=== PATIENT | female | born 1990 | race Caucasian/White ===

== ENCOUNTER 2016-05-11 22:07 | Emergency (ER) | payer OTHER ==
--- NOTE | 2016-05-12 00:14 | EDM.PDOC ---
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 Tonight patient had some spotting which is now completely resolved. She has no discharge has not passed any tissue. Occasional very mild pelvic cramping now resolved. Normal bowel and bladder habits. Patient has no abnormal vaginal discharge other than the trace spotting which she experienced earlier Review of systems: As per history of present illness and below otherwise all systems reviewed and negative. Past medical history: As per history of present illness and as reviewed below otherwise noncontributory. Surgical history: As per history of present illness and as reviewed below otherwise noncontributory. Social history: No reported history of drug or alcohol abuse. Family history: As per history of present illness and as reviewed below otherwise noncontributory. Physical exam: HEENT: Atraumatic, normocephalic, negative for conjunctival pallor or scleral icterus, mucous membranes moist, throat clear, neck supple, nontender, trachea midline. Lungs: Clear to auscultation, breath sounds equal bilaterally, chest nontender. Heart: S1S2, regular, negative for clicks, rubs, or JVD. Abdomen: Soft, nondistended, nontender. Negative for masses or hepatosplenomegaly. Negative for costovertebral tenderness. Pelvis: Stable nontender. Genitourinary: Patient refusing pelvic exam as she feels it is not necessary tonight given that her pain and spotting have completely resolved and she has no discharge. Rectal: Deferred. Extremities: Atraumatic, negative for cords or calf pain. Neurovascular unremarkable. Neuro: Awake, alert, oriented. Motor and sensory unremarkable throughout. Exam nonfocal. Diagnostics: [] Therapeutics: [] Impression: [Times and symptoms consistent with spotting in early discussed with patient possibility of insinuating within normal healthy however it may represent threatened miscarriage. Patient is Rh positive. Both she and her mother are well aware that her blood type is B+. Quantitative hCG is over 4000. This number was given to patient for outpatient followup with her doctor in comparative use. Offered pelvic exam to rule out passing tissue or active bleeding however patient does not feel this is indicated tonight and elects to not have a pelvic exam as she is not having any pain in her spotting completely resolved. She will return immediately for worsening or severe bleeding or uncontrolled pain. She is aware to do pelvic rest drink plenty of fluids.] And followup with her RACEBOOK WRITER doctor in one to 2 days. Patient and family agree with outpatient followup and strict return precautions given. Plan: [] Definitive disposition and diagnosis as appropriate pending reevaluation and review of above. - Related Data Allergies/ADRs: Allergies Allergy/AdvReac Type Severity Reaction Status Date / Time amoxicillin Allergy Airway Verified 05/11/16 22:12 Tightness Home Meds: Home Meds Subcutaneous Insulin Pump [Insulin Pump] 1 dose SQ DAILY 06/10/14 [History] Past Medical History HEENT History: Reports: None Cardiovascular History: Reports: None Respiratory History: Reports: None Gastrointestinal History: Reports: None Genitourinary History: Reports: None RACEBOOK WRITER History: Reports: None Neurological History: Reports: Migraines Psychiatric History: Reports: None Endocrine/Metabolic History: Reports: Diabetes, type I Dermatologic History: Reports: None - Infectious Disease History Infectious Disease History: Reports: None - Past Surgical History Female Surgical History: Reports: None Other Endocrine Surgeries/Procedures: Patient has an insulin pump Musculoskeletal Surgical History: Reports: Other (see below) Other Musculoskeletal Surgeries/Procedures:: right knee surgery and right leg extraction Social & Family History - Family History Family Medical History: Noncontributory - Tobacco Use Smoking Status *Q: Never Smoker Years of Tobacco use: 10 Used Tobacco, but Quit: Yes Month Tobacco Last Used: 02/2013 Second Hand Smoke Exposure: No - Caffeine Use Caffeine Use: Reports: Coffee, Energy drinks, Soda - Alcohol Use Days Per Week of Alcohol Use: 1 Number of Drinks Per Day: 1 Total Drinks Per Week: 1 - Recreational Drug Use Recreational Drug Use: No ED ROS GENERAL - Review of Systems Review Of Systems: See Below (History of present illness) ED EXAM - Physical Exam Exam: See Below (History of present illness) Course - Vital Signs Last Recorded V/S: Last Vital Signs Temp 36.6 C 05/11/16 22:13 Pulse 68 05/11/16 22:13 Resp 18 05/11/16 22:13 BP 131/72 05/11/16 22:13 Pulse Ox 99 05/11/16 22:13 - Orders/Labs/Meds Orders: Active Orders 24 hr Category Date Time Status OB 1st Tri Ea Addl Gest [US] Stat Exams 05/11/16 22:22 Ordered Labs: Laboratory Tests 05/11/16 05/11/16 05/11/16 Range/Units 22:38 22:38 22:48 Hgb 14.7 (12.0-16.0) g/dL Hct 44.1 (36.0-46.0) % HCG, Quant 4561.2 mIU/mL Blood Type B POSITIVE Departure - Departure Time of Disposition: 00:09 Disposition: Home, Self-Care 01 Condition: good Clinical Impression: Threatened miscarriage in early , Bleeding in early Referrals: Debbie Concepcion MD [Primary Care Provider] - Forms: ED Department Discharge Additional Instructions: As per your description by your RACEBOOK WRITER doctor your is approximately 7 weeks gestation. You had spotting or mild bleeding today however your hemoglobin was normal which means you're not anemic. your quantitative hCG was 4561. Followup with your RACEBOOK WRITER doctor to repeat this level for comparison as an indication as to whether your is progressing normally. As you and your mother are well aware your blood type is B+, a blood type which does not require treatment with special medication for bleeding in . Followup with her RACEBOOK WRITER doctor in one to 2 days for reevaluation and repeat quantitative hCG and return immediately for new severe or worsening symptoms specifically severe bleeding or uncontrolled pain. - My Orders Last 24 Hours: My Active Orders 05/11/16 22:22 OB 1st Tri Ea Addl Gest [US] Stat - Assessment/Plan Last 24 Hours: My Active Orders 05/11/16 22:22 OB 1st Tri Ea Addl Gest [US] Stat
[2016-05-12 00:41] VITALS: BP 129/87
== END 2016-05-12 00:38 | disposition home or self-care (01) ==
LOC: MW.ED 22:07
DX: O20.0 Threatened abortion (principal); O20.9 Hemorrhage in early pregnancy, unspecified; E10.9 Type 1 diabetes mellitus without complications; Z3A.01 Less than 8 weeks gestation of pregnancy; Z88.1 Allergy status to other antibiotic agents; Z79.899 Other long term (current) drug therapy; Z98.890 Other specified postprocedural states
CPT/HCPCS: 36415; 84702; 85014; 85018; 86900; 86901; 99283; 99284

== ENCOUNTER 2016-07-28 08:46 | Emergency (ER) | payer OTHER ==
[2016-07-28] MEDS ORDERED: Benzocaine 20% Topical Spray UD MUCMEM ONE (09:20)
[2016-07-28] MEDS ORDERED: Lidocaine 2% Viscous Solution 15 ML Cup PO ONE (09:20)
--- NOTE | 2016-07-28 09:25 | EDM.PDOC ---
ED HPI GENERAL MEDICAL PROBLEM - General Chief Complaint: ENT Problem Stated Complaint: TOOTH PAIN Time Seen by Provider: 07/28/16 09:13 - History of Present Illness INITIAL COMMENTS - FREE TEXT/NARRATIVE: HISTORY AND PHYSICAL: History of present illness: The patient is a 26-year-old female who is up roughly 9 weeks and presents with complaints of dental pain for last several days. Patient has long- standing history of dental problems and has contacted her dentist but cannot get in for several months. She is here for the pain and she is worried about infection. She has no related complaints Review of systems: As per history of present illness and below otherwise all systems reviewed and negative. Past medical history: As per history of present illness and as reviewed below otherwise noncontributory. Surgical history: As per history of present illness and as reviewed below otherwise noncontributory. Social history: No reported history of drug or alcohol abuse. Family history: As per history of present illness and as reviewed below otherwise noncontributory. Physical exam: HEENT: Atraumatic, normocephalic, pupils reactive, negative for conjunctival pallor or scleral icterus, mucous membranes moist, throat clear, neck supple, nontender, trachea midline. No cervical adenopathy and multiple areas of dental decay and disease the most noteworthy is the left lower molar where there is a fractured tooth and swelling of the gum but no fluctuance Lungs: Clear to auscultation, breath sounds equal bilaterally, chest nontender. Heart: S1S2, regular rate and rhythm no overt murmurs Abdomen: Soft, nondistended, nontender. NABS Genitourinary: Deferred. Rectal: Deferred. Extremities: Atraumatic, negative for cords or calf pain. Neurovascular unremarkable. Neuro: Awake, alert, oriented. Cranial nerves II through XII unremarkable. Cerebellum unremarkable. Motor and sensory unremarkable throughout. Exam nonfocal. Diagnostics: [] Therapeutics: Dental balls I told the patient that I would give her the dental balls but I cannot give her recommend anything stronger than Tylenol for pain. I will give her clindamycin as she is allergic to amoxicillin she call her OB doctor for further pain management Impression: Dental disease and dental pain and infection Definitive disposition and diagnosis as appropriate pending reevaluation and review of above. - Related Data Allergies Allergy/AdvReac Type Severity Reaction Status Date / Time amoxicillin Allergy Airway Verified 07/28/16 09:19 Tightness Home Meds: Home Meds Subcutaneous Insulin Pump [Insulin Pump] 1 dose SQ DAILY 06/10/14 [History] Folic Acid 1 mg PO DAILY 07/28/16 [History] PNV95/Ferrous Fumarate/FA [ Tablet] 1 each PO DAILY 07/28/16 [History] Past Medical History HEENT History: Reports: None Cardiovascular History: Reports: None Respiratory History: Reports: None Gastrointestinal History: Reports: None Genitourinary History: Reports: None ULTRASOUND TECH History: Reports: None Neurological History: Reports: Migraines Psychiatric History: Reports: None Endocrine/Metabolic History: Reports: Diabetes, Type I Dermatologic History: Reports: None - Infectious Disease History Infectious Disease History: Reports: None - Past Surgical History Musculoskeletal Surgical History: Reports: Other (See Below) Social & Family History - Family History Family Medical History: Noncontributory - Tobacco Use Smoking Status *Q: Never Smoker Years of Tobacco use: 10 Used Tobacco, but Quit: Yes Month Tobacco Last Used: 02/2013 Second Hand Smoke Exposure: No - Caffeine Use Caffeine Use: Reports: Coffee, Energy Drinks, Soda - Alcohol Use Days Per Week of Alcohol Use: 1 Number of Drinks Per Day: 1 Total Drinks Per Week: 1 - Recreational Drug Use Recreational Drug Use: No ED ROS GENERAL - Review of Systems Review Of Systems: ROS reveals no pertinent complaints other than HPI. ED EXAM, GENERAL - Physical Exam Exam: See Below (See dictation) Course - Orders/Labs/Meds Meds: Medications Discontinued Medications Generic Name Dose Route Start Last Admin Trade Name Freq PRN Reason Stop Dose Admin Benzocaine 2 each 07/28/16 09:20 Hurricaine One 20% MUCMEM 07/28/16 09:21 ONETIME ONE Lidocaine HCl 15 ml 07/28/16 09:20 Xylocaine 2% Viscous PO 07/28/16 09:21 ONETIME ONE Departure - Departure Time of Disposition: 09:24 Disposition: Home, Self-Care 01 Condition: Good Clinical Impression: Dental infection - Discharge Information Forms: ED Department Discharge Additional Instructions: The following information is given to patients seen in the emergency department who are being discharged to home. This information is to outline your options for follow-up care. We provide all patients seen in our emergency department with a follow-up referral. The need for follow-up, as well as the timing and circumstances, are variable depending upon the specifics of your emergency department visit. If you don't have a primary care physician on staff, we will provide you with a referral. We always advise you to contact your personal physician following an emergency department visit to inform them of the circumstance of the visit and for follow-up with them and/or the need for any referrals to a consulting specialist. The emergency department will also refer you to a specialist when appropriate. This referral assures that you have the opportunity for followup care with a specialist. All of these measure are taken in an effort to provide you with optimal care, which includes your followup. Under all circumstances we always encourage you to contact your private physician who remains a resource for coordinating your care. When calling for followup care, please make the office aware that this follow-up is from your recent emergency room visit. If for any reason you are refused follow-up, please contact the [facility] emergency department at and ask to speak to the emergency department charge nurse. [facility] Primary care- Internal Medicine and Family [place] [phone] Use ice to face for any swelling take all medications as prescribed and use dental balls for pain as well as [id number] Tylenol. Please follow-up with a dentist for definitive care and treatment and call your OB MD for further recommendations for pain management. Return to ER as needed and as discussed
[2016-07-28 12:04] VITALS: BP 110/75
== END 2016-07-28 09:48 | disposition home or self-care (01) ==
LOC: MW.ED 08:46
DX: O99.611 Diseases of the digestive system complicating pregnancy, first trimester (principal); K04.7 Periapical abscess without sinus; G43.909 Migraine, unspecified, not intractable, without status migrainosus; E10.9 Type 1 diabetes mellitus without complications; Z79.899 Other long term (current) drug therapy; Z87.891 Personal history of nicotine dependence; Z88.1 Allergy status to other antibiotic agents; Z3A.09 9 weeks gestation of pregnancy
CPT/HCPCS: 99282; A9270; 99283

== ENCOUNTER 2016-08-10 21:50 | Emergency (ER) | payer OTHER ==
--- NOTE | 2016-08-10 22:07 | EDM.PDOC ---
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 Stated Complaint: 11 WEEKS/CRAMPING Time Seen by Provider: 08/10/16 22:07 Source of Information: Reports: Patient - History of Present Illness INITIAL COMMENTS - FREE TEXT/NARRATIVE: HISTORY AND PHYSICAL: History of present illness: []Patient with history of 5 previous pregnancies all miscarried prior to 11 weeks presents with 11 weeks with IUP and vaginal bleeding she has had some crampy pelvic pain throughout the day and passed several brown clots No fever nausea vomiting chills sweats no chest pain shortness breath headache dizziness or palpitation no bowel or urine symptoms Review of systems: As per history of present illness and below otherwise all systems reviewed and negative. Past medical history: As per history of present illness and as reviewed below otherwise noncontributory. Surgical history: As per history of present illness and as reviewed below otherwise noncontributory. Social history: No reported history of drug or alcohol abuse. Family history: As per history of present illness and as reviewed below otherwise noncontributory. Physical exam: HEENT: Atraumatic, normocephalic, pupils reactive, negative for conjunctival pallor or scleral icterus, mucous membranes moist, throat clear, neck supple, nontender, trachea midline. Lungs: Clear to auscultation, breath sounds equal bilaterally, chest nontender. Heart: S1S2, regular, negative for clicks, rubs, or JVD. Abdomen: Soft, nondistended, nontender. Negative for masses or hepatosplenomegaly. Negative for costovertebral tenderness. Pelvis: Stable nontender. Genitourinary: On vaginal exam cervix is closed there is some whitish mucus however no blood no mass scar or lesion internal or external Rectal: Deferred. Extremities: Atraumatic, negative for cords or calf pain. Neurovascular unremarkable. Neuro: Awake, alert, oriented. Cranial nerves II through XII unremarkable. Cerebellum unremarkable. Motor and sensory unremarkable throughout. Exam nonfocal. Diagnostics: []Lab as below Ultrasound OB Limited Wet prep Therapeutics: []1 L normal saline bolus Regular insulin 10 units IV Impression: Hyperglycemia []11 weeks with IUP ABO type B positive on file Threatened No heart activity Definitive disposition and diagnosis as appropriate pending reevaluation and review of above. lower abdominal area Pain Score (Numeric/FACES): 5 - Related Data Allergies Allergy/AdvReac Type Severity Reaction Status Date / Time amoxicillin Allergy Airway Verified 08/10/16 21:58 Tightness Home Meds: Home Meds Subcutaneous Insulin Pump [Insulin Pump] 1 dose SQ DAILY 06/10/14 [History] Folic Acid 1 mg PO DAILY 07/28/16 [History] PNV95/Ferrous Fumarate/FA [ Tablet] 1 each PO DAILY 07/28/16 [History] Past Medical History HEENT History: Reports: None Cardiovascular History: Reports: None Respiratory History: Reports: None Gastrointestinal History: Reports: None Genitourinary History: Reports: None BALLASTER History: 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: Neurological History: Reports: Migraines Psychiatric History: Reports: Anxiety, Dementia Endocrine/Metabolic History: Reports: Diabetes, Type I Hematologic History: Reports: None Immunologic History: Reports: None Oncologic (Cancer) History: Reports: None Dermatologic History: Reports: None - Infectious Disease History Infectious Disease History: Reports: None - Past Surgical History Musculoskeletal Surgical History: Reports: Other (See Below) Social & Family History - Family History Family Medical History: Noncontributory - Tobacco Use Smoking Status *Q: Never Smoker Years of Tobacco use: 10 Used Tobacco, but Quit: Yes Month Tobacco Last Used: 02/2013 Second Hand Smoke Exposure: No - Caffeine Use Caffeine Use: Reports: Coffee, Tea Other Caffeine Use: 1-2 cups per day - Alcohol Use Days Per Week of Alcohol Use: 1 Number of Drinks Per Day: 1 Total Drinks Per Week: 1 - Recreational Drug Use Recreational Drug Use: No ED ROS GENERAL - Review of Systems Review Of Systems: See Below ED EXAM, GENERAL - Physical Exam Exam: See Below Course - Vital Signs Last Recorded V/S: Last Vital Signs Temp 36.4 C 08/10/16 21:58 Pulse 66 08/10/16 23:23 Resp 18 08/10/16 23:23 BP 134/81 08/10/16 23:23 Pulse Ox 99 08/10/16 23:23 - Orders/Labs/Meds Orders: Active Orders 24 hr Category Date Time Status Accu Check [Blood Glucose Check, Bedside] [RC] ONETIME Care 08/10/16 23:37 Active OB Ltd 1 or More Fetus [US] Stat Exams 08/10/16 22:05 Taken ABG [BLOOD GAS ARTERIAL] [BG] Stat Lab 08/10/16 22:49 Ordered Labs: Laboratory Tests 08/10/16 08/10/16 08/10/16 Range/Units 22:14 22:16 22:16 WBC 8.36 (4.0-11.0) K/uL RBC 4.55 (4.30-5.90) M/uL Hgb 13.5 (12.0-16.0) g/dL Hct 38.8 (36.0-46.0) % MCV 85.3 (80.0-98.0) fL MCH 29.7 (27.0-32.0) pg MCHC 34.8 (31.0-37.0) g/dL RDW Std Deviation 39.4 (28.0-62.0) fl RDW Coeff of Thomas 13 (11.0-15.0) % Plt Count 470 H (150-400) K/uL MPV 10.00 (7.40-12.00) fL Neut % (Auto) 37.0 L (48.0-80.0) % Lymph % (Auto) 55.7 H (16.0-40.0) % Ashe % (Auto) 6.1 (0.0-15.0) % Eos % (Auto) 0.8 (0.0-7.0) % Baso % (Auto) 0.4 (0.0-1.5) % Neut # (Auto) 3.1 (1.4-5.7) K/uL Lymph # (Auto) 4.7 H (0.6-2.4) K/uL Ashe # (Auto) 0.5 (0.0-0.8) K/uL Eos # (Auto) 0.1 (0.0-0.7) K/uL Baso # (Auto) 0.0 (0.0-0.1) K/uL Nucleated RBC % 0.0 /100WBC Nucleated RBCs # 0 K/uL Sodium 130 L (136-146) mmol/L Potassium 3.9 (3.5-5.1) mmol/L Chloride 98 (98-110) mmol/L Carbon Dioxide 20 L (21-31) mmol/L BUN 9 (6.0-23.0) mg/dL Creatinine 1.2 (0.6-1.5) mg/dL Est Cr Clr Drug Dosing 59.80 mL/min Estimated GFR (MDRD) 55.2 ml/min Glucose 609 H* (60-110) mg/dL Calcium 9.4 (8.8-10.8) mg/dL Total Bilirubin 0.4 (0.1-1.5) mg/dL AST 10 (5-40) IU/L ALT 9 (8-54) IU/L Alkaline Phosphatase 104 (40-150) Total Protein 7.2 (6.0-8.0) g/dL Albumin 3.9 (3.5-5.0) g/dL Globulin 3.3 (2.0-3.5) g/dL Albumin/Globulin Ratio 1.2 L (1.3-2.8) HCG, Quant 14234.9 mIU/mL Urine Color YELLOW Urine Appearance CLEAR Urine pH 6.0 (5.0-8.0) Ur Specific [place] <= 1.005 (1.001-1.035) Urine Protein NEGATIVE (NEGATIVE) mg/dL Urine Glucose (UA) >=1000 (NEGATIVE) mg/dL Urine Ketones NEGATIVE (NEGATIVE) mg/dL Urine Occult Blood NEGATIVE (NEGATIVE) Urine Nitrite NEGATIVE (NEGATIVE) Urine Bilirubin NEGATIVE (NEGATIVE) Urine Urobilinogen 0.2 (<2.0) EU/dL Ur Leukocyte Esterase NEGATIVE (NEGATIVE) Urine RBC 0-1 (0-2/HPF) Urine WBC 0-1 (0-5/HPF) Ur Epithelial Cells FEW (NONE-FEW) Urine Bacteria RARE (NEGATIVE) Madyson species DNA (NEGATIVE) Gardnerella DNA Probe Trichomonas DNA Probe (NEGATIVE) 08/10/16 Range/Units 22:35 WBC (4.0-11.0) K/uL RBC (4.30-5.90) M/uL Hgb (12.0-16.0) g/dL Hct (36.0-46.0) % MCV (80.0-98.0) fL MCH (27.0-32.0) pg MCHC (31.0-37.0) g/dL RDW Std Deviation (28.0-62.0) fl RDW Coeff of Thomas (11.0-15.0) % Plt Count (150-400) K/uL MPV (7.40-12.00) fL Neut % (Auto) (48.0-80.0) % Lymph % (Auto) (16.0-40.0) % Ashe % (Auto) (0.0-15.0) % Eos % (Auto) (0.0-7.0) % Baso % (Auto) (0.0-1.5) % Neut # (Auto) (1.4-5.7) K/uL Lymph # (Auto) (0.6-2.4) K/uL Ashe # (Auto) (0.0-0.8) K/uL Eos # (Auto) (0.0-0.7) K/uL Baso # (Auto) (0.0-0.1) K/uL Nucleated RBC % /100WBC Nucleated RBCs # K/uL Sodium (136-146) mmol/L Potassium (3.5-5.1) mmol/L Chloride (98-110) mmol/L Carbon Dioxide (21-31) mmol/L BUN (6.0-23.0) mg/dL Creatinine (0.6-1.5) mg/dL Est Cr Clr Drug Dosing mL/min Estimated GFR (MDRD) ml/min Glucose (60-110) mg/dL Calcium (8.8-10.8) mg/dL Total Bilirubin (0.1-1.5) mg/dL AST (5-40) IU/L ALT (8-54) IU/L Alkaline Phosphatase (40-150) Total Protein (6.0-8.0) g/dL Albumin (3.5-5.0) g/dL Globulin (2.0-3.5) g/dL Albumin/Globulin Ratio (1.3-2.8) HCG, Quant mIU/mL Urine Color Urine Appearance Urine pH (5.0-8.0) Ur Specific [place] (1.001-1.035) Urine Protein (NEGATIVE) mg/dL Urine Glucose (UA) (NEGATIVE) mg/dL Urine Ketones (NEGATIVE) mg/dL Urine Occult Blood (NEGATIVE) Urine Nitrite (NEGATIVE) Urine Bilirubin (NEGATIVE) Urine Urobilinogen (<2.0) EU/dL Ur Leukocyte Esterase (NEGATIVE) Urine RBC (0-2/HPF) Urine WBC (0-5/HPF) Ur Epithelial Cells (NONE-FEW) Urine Bacteria (NEGATIVE) Madyson species DNA POSITIVE H (NEGATIVE) Gardnerella DNA Probe NEGATIVE Trichomonas DNA Probe NEGATIVE (NEGATIVE) Meds: Medications Discontinued Medications Generic Name Dose Route Start Last Admin Trade Name Holley PRN Reason Stop Dose Admin Sodium Chloride 1,000 mls @ 999 mls/hr 08/10/16 22:47 08/10/16 23:18 Normal Saline IV 08/10/16 23:47 999 mls/hr STAT ONE Administration Insulin Human Regular 10 unit 08/10/16 22:48 08/10/16 23:19 Novolin R IVPUSH 08/10/16 22:49 10 units ONETIME ONE Administration Protocol Departure - Departure Time of Disposition: 23:54 Disposition: Home, Self-Care 01 Condition: Good Clinical Impression: Threatened , Hyperglycemia - Discharge Information Forms: ED Department Discharge - My Orders Last 24 Hours: My Active Orders 08/10/16 22:05 OB Ltd 1 or More Fetus [US] Stat 08/10/16 22:49 ABG [BLOOD GAS ARTERIAL] [BG] Stat 08/10/16 23:37 Accu Check [Blood Glucose Check, Bedside] [RC] ONETIME - Assessment/Plan Last 24 Hours: My Active Orders 08/10/16 22:05 OB Ltd 1 or More Fetus [US] Stat 08/10/16 22:49 ABG [BLOOD GAS ARTERIAL] [BG] Stat 08/10/16 23:37 Accu Check [Blood Glucose Check, Bedside] [RC] ONETIME
[2016-08-10] MEDS ORDERED: Sodium Chloride 0.9% 1,000 ML IV ONE (22:47)
[2016-08-10] MEDS ORDERED: Insulin Regular, Human 100 Units/ML 10 ML Vial IVPUSH ONE (22:48)
[2016-08-11 02:12] VITALS: BP 110/77
--- NOTE | 2016-08-11 16:03 | US ---
EXAM DATE: 08/10/16 PATIENT'S AGE: 26 Patient: BERNABE VICK Facility: [place], [place] Site . Site : 1990 Study: US OB Pelvis [id number]/[id number] 11:09:08 PM Ordering Physician: Shaan Brownlee Final Report: INDICATION: Bleeding and cramping TECHNIQUE: Ultrasound OB pelvis transvaginal. Real time echevarria scale imaging of the pelvis was performed. COMPARISON: None FINDINGS: LMP: 05/22/2016 Gestational age by LMP: 11 weeks 3 days Estimated due date by LMP: 02/26/2017 Sonographic imaging demonstrates a single living intrauterine gestation. No heart rate demonstrated. The embryo`s crown rump length measurement of 3.49 cm corresponds to a gestational age of 10 weeks 3 days with a sonographic due date of 03/05/2017. The fetus has a edematous appearance. No motion demonstrated. A yolk sac is identified. With that The placenta has not yet developed. The gestational sac has a normal appearance and there is no evidence of a perigestational hemorrhage. The amount of fluid within the sac appears appropriate for gestational age. The cervix is definitively demonstrated. The myometrium appears normal. The ovaries are of normal size. There are no suspicious fluid collections noted in the cul-de-sac. IMPRESSION: Single intrauterine with crown-rump length consistent with a gestational age of 10 weeks 3 days. This compares to a gestational age by LMP of 11 weeks 3 days. No heart motion demonstrated. The fetus has an edematous appearance with no evidence of activity. Dictated by Pablo Dumont MD @ 08/10/2016 11:23:21 PM Dictated by: Pablo Dumont MD @ 08/10/2016 23:23:35 (Electronic Signature) Report Signed by Proxy. RAUL
== END 2016-08-11 00:05 | disposition home or self-care (01) ==
LOC: MW.ED 21:50
DX: O20.0 Threatened abortion (principal); O24.011 Pre-existing type 1 diabetes mellitus, in pregnancy, first trimester; E10.65 Type 1 diabetes mellitus with hyperglycemia; Z87.891 Personal history of nicotine dependence; Z88.1 Allergy status to other antibiotic agents; Z3A.11 11 weeks gestation of pregnancy
CPT/HCPCS: 36415; 76815; 80053; 81001; 82962; 84702; 85025; 87480; 87510; 87660; 96361; 96374; 99284; J7040; 99283; J1815-GY

== ENCOUNTER 2016-08-16 06:27 | Day surgery (SDC) | payer OTHER ==
[~2016-08-16 06:27] MED LIST: Sodium Chloride 0.9% 10 ML Syringe FLUSH PRN; Sodium Chloride 0.9% 2.5 ML Syringe FLUSH PRN
--- NOTE | 2016-08-16 06:48 | PCM.PREANE ---
Preanesthetic Assessment - Anesthesia/Transfusion/Family Hx Anesthesia History: Prior Anesthesia Without Reaction Family History of Anesthesia Reaction: No Transfusion History: No Prior Transfusion(s) Intubation History: Unknown - Review of Systems General: No Symptoms Pulmonary: No Symptoms Cardiovascular: No Symptoms Gastrointestinal: No symptoms Neurological: No Symptoms Other: Reports: None - Physical Assessment O2 Sat by Pulse Oximetry: 98 Respiratory Rate: 16 Vital Signs: Last Vital Signs Temp 36.7 C 08/16/16 06:33 Pulse 67 08/16/16 06:33 Resp 16 08/16/16 06:33 BP 113/67 08/16/16 06:33 Pulse Ox 98 08/16/16 06:33 Height: 1.6 m Weight: 61 kg ASA Class: 2 Mental Status: Alert & Oriented x3 Airway Class: Mallampati = 2 Dentition: Reports: Normal Dentition Thyro-Mental Finger Breadths: 3 Mouth Opening Finger Breadths: 2 ROM/Head Extension: Full Lungs: Clear to auscultation, Normal respiratory effort Cardiovascular: Regular Rate, Regular Rhythm - Allergies Allergies/Adverse Reactions: Allergies Allergy/AdvReac Type Severity Reaction Status Date / Time amoxicillin Allergy Airway Verified 08/10/16 21:58 Tightness - Blood Blood Available: No - Anesthesia Plan Pre-Op Medication Ordered: None - Acknowledgements Anesthesia Type Planned: General Anesthesia Pt an Appropriate Candidate for the Planned Anesthesia: Yes Alternatives and Risks of Anesthesia Discussed w Pt/Guardian: Yes Pt/Guardian Understands and Agrees with Anesthesia Plan: Yes PreAnesthesia Questionnaire HEENT History: Reports: None Cardiovascular History: Reports: None Respiratory History: Reports: Asthma (very,very mild asthma) Gastrointestinal History: Reports: None Genitourinary History: Reports: None 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 Neurological History: Reports: Migraines Psychiatric History: Reports: Anxiety, Depression Endocrine/Metabolic History: Reports: Diabetes, Type I (since age9, now has insulin pump with sensor, glucose level 204 this morning) Hematologic History: Reports: None Immunologic History: Reports: None Oncologic (Cancer) History: Reports: None Dermatologic History: Reports: None - Infectious Disease History Infectious Disease History: Reports: None - Past Surgical History Head Surgeries/Procedures: Reports: None Female Surgical History: Reports: None Other Endocrine Surgeries/Procedures: Patient has an insulin pump Musculoskeletal Surgical History: Reports: Other (See Below) Other Musculoskeletal Surgeries/Procedures:: right knee surgery and right leg extraction Dermatological Surgical History: Reports: Other (See Below) (brown recluse spider bite infection I@D '09) - SUBSTANCE USE Smoking Status *Q: Former Smoker (quit 3 years ago) Second Hand Smoke Exposure: No Days Per Week of Alcohol Use: 1 Number of Drinks Per Day: 1 Total Drinks Per Week: 1 Recreational Drug Use History: No - HOME MEDS Home Medications: Home Meds Subcutaneous Insulin Pump [Insulin Pump] 1 dose SQ ASDIRECTED 06/10/14 [History] Folic Acid 1 mg PO DAILY 07/28/16 [History] PNV95/Ferrous Fumarate/FA [ Tablet] 1 each PO DAILY 07/28/16 [History] - CURRENT (IN HOUSE) MEDS Current Meds: Current Medications Sodium Chloride (Saline Flush) 10 ml FLUSH ASDIRECTED PRN PRN Reason: Keep Vein Open Sodium Chloride (Saline Flush) 2.5 ml FLUSH ASDIRECTED PRN PRN Reason: Keep Vein Open
[2016-08-16] MEDS ORDERED: Misoprostol 200 MCG Tab ONE (07:34)
[2016-08-16] MEDS ORDERED: Propofol 200 MG/20 ML SDV ONE (07:36)
[2016-08-16] MEDS ORDERED: fentaNYL 100 MCG/2 ML SDV ONE ×2 (07:36→08:21)
[2016-08-16] MEDS ORDERED: Lidocaine 2% 5 ML SDV ONE (07:36)
[2016-08-16] MEDS ORDERED: Midazolam 1 MG/ML 2 ML SDV ONE (07:37)
[2016-08-16] MEDS ORDERED: Ondansetron 4 MG/2 ML SDV ONE (08:21)
[2016-08-16] MEDS ORDERED: Ketorolac 30 MG/ML SDV ONE (08:21)
[2016-08-16] MEDS ORDERED: fentaNYL 100 MCG/2 ML SDV IVPUSH PRN (08:23)
--- NOTE | 2016-08-16 08:53 | PCM.OPNOTE ---
- General Post-Op/Procedure Note Date of Surgery/Procedure: 08/16/16 Operative Procedure(s): Suction D&C Findings: Products of conception Pre Op Diagnosis: Missed Post-Op Diagnosis: Same Anesthesia Technique: General LMA Primary Surgeon: Kylie Ventura Fluid Replacement, Intraop: 700 EBL in mLs: 60 Condition: Good Free Text/Narrative:: Dictation [id number]
[2016-08-16 09:41] VITALS: BP 134/62
--- NOTE | 2016-08-16 10:35 | OR ---
SURGEON: Kylie Ventura M.D. DATE OF PROCEDURE: 08/16/2016 PREOPERATIVE DIAGNOSIS: Missed . POSTOPERATIVE DIAGNOSIS: Missed . PROCEDURE: Suction dilation and curettage. ANESTHESIA: General LMA. ESTIMATED BLOOD LOSS: 60 mL. FLUIDS: 700 mL crystalloid. COMPLICATIONS: None. FINDINGS: Uterus sounding to approximately 8-9 cm with products of conception returned. DISPOSITION: The patient to PACU, stable. PROCEDURE DETAILS: Jacqueline is a 26-year-old female, who recently has been diagnosed with a missed . She has falling hCG levels and on examination with ultrasound, fetus is measuring 10 weeks with no cardiac activity where there had previously been cardiac activity present. Complicating her clinical presentation is the fact that she is type 1 diabetic with insulin pump and hemoglobin A1c of 13.1. Glucose this morning was 204. After discussing options with her, she would like to proceed with suction D and C. Risks of the procedure have been discussed. Proper consent obtained. The patient was taken to operating room, where she underwent general LMA, was placed in modified dorsal lithotomy position and was prepped and draped in usual sterile fashion. The bladder was drained. SCDs to lower extremities. Time-out was performed. Speculum was introduced in the vagina. Posterior lip of cervix was grasped with an Allis clamp. Cervix was gently dilated to 9 mm after sounding to 8 cm. Using an 8 mm curved curette, this was gently introduced to the fundus and suction applied, was able to evacuate the uterine cavity of products of conception. Gentle curettage was now performed. Myometrial tissue was able to be palpated circumferentially. The patient has tolerated this procedure well. Hemostasis appears evident. All specimens will be sent to pathology. All instruments were removed from vagina. Sponge and instrument count was correct. The patient will go to PACU in stable condition. IRENE / IRINEO /[id number]
== END 2016-08-16 09:47 | disposition home or self-care (01) ==
LOC: MW.SDS 06:27
PROVIDERS: ATTEND Obstetrics & Gynecology
DX: O02.1 Missed abortion (principal); E11.9 Type 2 diabetes mellitus without complications; F32.9 Major depressive disorder, single episode, unspecified; F41.9 Anxiety disorder, unspecified; J45.909 Unspecified asthma, uncomplicated; Z98.890 Other specified postprocedural states; Z87.891 Personal history of nicotine dependence; Z79.899 Other long term (current) drug therapy; Z88.1 Allergy status to other antibiotic agents
CPT/HCPCS: 36415; 59820; 82962; 85027; 88305; J1885; J2250; J2405; J3010; 01965; A9270-GY; J2704

== ENCOUNTER 2017-04-07 15:47 | Emergency (ER) | payer OTHER ==
[2017-04-07 16:03] VITALS: BP 111/68
--- NOTE | 2017-04-07 16:16 | EDM.PDOC ---
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 Bergman, presents to the ER with a chief complaint of lower abdominal cramping over the past few days. Patient has had 5 previous miscarriages. With the first 4 miscarriages, the patient experienced significant bleeding and lower abdominal cramping. With the most recent miscarriage, the patient experienced no bleeding but lower abdominal cramping and notes that her current symptoms are very similar to her last miscarriage. Patient notes that the lower abdominal cramping waxes and wanes with no aggravating or relieving factors. She does have some nausea. Patient is a . She is currently taking vitamins. She is a type I diabetic and currently uses an insulin pump. She denies any discomfort with urination and notes that her bowel and bladder habits are unchanged. She has not had any trauma to the abdomen. She has a follow-up appointment with Dr. Bergman, next week. Currently, she denies any abdominal pain, cramping, chest pain , palpitations, shortness of breath, wheezing, fever, constipation, diarrhea. Blood type is B+ according to labs on record here at the hospital on May 11. Review of systems: As per history of present illness and below otherwise all systems reviewed and negative. Past medical history: As per history of present illness and as reviewed below otherwise noncontributory. Surgical history: As per history of present illness and as reviewed below otherwise noncontributory. Social history: No reported history of drug or alcohol abuse. Family history: As per history of present illness and as reviewed below otherwise noncontributory. Physical exam: HEENT: Atraumatic, normocephalic, pupils reactive, negative for conjunctival pallor or scleral icterus, mucous membranes moist, throat clear, neck supple, nontender, trachea midline. Lungs: Clear to auscultation, breath sounds equal bilaterally, chest nontender. Heart: S1S2, regular, negative for clicks, rubs, or JVD. Abdomen: Soft, nondistended, nontender. Negative for masses or hepatosplenomegaly. Negative for costovertebral tenderness. Pelvis: Pelvic exam was done and the cervix is closed. No bleeding appreciated. Genitourinary: normal appearing female external genitalia. Rectal: Deferred. Extremities: Atraumatic, negative for cords or calf pain. Neurovascular unremarkable. Neuro: Awake, alert, oriented. Cranial nerves II through XII unremarkable. Cerebellum unremarkable. Motor and sensory unremarkable throughout. Exam nonfocal. Diagnostics: CBC, UA, urine culture, Serum HCG, Pelvic U/S, Accu-Chek Pelvic ultrasound shows an intrauterine but no heart tones consistent with demise. Therapeutics: Impression: #1. First trimester miscarriage Plan: #1. I spoke with Dr. Bergman in regards to the patient. He knows that the patient is not bleeding and wants the patient to follow-up in his clinic on Monday. This information was given to the patient she was told to call Dr Yoon clinic Monday morning to set up an appointment for that day. She was told to follow-up in the ER should she have any additional concerns over the weekend. Definitive disposition and diagnosis as appropriate pending reevaluation and review of above. (Miguel Ángel Perez) This is Dr. Valencia dictating addendum note as the supervising physician on this case. I agree with history and physical as above and per my review of the computer history she did have a missed in mid August of this past year for which she underwent a D&C with [facility]. Her blood type is B+ as of May 2016. Her exam is as above and we will continue to evaluate with labs and pelvic ultrasound. Testing results were discussed by Dr. Perez with the patient as well as with her provider Dr. Bergman. Dr. Bergman wants to see the patient in his clinic on Monday for follow-up and to develop a care plan for this demise. Patient will be advised on reasons to return to the ED and to call and get an appointment time. The serum quantitative hCG is pending at this time but in light of the ultrasound we will not hold the patient for that. Impression: demise first trimester pregnency (Italai Valencia) - Related Data Allergies Allergy/AdvReac Type Severity Reaction Status Date / Time amoxicillin Allergy Airway Verified 08/10/16 21:58 Tightness Home Meds: Home Meds Subcutaneous Insulin Pump [Insulin Pump] 1 dose SQ ASDIRECTED 06/10/14 [History] Folic Acid 1 mg PO DAILY 07/28/16 [History] PNV95/Ferrous Fumarate/FA [ Tablet] 1 each PO DAILY 07/28/16 [History] Past Medical History HEENT History: Reports: None Cardiovascular History: Reports: None Respiratory History: Reports: Asthma (very,very mild asthma) Gastrointestinal History: Reports: None Genitourinary History: Reports: None 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 Neurological History: Reports: Migraines Psychiatric History: Reports: Anxiety, Depression Endocrine/Metabolic History: Reports: Diabetes, Type I (since age9, now has insulin pump with sensor, glucose level 204 this morning) Hematologic History: Reports: None Immunologic History: Reports: None Oncologic (Cancer) History: Reports: None Dermatologic History: Reports: None - Infectious Disease History Infectious Disease History: Reports: None - Past Surgical History Head Surgeries/Procedures: Reports: None Female Surgical History: Reports: None Other Endocrine Surgeries/Procedures: Patient has an insulin pump Musculoskeletal Surgical History: Reports: Other (See Below) Other Musculoskeletal Surgeries/Procedures:: right knee surgery and right leg extraction Dermatological Surgical History: Reports: Other (See Below) (brown recluse spider bite infection I@D '09) Social & Family History - Family History Family Medical History: Noncontributory - Tobacco Use Smoking Status *Q: Former Smoker (quit 3 years ago) Years of Tobacco use: 10 Used Tobacco, but Quit: Yes Month Tobacco Last Used: 02/2013 Second Hand Smoke Exposure: No - Caffeine Use Caffeine Use: Reports: Coffee, Tea Other Caffeine Use: 1-2 cups per day - Alcohol Use Days Per Week of Alcohol Use: 1 Number of Drinks Per Day: 1 Total Drinks Per Week: 1 - Recreational Drug Use Recreational Drug Use: No ED ROS GENERAL - Review of Systems Review Of Systems: ROS reveals no pertinent complaints other than HPI. ED EXAM - Physical Exam Exam: See Below - Physical Exam Text/Narrative:: See dictation (Miguel Ángel Perez) - Vital Signs Last Recorded V/S: Last Vital Signs Temp 36.8 C 04/07/17 15:58 Pulse 85 04/07/17 15:58 Resp 18 04/07/17 15:58 BP 111/68 04/07/17 15:58 Pulse Ox 99 04/07/17 15:58 - Orders/Labs/Meds Orders: Active Orders 24 hr Category Date Time Status Blood Glucose Check, Bedside [RC] ONETIME Care 04/07/17 16:58 Active OB 1st Tri Sgl 1st Gest [US] Stat Exams 04/07/17 16:16 Taken CULTURE URINE [RM] Stat Lab 04/07/17 17:05 Received HCG QUANTITATIVE,SERUM [CHEM] Stat Lab 04/07/17 16:35 Received Labs: Laboratory Tests 04/07/17 04/07/17 04/07/17 Range/Units 16:35 17:05 17:05 WBC 8.78 (4.0-11.0) K/uL RBC 4.56 (4.30-5.90) M/uL Hgb 13.2 (12.0-16.0) g/dL Hct 38.8 (36.0-46.0) % MCV 85.1 (80.0-98.0) fL MCH 28.9 (27.0-32.0) pg MCHC 34.0 (31.0-37.0) g/dL RDW Std Deviation 40.6 (28.0-62.0) fl RDW Coeff of Thomas 13 (11.0-15.0) % Plt Count 493 H (150-400) K/uL MPV 9.70 (7.40-12.00) fL Neut % (Auto) 46.8 L (48.0-80.0) % Lymph % (Auto) 43.7 H (16.0-40.0) % [place] % (Auto) 8.4 (0.0-15.0) % Eos % (Auto) 0.8 (0.0-7.0) % Baso % (Auto) 0.3 (0.0-1.5) % Neut # (Auto) 4.1 (1.4-5.7) K/uL Lymph # (Auto) 3.8 H (0.6-2.4) K/uL [place] # (Auto) 0.7 (0.0-0.8) K/uL Eos # (Auto) 0.1 (0.0-0.7) K/uL Baso # (Auto) 0.0 (0.0-0.1) K/uL Nucleated RBC % 0.0 /100WBC Nucleated RBCs # 0 K/uL POC Glucose (60-110) mg/dL Urine Color YELLOW Urine Appearance CLEAR Urine pH 6.0 (5.0-8.0) Ur Specific [place] 1.010 (1.001-1.035) Urine Protein NEGATIVE (NEGATIVE) mg/dL Urine Glucose (UA) >=1000 (NEGATIVE) mg/dL Urine Ketones NEGATIVE (NEGATIVE) mg/dL Urine Occult Blood NEGATIVE (NEGATIVE) Urine Nitrite NEGATIVE (NEGATIVE) Urine Bilirubin NEGATIVE (NEGATIVE) Urine Urobilinogen 0.2 (<2.0) EU/dL Ur Leukocyte Esterase NEGATIVE (NEGATIVE) Urine RBC 0-1 (0-2/HPF) Urine WBC 0-1 (0-5/HPF) Ur Epithelial Cells FEW (NONE-FEW) Urine Bacteria RARE (NEGATIVE) Urine HCG, Qual POSITIVE (NEGATIVE) 04/07/17 Range/Units 17:15 WBC (4.0-11.0) K/uL RBC (4.30-5.90) M/uL Hgb (12.0-16.0) g/dL Hct (36.0-46.0) % MCV (80.0-98.0) fL MCH (27.0-32.0) pg MCHC (31.0-37.0) g/dL RDW Std Deviation (28.0-62.0) fl RDW Coeff of Thomas (11.0-15.0) % Plt Count (150-400) K/uL MPV (7.40-12.00) fL Neut % (Auto) (48.0-80.0) % Lymph % (Auto) (16.0-40.0) % [place] % (Auto) (0.0-15.0) % Eos % (Auto) (0.0-7.0) % Baso % (Auto) (0.0-1.5) % Neut # (Auto) (1.4-5.7) K/uL Lymph # (Auto) (0.6-2.4) K/uL [place] # (Auto) (0.0-0.8) K/uL Eos # (Auto) (0.0-0.7) K/uL Baso # (Auto) (0.0-0.1) K/uL Nucleated RBC % /100WBC Nucleated RBCs # K/uL POC Glucose 230 H (60-110) mg/dL Urine Color Urine Appearance Urine pH (5.0-8.0) Ur Specific [place] (1.001-1.035) Urine Protein (NEGATIVE) mg/dL Urine Glucose (UA) (NEGATIVE) mg/dL Urine Ketones (NEGATIVE) mg/dL Urine Occult Blood (NEGATIVE) Urine Nitrite (NEGATIVE) Urine Bilirubin (NEGATIVE) Urine Urobilinogen (<2.0) EU/dL Ur Leukocyte Esterase (NEGATIVE) Urine RBC (0-2/HPF) Urine WBC (0-5/HPF) Ur Epithelial Cells (NONE-FEW) Urine Bacteria (NEGATIVE) Urine HCG, Qual (NEGATIVE) Departure - Departure Time of Disposition: 18:00 Condition: Good - Departure Disposition: Home, Self-Care 01 Clinical Impression: demise - Discharge Information Instructions: Miscarriage, [id number] Referrals: Cesar Bergman MD [Physician] - Forms: ED Department Discharge Additional Instructions: The following information is given to patients seen in the emergency department who are being discharged to home. This information is to outline your options for follow-up care. We provide all patients seen in our emergency department with a follow-up referral. The need for follow-up, as well as the timing and circumstances, are variable depending upon the specifics of your emergency department visit. If you don't have a primary care physician on staff, we will provide you with a referral. We always advise you to contact your personal physician following an emergency department visit to inform them of the circumstance of the visit and for follow-up with them and/or the need for any referrals to a consulting specialist. The emergency department will also refer you to a specialist when appropriate. This referral assures that you have the opportunity for follow-up care with a specialist. All of these measure are taken in an effort to provide you with optimal care, which includes your follow-up. Under all circumstances we always encourage you to contact your private physician who remains a resource for coordinating your care. When calling for follow-up care, please make the office aware that this follow-up is from your recent emergency room visit. If for any reason you are refused follow-up, please contact the [facility] Emergency Department at and asked to speak to the emergency department charge nurse. [facility] - Women[facility] [address] [place] [phone] Please call the above number Monday to set up an appointment with Dr. Bergman. - My Orders Last 24 Hours: My Active Orders 04/07/17 16:58 Blood Glucose Check, Bedside [RC] ONETIME - Assessment/Plan Last 24 Hours: My Active Orders 04/07/17 16:58 Blood Glucose Check, Bedside [RC] ONETIME
--- NOTE | 2017-04-10 05:04 | US ---
EXAM DATE: 04/07/17 PATIENT'S AGE: 26 Patient: BERNABE VICK Facility: [place], [place] Site . Site : 1990 Study: US OB Pelvis -04/07/2017 5:16:29 PM Ordering Physician: Chris Del Rosario Final Report: HISTORY: Cramping. Strong history of miscarriage. FINDINGS: Multiple echevarria scale static images from a trans abdominal OB ultrasound were evaluated. Six cine series were obtained. An intrauterine gestational sac is present. It contains a 3 mm yolk sac and pole. The crown-rump length is 1.7 cm consistent with 8 weeks 1 day. There is no the lower cardiac motion identified. There is a crescent of hypoechogenicity seen adjacent to the gestational sac most likely is an implantation bleed or small subchorionic hemorrhage. The right ovary measures 4.2 x 1.9 x 2.9 cm and is normal appearance. The left ovary measures 4.1 x 1.5 x 2.1 cm and is normal. IMPRESSION: Intrauterine with the pole has a crown-rump length of 1.7 cm. There is no or cardiac motion compatible with demise. Dictated by Anahy Gresham MD @ 04/07/2017 5:39:41 PM Dictated by: Anahy Gresham MD @ 04/07/2017 17:39:50 (Electronic Signature) Report Signed by Proxy. RAUL
== END 2017-04-07 18:15 | disposition home or self-care (01) ==
LOC: MW.ED 15:47
DX: O02.1 Missed abortion (principal); E10.9 Type 1 diabetes mellitus without complications; Z79.4 Long term (current) use of insulin; Z87.891 Personal history of nicotine dependence; Z88.1 Allergy status to other antibiotic agents
CPT/HCPCS: 36415; 76801; 76801-26; 81001; 81025; 82962; 84702; 85025; 87086; 99284; 99284-25

== ENCOUNTER 2017-04-13 06:41 | Day surgery (SDC) | payer OTHER ==
[~2017-04-13 06:41] MED LIST changes: +Lactated Ringers 1,000 ML IV SCH
[2017-04-13] MEDS ORDERED: Midazolam 1 MG/ML 2 ML SDV ONE (07:22)
[2017-04-13] MEDS ORDERED: Propofol 200 MG/20 ML SDV ONE (07:22)
[2017-04-13] MEDS ORDERED: fentaNYL 100 MCG/2 ML SDV ONE (07:22)
--- NOTE | 2017-04-13 07:22 | PCM.PREANE ---
Preanesthetic Assessment - Anesthesia/Transfusion/Family Hx Anesthesia History: Prior Anesthesia Without Reaction Family History of Anesthesia Reaction: No Transfusion History: No Prior Transfusion(s) Intubation History: Unknown - Review of Systems General: No Symptoms Pulmonary: No Symptoms Cardiovascular: No Symptoms Gastrointestinal: No Symptoms Neurological: No Symptoms Other: Reports: None - Physical Assessment Height: 1.6 m Weight: 62.596 kg ASA Class: 2 Mental Status: Alert & Oriented x3 Airway Class: Mallampati = 2 Dentition: Reports: Broken Tooth/Teeth (few - upper right) Thyro-Mental Finger Breadths: 3 Mouth Opening Finger Breadths: 2 ROM/Head Extension: Full Lungs: Clear to Auscultation, Normal Respiratory Effort Cardiovascular: Regular Rate, Regular Rhythm - Lab Values: Laboratory Last Values POC Glucose 163 mg/dL (60-110) H 04/13/17 07:06 - Allergies Allergies/Adverse Reactions: Allergies Allergy/AdvReac Type Severity Reaction Status Date / Time amoxicillin Allergy Airway Verified 04/11/17 09:16 Tightness - Blood Blood Available: No - Anesthesia Plan Pre-Op Medication Ordered: None - Acknowledgements Anesthesia Type Planned: General Anesthesia Pt an Appropriate Candidate for the Planned Anesthesia: Yes Alternatives and Risks of Anesthesia Discussed w Pt/Guardian: Yes Pt/Guardian Understands and Agrees with Anesthesia Plan: Yes PreAnesthesia Questionnaire HEENT History: Reports: None Cardiovascular History: Reports: None Respiratory History: Reports: Asthma Gastrointestinal History: Reports: None Genitourinary History: Reports: None 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 Neurological History: Reports: Migraines Psychiatric History: Reports: Anxiety, Depression Endocrine/Metabolic History: Reports: Diabetes, Type I (juvenile diabetes since age 8, last A1C a year ago was 13, today glucose 163) Hematologic History: Reports: None Immunologic History: Reports: None Oncologic (Cancer) History: Reports: None Dermatologic History: Reports: None - Infectious Disease History Infectious Disease History: Reports: None - Past Surgical History Head Surgeries/Procedures: Reports: None Female Surgical History: Reports: Dilitation & Evacuation Endocrine Surgical History: Reports: Other (See Below) Other Endocrine Surgeries/Procedures: Patient has an insulin pump, hx partial thyroidectomy Musculoskeletal Surgical History: Reports: Other (See Below) Other Musculoskeletal Surgeries/Procedures:: right knee surgery and right leg extraction Dermatological Surgical History: Reports: Other (See Below) - SUBSTANCE USE Smoking Status *Q: Former Smoker (quit smoking 3 years ago) Second Hand Smoke Exposure: No Days Per Week of Alcohol Use: 1 Number of Drinks Per Day: 1 Total Drinks Per Week: 1 Recreational Drug Use History: No - HOME MEDS Home Medications: Home Meds Subcutaneous Insulin Pump [Insulin Pump] 1 dose SQ ASDIRECTED 06/10/14 [History] - CURRENT (IN HOUSE) MEDS Current Meds: Current Medications Lactated Ringer's (Ringers, Lactated) 1,000 mls @ 125 mls/hr IV ASDIRECTED [facility] Last Admin: 04/13/17 07:17 Dose: 125 mls/hr Sodium Chloride (Saline Flush) 10 ml FLUSH ASDIRECTED PRN PRN Reason: Keep Vein Open Sodium Chloride (Saline Flush) 2.5 ml FLUSH ASDIRECTED PRN PRN Reason: Keep Vein Open
[2017-04-13] MEDS ORDERED: diphenhydrAMINE 50 MG/ML SDV ONE (07:24)
[2017-04-13] MEDS ORDERED: Lidocaine 2% 5 ML SDV ONE (07:24)
[2017-04-13] MEDS ORDERED: Ondansetron 4 MG/2 ML SDV ONE (07:24)
[2017-04-13] MEDS ORDERED: Methylergonovine 0.2 MG/1 ML Amp ONE (08:26)
[2017-04-13] MEDS ORDERED: Morphine 4 MG/ML Syringe IVPUSH PRN (08:30)
[2017-04-13] MEDS ORDERED: Ondansetron 4 MG/2 ML SDV IVPUSH PRN (08:30)
[2017-04-13] MEDS ORDERED: Ketorolac 30 MG/ML SDV IVPUSH ONE (08:30)
[2017-04-13] MEDS ORDERED: Promethazine 25 MG/ML SDV IM PRN (08:30)
[2017-04-13] MEDS ORDERED: Acetaminophen/oxyCODONE 325-5 MG Tab PO PRN ×2 (08:30)
[2017-04-13] MEDS ORDERED: Morphine 2 MG/ML Syringe IVPUSH PRN (08:30)
--- NOTE | 2017-04-13 08:35 | PCM.OPNOTE ---
- General Post-Op/Procedure Note Date of Surgery/Procedure: 04/13/17 Pre Op Diagnosis: Blighted ovum Post-Op Diagnosis: Same Anesthesia Technique: General Mask Primary Surgeon: Cesar Bergman EBL in mLs: 100 Complications: None Condition: Good
--- NOTE | 2017-04-13 08:36 | PCM.DCSUM1 ---
Discharge Summary - Discharge Data Discharge Date: 04/13/17 Discharge Disposition: Home, Self-Care 01 Condition: Good - Patient Instructions Diet: Usual Diet as Tolerated Activity: As Tolerated Driving: Do Not Drive Showering/Bathing: May Shower Notify Provider of: Fever, Increased Pain - Discharge Plan Home Medications: Home Meds Subcutaneous Insulin Pump [Insulin Pump] 1 dose SQ ASDIRECTED 06/10/14 [History] - General Info Date of Service: 04/13/17 Functional Status: Reports: Pain Controlled - Review of Systems General: Reports: No Symptoms HEENT: Reports: No Symptoms Pulmonary: Reports: No Symptoms Cardiovascular: Reports: No Symptoms Gastrointestinal: Reports: No Symptoms Genitourinary: Reports: No Symptoms Musculoskeletal: Reports: No Symptoms Skin: Reports: No Symptoms Neurological: Reports: No Symptoms Psychiatric: Reports: No Symptoms - Patient Data Vitals - Most Recent: Last Vital Signs Temp 36.4 C 04/13/17 06:30 Pulse 71 04/13/17 06:30 Resp 16 04/13/17 06:30 BP 94/61 04/13/17 06:30 Pulse Ox 98 04/13/17 06:30 Weight - Most Recent: 62.596 kg Lab Results - Last 24 hrs: Laboratory Results - last 24 hr 04/13/17 04/13/17 04/13/17 Range/Units 07:06 07:42 07:42 WBC 9.38 (4.0-11.0) K/uL RBC 4.76 (4.30-5.90) M/uL Hgb 13.8 (12.0-16.0) g/dL Hct 40.7 (36.0-46.0) % MCV 85.5 (80.0-98.0) fL MCH 29.0 (27.0-32.0) pg MCHC 33.9 (31.0-37.0) g/dL RDW Std Deviation 40.5 (28.0-62.0) fl RDW Coeff of Thomas 13 (11.0-15.0) % Plt Count 518 H (150-400) K/uL MPV 10.00 (7.40-12.00) fL Nucleated RBC % 0.0 /100WBC Nucleated RBCs # 0 K/uL Potassium 3.6 (3.5-5.1) mmol/L POC Glucose 163 H (60-110) mg/dL HCG, Qual (NEG) 04/13/17 Range/Units 07:42 WBC (4.0-11.0) K/uL RBC (4.30-5.90) M/uL Hgb (12.0-16.0) g/dL Hct (36.0-46.0) % MCV (80.0-98.0) fL MCH (27.0-32.0) pg MCHC (31.0-37.0) g/dL RDW Std Deviation (28.0-62.0) fl RDW Coeff of Thomas (11.0-15.0) % Plt Count (150-400) K/uL MPV (7.40-12.00) fL Nucleated RBC % /100WBC Nucleated RBCs # K/uL Potassium (3.5-5.1) mmol/L POC Glucose (60-110) mg/dL HCG, Qual POSITIVE H (NEG) Med Orders - Current: Current Medications Lactated Ringer's (Ringers, Lactated) 1,000 mls @ 125 mls/hr IV ASDIRECTED [place] Last Admin: 04/13/17 07:17 Dose: 125 mls/hr Ketorolac Tromethamine (Toradol) 30 mg IVPUSH ONETIME ONE Stop: 04/13/17 08:31 Ketorolac Tromethamine (Toradol) 30 mg IVPUSH Q6H PRN PRN Reason: Pain (severe 7-10) Stop: 04/18/17 08:31 Morphine Sulfate (Morphine) 2 mg IVPUSH Q2H PRN PRN Reason: Pain (severe 7-10) Morphine Sulfate (Morphine) 4 mg IVPUSH Q2H PRN PRN Reason: Pain (severe 7-10) Ondansetron HCl (Zofran) 4 mg IVPUSH Q6H PRN PRN Reason: Nausea/Vomiting Oxycodone/Acetaminophen (Percocet 325-5 Mg) 1 tab PO Q4H PRN PRN Reason: Pain (moderate 4-6) Oxycodone/Acetaminophen (Percocet 325-5 Mg) 2 tab PO Q4H PRN PRN Reason: Pain (moderate 4-6) Promethazine HCl (Phenergan) 25 mg IM Q6H PRN PRN Reason: Nausea/Vomiting Sodium Chloride (Saline Flush) 10 ml FLUSH ASDIRECTED PRN PRN Reason: Keep Vein Open Sodium Chloride (Saline Flush) 2.5 ml FLUSH ASDIRECTED PRN PRN Reason: Keep Vein Open Discontinued Medications Diphenhydramine HCl (Benadryl) Confirm Administered Dose 50 mg .ROUTE .STK-MED ONE Stop: 04/13/17 07:25 Fentanyl (Sublimaze) Confirm Administered Dose 100 mcg .ROUTE .STK-MED ONE Stop: 04/13/17 07:23 Lidocaine (Xylocaine-Mpf 2%) Confirm Administered Dose 5 ml .ROUTE .STK-MED ONE Stop: 04/13/17 07:25 Methylergonovine Maleate (Methergine) Confirm Administered Dose 0.2 mg .ROUTE .STK-MED ONE Stop: 04/13/17 08:27 Midazolam HCl (Versed 1 Mg/Ml) Confirm Administered Dose 2 mg .ROUTE .STK-MED ONE Stop: 04/13/17 07:23 Ondansetron HCl (Zofran) Confirm Administered Dose 4 mg .ROUTE .STK-MED ONE Stop: 04/13/17 07:25 Propofol (Diprivan 20 Ml) Confirm Administered Dose 200 mg .ROUTE .STK-MED ONE Stop: 04/13/17 07:23 - Exam General: Reports: Alert, Oriented HEENT: Reports: Pupils Equal, Pupils Reactive, EOMI, Mucous Membr. Moist/[place] Neck: Reports: Supple Lungs: Reports: Clear to Auscultation, Normal Respiratory Effort Cardiovascular: Reports: Regular Rate, Regular Rhythm GI/Abdominal Exam: Normal Bowel Sounds, Soft, Non-Tender, No Organomegaly, No Distention, No Abnormal Bruit, No Mass, Pelvis Stable (Female) Exam: Normal External Exam, Normal Speculum Exam, Normal Bimanual Exam Rectal (Female) Exam: Normal Exam, Normal Rectal Tone Back Exam: Reports: Normal Inspection, Full Range of Motion Extremities: Normal Inspection, Normal Range of Motion, Non-Tender, No Pedal Edema, Normal Capillary Refill Skin: Reports: Warm, Dry, Intact Wound/Incisions: Reports: Healing Well Neurological: Reports: No New Focal Deficit Psy/Mental Status: Reports: Alert, Normal Affect, Normal Mood *Q Meaningful Use (DIS) - VTE *Q VTE Criteria *Q: - Stroke *Q Stroke Criteria *Q: - AMI *Q AMI Criteria *Q:
--- NOTE | 2017-04-13 09:07 | PCM.POSTAN ---
POST ANESTHESIA ASSESSMENT - MENTAL STATUS Mental Status: Alert, Oriented - RESPIRATORY Respiratory Status: Respiratory Rate WNL, Airway Patent, O2 Saturation Stable - CARDIOVASCULAR CV Status: Pulse Rate WNL, Blood Pressure Stable - GASTROINTESTINAL GI Status: No Symptoms - PAIN Pain Score: 5 - POST OP HYDRATION Hydration Status: Adequate & Stable - OBSERVATIONS Free Text/Narrative:: no anesthesia problems
--- NOTE | 2017-04-13 09:51 | PCM48HPAN ---
Post Anesthesia Note - EVALUATION WITHIN 48HRS OF ANESTHETIC Vital Signs in Normal Range: Yes Patient Participated in Evaluation: Yes Respiratory Function Stable: Yes Airway Patent: Yes Cardiovascular Function Stable: Yes Hydration Status Stable: Yes Pain Control Satisfactory: Yes Nausea and Vomiting Control Satisfactory: Yes Mental Status Recovered: Yes Resp Rate: 17 - COMMENTS/OBSERVATIONS Free Text/Narrative:: no anesthesia problems
[2017-04-13 10:11] VITALS: BP 115/74
--- NOTE | 2017-04-13 10:35 | OR ---
SURGEON: Cesar Bergman MD DATE OF PROCEDURE: PREOPERATIVE DIAGNOSIS: Blighted ovum. POSTOPERATIVE DIAGNOSIS: Blighted ovum. OPERATION PERFORMED: Dilatation and evacuation. CURED MEATS SUPERVISOR: None. ANESTHESIA: LMA mask anesthesia. COMPLICATION: None. ESTIMATED BLOOD LOSS: 100 mL. INDICATION FOR SURGERY: This patient has blighted ovum and she is diabetic. She is admitted for elective dilatation and evacuation. PROCEDURE IN DETAIL: The patient was brought to the OR, properly identified, and after adequate level of anesthesia, patient placed in lithotomy position, prepped and draped in sterile fashion as usual. Then a #7 cannula was placed in the endometrial cavity and then using suction curettage, the endometrial cavity was evacuated completely from all blood and blood product. A small curette was placed in the endometrial cavity after that to make sure and check that all the products of conception was removed. Once that ascertained, I asked Anesthesia to give the patient 0.2 mg of Methergine IM and the procedure ended. Instrument and sponge count was correct. The patient tolerated the procedure well, went to recovery room in stable general condition. BEN / IRINEO /[id number]
[2017-04-13] MEDS ORDERED: Ketorolac 30 MG/ML SDV IVPUSH PRN (14:30)
== END 2017-04-13 09:40 | disposition home or self-care (01) ==
LOC: MW.SDS 06:41
PROVIDERS: ATTEND Obstetrics & Gynecology
DX: O02.0 Blighted ovum and nonhydatidiform mole (principal); F41.9 Anxiety disorder, unspecified; H93.90 Unspecified disorder of ear, unspecified ear; E10.9 Type 1 diabetes mellitus without complications; J45.909 Unspecified asthma, uncomplicated; F32.9 Major depressive disorder, single episode, unspecified; Z79.4 Long term (current) use of insulin; Z96.41 Presence of insulin pump (external) (internal); Z88.1 Allergy status to other antibiotic agents; Z79.899 Other long term (current) drug therapy; Z87.891 Personal history of nicotine dependence
CPT/HCPCS: 36415; 59820; 82962; 84132; 84703; 85027; 86850; 86900; 86901; A9270; J1200; J2210; J2250; J2405; J3010; J7120; 01965; 88305; J2704

== ENCOUNTER 2018-12-26 13:13 | Emergency (ER) | payer OTHER ==
--- NOTE | 2018-12-26 13:48 | EDM.PDOC ---
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 Patient reports that she saw Josie Christianson several weeks ago who confirmed and did an ultrasound at bedside confirming IUP. Patient reports that she woke up this morning with light vaginal bleeding and generalized abdominal discomfort. Denies any recent sexual activity. She is 15, para 0. LMP Oct 24, 2018. Review of systems: As per history of present illness and below otherwise all systems reviewed and negative. Past medical history: As per history of present illness and as reviewed below otherwise noncontributory. Surgical history: As per history of present illness and as reviewed below otherwise noncontributory. Social history: See social history for further information Family history: As per history of present illness and as reviewed below otherwise noncontributory. Physical exam: General: Well-developed and well-nourished 28-year-old female. Alert and oriented. Nontoxic appearing and in no acute distress. HEENT: Atraumatic, normocephalic, pupils equal and reactive bilaterally, negative for conjunctival pallor or scleral icterus, mucous membranes moist, TMs normal bilaterally, throat clear, neck supple, nontender, trachea midline. No drooling or trismus noted. No meningeal signs. No hot potato voice noted. Lungs: Clear to auscultation, breath sounds equal bilaterally, chest nontender. Heart: S1S2, regular rate and rhythm without overt murmur Abdomen: Soft, nondistended, nontender. Negative for masses or hepatosplenomegaly. Negative for costovertebral tenderness. Pelvis: Stable nontender. Genitourinary: Deferred. Rectal: Deferred. Skin: Intact, warm, dry. No lesions or rashes noted. Extremities: Atraumatic, moves all extremities per self without difficulty or deficits, negative for cords or calf pain. Neurovascular unremarkable. Neuro: Awake, alert, oriented. Cranial nerves II through XII unremarkable. Cerebellum unremarkable. Motor and sensory unremarkable throughout. Exam nonfocal. Notes: Lab work is unremarkable. Ultrasound shows no cardiac activity compatible with nonviable . Dr Bergman was consulted on this case. He states he would like for me to what her repeat quantitative hCG and the following 2 days. He states the patient can call his office to schedule an appointment and he will see her on Monday. All diagnostics in the conversation with Dr. Shook, was reviewed with the patient and mother at bedside. Supportive care measures were reviewed and discussed. Voices understanding and is agreeable to plan of care. Denies any further questions or concerns at this time. Diagnostics: CBC, CMP, UA, Quant HCG, AB/RH Therapeutics: None Prescription: None Impression: Threatened Plan: 1. Please start and/or continue to take your vitamin with folic acid once daily. 2. Pelvic rest until cleared by your OBGYN (no tampons, sex, etc...) 3. Tylenol as needed for pain management. 4. Follow up with her COMPACT ASSEMBLER in the next 1-2 days. Return to the ED as needed and as discussed. Definitive disposition and diagnosis as appropriate pending reevaluation and review of above. lower abdomen Pain Score (Numeric/FACES): 4 - Related Data Allergies Allergy/AdvReac Type Severity Reaction Status Date / Time amoxicillin Allergy Airway Verified 12/26/18 13:35 Tightness Home Meds: Home Meds Subcutaneous Insulin Pump [Insulin Pump] 1 dose SQ ASDIRECTED 06/10/14 [History] Ondansetron [Zofran ODT] 4 mg PO Q6H PRN 12/26/18 [History] Past Medical History HEENT History: Reports: None Cardiovascular History: Reports: None Respiratory History: Reports: Asthma Gastrointestinal History: Reports: None Genitourinary History: Reports: None COMPACT ASSEMBLER History: Reports: Spontaneous Neurological History: Reports: Migraines Psychiatric History: Reports: Anxiety, Depression Endocrine/Metabolic History: Reports: Diabetes, Type I Hematologic History: Reports: None Immunologic History: Reports: None Oncologic (Cancer) History: Reports: None Dermatologic History: Reports: None - Infectious Disease History Infectious Disease History: Reports: Chicken Pox - Past Surgical History Head Surgeries/Procedures: Reports: None Female Surgical History: Reports: Dilitation & Evacuation Endocrine Surgical History: Reports: Other (See Below) Other Endocrine Surgeries/Procedures: Patient has an insulin pump, hx partial thyroidectomy Musculoskeletal Surgical History: Reports: Other (See Below) Other Musculoskeletal Surgeries/Procedures:: right knee surgery and right leg extraction Dermatological Surgical History: Reports: Other (See Below) Social & Family History - Family History Family Medical History: Noncontributory - Tobacco Use Smoking Status *Q: Never Smoker - Caffeine Use Caffeine Use: Reports: Coffee, Soda Other Caffeine Use: 1-2 cups per day - Recreational Drug Use Recreational Drug Use: No ED ROS GENERAL - Review of Systems Review Of Systems: Comprehensive ROS is negative, except as noted in HPI. ED EXAM - Physical Exam Exam: See Below (See dictation) Course - Vital Signs Last Recorded V/S: Last Vital Signs Temp 97.3 F 12/26/18 13:33 Pulse 81 12/26/18 13:33 Resp 18 12/26/18 13:33 BP 105/62 12/26/18 13:33 Pulse Ox 98 12/26/18 13:33 - Orders/Labs/Meds Orders: Active Orders 24 hr Category Date Time Status HCG QUANTITATIVE [CHEM] Stat Lab 12/26/18 14:15 Received Labs: Laboratory Tests 12/26/18 12/26/18 12/26/18 Range/Units 13:51 14:15 14:15 WBC 9.11 (4.0-11.0) K/uL RBC 4.61 (4.30-5.90) M/uL Hgb 13.0 (12.0-16.0) g/dL Hct 38.7 (36.0-46.0) % MCV 83.9 (80.0-98.0) fL MCH 28.2 (27.0-32.0) pg MCHC 33.6 (31.0-37.0) g/dL RDW Std Deviation 42.1 (28.0-62.0) fl RDW Coeff of Thomas 14 (11.0-15.0) % Plt Count 513 H (150-400) K/uL MPV 10.20 (7.40-12.00) fL Neut % (Auto) 50.9 (48.0-80.0) % Lymph % (Auto) 41.1 H (16.0-40.0) % [place] % (Auto) 6.8 (0.0-15.0) % Eos % (Auto) 1.0 (0.0-7.0) % Baso % (Auto) 0.2 (0.0-1.5) % Neut # (Auto) 4.6 (1.4-5.7) K/uL Lymph # (Auto) 3.7 H (0.6-2.4) K/uL [place] # (Auto) 0.6 (0.0-0.8) K/uL Eos # (Auto) 0.1 (0.0-0.7) K/uL Baso # (Auto) 0.0 (0.0-0.1) K/uL Nucleated RBC % 0.0 /100WBC Nucleated RBCs # 0 K/uL Urine Color YELLOW Urine Appearance HAZY Urine pH 6.0 (5.0-8.0) Ur Specific [place] 1.020 (1.001-1.035) Urine Protein NEGATIVE (NEGATIVE) mg/dL Urine Glucose (UA) >=1000 (NEGATIVE) mg/dL Urine Ketones NEGATIVE (NEGATIVE) mg/dL Urine Occult Blood NEGATIVE (NEGATIVE) Urine Nitrite NEGATIVE (NEGATIVE) Urine Bilirubin NEGATIVE (NEGATIVE) Urine Urobilinogen 0.2 (<2.0) EU/dL Ur Leukocyte Esterase NEGATIVE (NEGATIVE) Blood Type B POSITIVE Departure - Departure Time of Disposition: 15:14 Disposition: Home, Self-Care 01 Clinical Impression: Threatened - Discharge Information Instructions: Threatened Miscarriage, [place] Referrals: Josie Christianson CNM [Primary Care Provider] - Forms: ED Department Discharge Additional Instructions: The following information is given to patients seen in the emergency department who are being discharged to home. This information is to outline your options for follow-up care. We provide all patients seen in our emergency department with a follow-up referral. The need for follow-up, as well as the timing and circumstances, are variable depending upon the specifics of your emergency department visit. If you don't have a primary care physician on staff, we will provide you with a referral. We always advise you to contact your personal physician following an emergency department visit to inform them of the circumstance of the visit and for follow-up with them and/or the need for any referrals to a consulting specialist. The emergency department will also refer you to a specialist when appropriate. This referral assures that you have the opportunity for follow-up care with a specialist. All of these measure are taken in an effort to provide you with optimal care, which includes your follow-up. Under all circumstances we always encourage you to contact your private physician who remains a resource for coordinating your care. When calling for follow-up care, please make the office aware that this follow-up is from your recent emergency room visit. If for any reason you are refused follow-up, please contact the [facility] Emergency Department at and asked to speak to the emergency department charge nurse. [facility] [address] [place] [id number] [facility] [address] [place] [id number] 1. Please start and/or continue to take your vitamin with folic acid once daily. 2. Pelvic rest until cleared by your OBGYN (no tampons, sex, etc...) 3. Tylenol as needed for pain management. 4. Repeat quant HCGU ( hormone) on 12/28/2018 in outpatient lab. 5. Follow up with her COMPACT ASSEMBLER in the next few days. Call office today to set up your appointment. Return to the ED as needed and as discussed. - My Orders Last 24 Hours: My Active Orders 12/26/18 14:15 HCG QUANTITATIVE [CHEM] Stat - Assessment/Plan Last 24 Hours: My Active Orders 12/26/18 14:15 HCG QUANTITATIVE [CHEM] Stat
--- NOTE | 2018-12-26 15:11 | US ---
EXAM DATE: 12/26/18 PATIENT'S AGE: 28 First trimester obstetrical ultrasound: Multiple real-time images were obtained transverse vaginally. Comparison: No prior study for current . Dates: Current ultrasound: CHRIS 08/09/19, gestational age 7 weeks 5 days Single intrauterine gestation is seen. Amniotic fluid volume is normal. Embryo is seen. No subchorionic hemorrhage is appreciated. Measurements: [place]-rump length: 14.10 mm to 7 weeks 5 days Heart rate: No heart activity is seen. Impression: 1. Single intrauterine gestation. Dates as noted above. 2. No heart activity is seen compatible with nonviable . Diagnostic code #5 Report Signed by Proxy. [facility]
[2018-12-26] MEDS ORDERED: traMADol 50 MG Tab PO ONE (15:19)
[2018-12-26 15:44] VITALS: BP 113/74; PULSE 74
== END 2018-12-26 15:41 | disposition home or self-care (01) ==
LOC: MW.ED 13:13
DX: O20.0 Threatened abortion (principal); E10.9 Type 1 diabetes mellitus without complications; Z88.1 Allergy status to other antibiotic agents; Z3A.01 Less than 8 weeks gestation of pregnancy
CPT/HCPCS: 36415; 76801; 81003; 84702; 85025; 86900; 86901; 99284; A9270

== ENCOUNTER 2019-01-22 00:15 | Inpatient (IN) | payer OTHER ==
[2019-01-22] MEDS ORDERED: Sodium Chloride 0.9% 10 ML Syringe FLUSH PRN (00:26)
[2019-01-22] MEDS ORDERED: Sodium Chloride 0.9% 2.5 ML Syringe FLUSH PRN (00:26)
[2019-01-22] MEDS ORDERED: Insulin Regular, Human 100 Units/ML 10 ML Vial SUBCUT ONE (00:26)
[2019-01-22] MEDS ORDERED: Ondansetron 4 MG/2 ML SDV IVPUSH ONE (00:27)
[2019-01-22] MEDS ORDERED: Sodium Chloride 0.9% 1,000 ML IV ONE ×3 (00:27→03:00)
--- NOTE | 2019-01-22 00:30 | EDM.PDOC ---
ED HPI GENERAL MEDICAL PROBLEM - General Chief Complaint: Diabetic Complaint Stated Complaint: PT IS GOING THOU. DKA Time Seen by Provider: 01/22/19 00:25 - History of Present Illness INITIAL COMMENTS - FREE TEXT/NARRATIVE: HISTORY AND PHYSICAL: History of present illness: The patient is a 28-year-old female with a history of type 1 diabetes and uses an insulin pump and presents with several days of elevated blood sugar intermittent vomiting dehydration and concerned that she is in DKA. She tells me there is no specific trigger such as a fever cough runny nose or sore throat and says that she has not had any abdominal pain or urinary complaints. She says that she started feeling poorly and rundown and she does not give herself a sliding scale boluses with her insulin pump and did not give herself any extra insulin before coming here. She has had intermittent nausea and vomiting but no diarrhea and no urinary complaints. According to the computer the patient had a history of and on December 26 has had a 7-week 5-day- old live intrauterine but subsequently had demise/miscarriage and says she is no longer as she had a spontaneous and has not had any vaginal bleeding or issues. She says she has not followed up with Josie recently and the only other blood work I see is a serum quantitative hCG done on January 01 which was 7265. The patient is here with significant other who tells me that her last hemoglobin A1c was 10 and they are not sure when that was. She does not have a local family doctor here for follow-up care. Has had generalized weakness and overall malaise Review of systems: As per history of present illness and below otherwise all systems reviewed and negative. Past medical history: As per history of present illness and as reviewed below otherwise noncontributory. Surgical history: As per history of present illness and as reviewed below otherwise noncontributory. Social history: No reported history of drug or alcohol abuse. Family history: As per history of present illness and as reviewed below otherwise noncontributory. Physical exam: General: Well-developed well-nourished thin female who is very clinically dehydrated with very dry mucous membranes and a smell of profound acetone is in the room upon my entry. She looks somewhat toxic but is speaking clearly and she is visibly bitting increased respiratory rate but no work of breathing HEENT: Atraumatic, normocephalic, pupils reactive, negative for conjunctival pallor or scleral icterus, mucous membranes dry, throat clear of exudates and there is some oropharyngeal erythema but no cervical adenopathy, neck supple, nontender, trachea midline. Lungs: Clear to auscultation, breath sounds equal bilaterally, chest nontender. No wheezing or stridor Heart: S1S2, regular rhythm and slightly tachycardic rate on my evaluation to the 110's , negative for clicks, rubs, or JVD. Abdomen: Soft, nondistended, nontender. Sounds are hypoactive and there is completely no tenderness on palpation and no rebound or guarding and the abdomen is scaphoid negative for masses or hepatosplenomegaly. Negative for costovertebral tenderness. Pelvis: Stable nontender. Genitourinary: Deferred. Rectal: Deferred. Extremities: Atraumatic, negative for cords or calf pain. Neurovascular unremarkable. Neuro: Awake, alert, oriented. Cranial nerves II through XII unremarkable. Cerebellum unremarkable. Motor and sensory unremarkable throughout. Exam nonfocal. Skin: No overt rashes or lesions and turgor is diminished Diagnostics: EKG CBC CMP UA qual hCG ABG hemoglobin A1c serum ketones influenza quantitative HGC rapid strep Therapeutics: IV fluids Zofran insulin SQ, insulin drip; the hospitalist asked for an amp of sodium bicarb 0101: Patient was discussed with Dr. Weber; she is comfortable excepting this patient to the ICU and is aware of the ABG results and the other pending test results. She agrees with insulin drip like me to give her bicarb here in the ED According to the computer that the patient's last serum quantitative hCG was performed in January 01 and it was 7265. The patient tells me she has not seen Josie Christianson recently and did not have repeat blood work to make sure that the quant went down to 0. We will do a level here in the ED as her urine test is showing a positive for . I again discussed with the patient any other symptoms that may have triggered the WBC count or her DKA. She again denies upper respiratory symptoms and she does have a sore throat but thought it was just from vomiting but I will check a rapid strep. She has not had diarrhea urinary symptoms skin complaints earache sinus congestion or drainage or flulike symptoms. She has had no vaginal bleeding or discharge. 0228: Dr Fox was made fully aware of the patient's recent and her serum quantitative hCG of 24 today and as the quant is almost 0 and she is having no vaginal bleeding discharge and no abdominal complaints I will not pursue this further and the hospitalist agrees. At this point the patient has no upper respiratory symptoms so I will not do a chest x-ray and I did not do blood cultures and the hospitalist concurs that she does not feel that these are necessary at this time. She is aware of the WBC count and the differential. The patient overall has clinically improved significantly and is taking ice chips more talkative and interactive and has really no complaints at this point of any pain nausea or vomiting. We will transfer her to the ICU critical care time excluding procedures: 35min Impression: DKA Definitive disposition and diagnosis as appropriate pending reevaluation and review of above. - Related Data Allergies Allergy/AdvReac Type Severity Reaction Status Date / Time amoxicillin Allergy Airway Verified 01/22/19 00:24 Tightness Home Meds: Home Meds Subcutaneous Insulin Pump [Insulin Pump] 1 dose SQ ASDIRECTED 06/10/14 [History] Past Medical History HEENT History: Reports: None Cardiovascular History: Reports: None Respiratory History: Reports: Asthma Gastrointestinal History: Reports: None Genitourinary History: Reports: None PRIVATE ADVISOR History: Reports: Spontaneous Neurological History: Reports: Migraines Psychiatric History: Reports: Anxiety, Depression Endocrine/Metabolic History: Reports: Diabetes, Type I Hematologic History: Reports: None Immunologic History: Reports: None Oncologic (Cancer) History: Reports: None Dermatologic History: Reports: None - Infectious Disease History Infectious Disease History: Reports: Chicken Pox - Past Surgical History Head Surgeries/Procedures: Reports: None Female Surgical History: Reports: Dilitation & Evacuation Endocrine Surgical History: Reports: Other (See Below) Other Endocrine Surgeries/Procedures: Patient has an insulin pump, hx partial thyroidectomy Musculoskeletal Surgical History: Reports: Other (See Below) Other Musculoskeletal Surgeries/Procedures:: right knee surgery and right leg extraction Dermatological Surgical History: Reports: Other (See Below) Social & Family History - Family History Family Medical History: Noncontributory - Caffeine Use Caffeine Use: Reports: Coffee, Soda Other Caffeine Use: 1-2 cups per day ED ROS GENERAL - Review of Systems Review Of Systems: Comprehensive ROS is negative, except as noted in HPI. ED EXAM GENERAL NO PERIP PULSE - Physical Exam Exam: See Below (See dictation) Course - Vital Signs Last Recorded V/S: Last Vital Signs Temp 35.5 C 01/22/19 00:15 Pulse 101 H 01/22/19 02:07 Resp 20 01/22/19 02:07 BP 124/72 01/22/19 02:07 Pulse Ox 100 01/22/19 02:07 - Orders/Labs/Meds Orders: Active Orders 24 hr Category Date Time Status Patient Status [ADT] Stat ADT 01/22/19 01:16 Active Pulse Oximetry [RC] ASDIRECTED Care 01/22/19 00:25 Active COMPREHENSIVE METABOLIC PN,CMP [CHEM] Stat Lab 01/22/19 00:45 Results Insulin Regular, Human [NovoLIN R] 100 unit Med 01/22/19 01:00 Active Sodium Chloride 0.9% [Normal Saline] 99 ml IV TITRATE Sodium Chloride 0.9% [Saline Flush] Med 01/22/19 00:26 Active 10 ml FLUSH ASDIRECTED PRN Sodium Chloride 0.9% [Saline Flush] Med 01/22/19 00:26 Active 2.5 ml FLUSH ASDIRECTED PRN Saline Lock Insert [OM.PC] Stat Oth 01/22/19 00:25 Ordered Medication Orders Insulin Human Regular 100 unit (/ Sodium Chloride) 100 mls @ 5.89 mls/hr IV TITRATE NYASIA; Protocol Last Admin: 01/22/19 01:26 Dose: 0.1 unit/kg/hr, 5.89 mls/hr Sodium Chloride (Saline Flush) 10 ml FLUSH ASDIRECTED PRN PRN Reason: Keep Vein Open Sodium Chloride (Saline Flush) 2.5 ml FLUSH ASDIRECTED PRN PRN Reason: Keep Vein Open Labs: Laboratory Tests 01/22/19 01/22/19 01/22/19 Range/Units 00:45 00:45 00:45 WBC 20.37 H (4.0-11.0) K/uL RBC 4.86 (4.30-5.90) M/uL Hgb 13.9 (12.0-16.0) g/dL Hct 42.3 (36.0-46.0) % MCV 87.0 (80.0-98.0) fL MCH 28.6 (27.0-32.0) pg MCHC 32.9 (31.0-37.0) g/dL RDW Std Deviation 46.3 (28.0-62.0) fl RDW Coeff of Thomas 15 (11.0-15.0) % Plt Count 428 H (150-400) K/uL MPV 11.30 (7.40-12.00) fL Add Manual Diff YES Neutrophils % (Manual) 78 (48.0-80.0) % Band Neutrophils % 8 % Lymphocytes % (Manual) 14 L (16.0-40.0) % Absolute Seg Neuts 15.9 H (1.4-5.7) Band Neutrophils # 1.6 Lymphocytes # (Manual) 2.9 H (0.6-2.4) ABG pH (7.35-7.45) ABG pCO2 (35-45) mmHG ABG pO2 (75-100) mmHG ABG HCO3 (22-26) mEq/L ABG Total CO2 ABG Base Excess (-2.0-2.0) Sodium 132 L (136-145) mmol/L Potassium 5.3 H (3.5-5.1) mmol/L Chloride 94 L (98-107) mmol/L BUN 17 (7.0-18.0) mg/dL Creatinine 1.8 H (0.6-1.0) mg/dL Est Cr Clr Drug Dosing 39.18 mL/min Estimated GFR (MDRD) 34.0 ml/min Glucose 584 H* (74-106) mg/dL Hemoglobin A1c (4.5-6.2) % Calcium 9.3 (8.5-10.1) mg/dL Total Bilirubin 0.5 (0.2-1.0) mg/dL AST 32 (15-37) IU/L ALT 27 (14-63) IU/L Alkaline Phosphatase 168 H (46-116) U/L Total Protein 8.9 H (6.4-8.2) g/dL Albumin 4.5 (3.4-5.0) g/dL Globulin 4.4 H (2.6-4.0) g/dL Albumin/Globulin Ratio 1.0 (0.9-1.6) HCG, Qual (NEG) HCG, Quant mIU/mL Ketones SMALL H (NEG) 01/22/19 01/22/19 01/22/19 Range/Units 00:45 00:45 00:45 WBC (4.0-11.0) K/uL RBC (4.30-5.90) M/uL Hgb (12.0-16.0) g/dL Hct (36.0-46.0) % MCV (80.0-98.0) fL MCH (27.0-32.0) pg MCHC (31.0-37.0) g/dL RDW Std Deviation (28.0-62.0) fl RDW Coeff of Thomas (11.0-15.0) % Plt Count (150-400) K/uL MPV (7.40-12.00) fL Add Manual Diff Neutrophils % (Manual) (48.0-80.0) % Band Neutrophils % % Lymphocytes % (Manual) (16.0-40.0) % Absolute Seg Neuts (1.4-5.7) Band Neutrophils # Lymphocytes # (Manual) (0.6-2.4) ABG pH 6.952 L* (7.35-7.45) ABG pCO2 9 L (35-45) mmHG ABG pO2 139 H (75-100) mmHG ABG HCO3 2 L (22-26) mEq/L ABG Total CO2 2.0 ABG Base Excess -28.3 L (-2.0-2.0) Sodium (136-145) mmol/L Potassium (3.5-5.1) mmol/L Chloride (98-107) mmol/L BUN (7.0-18.0) mg/dL Creatinine (0.6-1.0) mg/dL Est Cr Clr Drug Dosing mL/min Estimated GFR (MDRD) ml/min Glucose (74-106) mg/dL Hemoglobin A1c 13.0 H (4.5-6.2) % Calcium (8.5-10.1) mg/dL Total Bilirubin (0.2-1.0) mg/dL AST (15-37) IU/L ALT (14-63) IU/L Alkaline Phosphatase (46-116) U/L Total Protein (6.4-8.2) g/dL Albumin (3.4-5.0) g/dL Globulin (2.6-4.0) g/dL Albumin/Globulin Ratio (0.9-1.6) HCG, Qual POSITIVE H (NEG) HCG, Quant mIU/mL Ketones (NEG) 01/22/19 Range/Units 00:45 WBC (4.0-11.0) K/uL RBC (4.30-5.90) M/uL Hgb (12.0-16.0) g/dL Hct (36.0-46.0) % MCV (80.0-98.0) fL MCH (27.0-32.0) pg MCHC (31.0-37.0) g/dL RDW Std Deviation (28.0-62.0) fl RDW Coeff of Thomas (11.0-15.0) % Plt Count (150-400) K/uL MPV (7.40-12.00) fL Add Manual Diff Neutrophils % (Manual) (48.0-80.0) % Band Neutrophils % % Lymphocytes % (Manual) (16.0-40.0) % Absolute Seg Neuts (1.4-5.7) Band Neutrophils # Lymphocytes # (Manual) (0.6-2.4) ABG pH (7.35-7.45) ABG pCO2 (35-45) mmHG ABG pO2 (75-100) mmHG ABG HCO3 (22-26) mEq/L ABG Total CO2 ABG Base Excess (-2.0-2.0) Sodium (136-145) mmol/L Potassium (3.5-5.1) mmol/L Chloride (98-107) mmol/L BUN (7.0-18.0) mg/dL Creatinine (0.6-1.0) mg/dL Est Cr Clr Drug Dosing mL/min Estimated GFR (MDRD) ml/min Glucose (74-106) mg/dL Hemoglobin A1c (4.5-6.2) % Calcium (8.5-10.1) mg/dL Total Bilirubin (0.2-1.0) mg/dL AST (15-37) IU/L ALT (14-63) IU/L Alkaline Phosphatase (46-116) U/L Total Protein (6.4-8.2) g/dL Albumin (3.4-5.0) g/dL Globulin (2.6-4.0) g/dL Albumin/Globulin Ratio (0.9-1.6) HCG, Qual (NEG) HCG, Quant 24.0 mIU/mL Ketones (NEG) Meds: Medications Generic Name Dose Route Start Last Admin Trade Name Holley PRN Reason Stop Dose Admin Insulin Human Regular 100 unit 100 mls @ 5.89 mls/hr 01/22/19 01:00 01/22/19 01:26 / Sodium Chloride IV 0.1 unit/kg/hr TITRATE NYASIA 5.89 mls/hr Administration Protocol 0.1 UNIT/KG/HR Sodium Chloride 10 ml 01/22/19 00:26 Saline Flush FLUSH ASDIRECTED PRN Keep Vein Open Sodium Chloride 2.5 ml 01/22/19 00:26 Saline Flush FLUSH ASDIRECTED PRN Keep Vein Open Discontinued Medications Generic Name Dose Route Start Last Admin Trade Name Holley PRN Reason Stop Dose Admin Sodium Chloride 1,000 mls @ 999 mls/hr 01/22/19 00:27 01/22/19 00:47 Normal Saline IV 01/22/19 01:27 999 mls/hr STAT ONE Administration Sodium Chloride 1,000 mls @ 999 mls/hr 01/22/19 01:29 01/22/19 02:11 Normal Saline IV 01/22/19 02:29 999 mls/hr STAT ONE Administration Insulin Human Regular 15 unit 01/22/19 00:26 01/22/19 00:44 Novolin R SUBCUT 01/22/19 00:27 15 units ONETIME ONE Administration Protocol Ondansetron HCl 4 mg 01/22/19 00:27 01/22/19 00:46 Zofran IVPUSH 01/22/19 00:28 4 mg ONETIME ONE Administration Sodium Bicarbonate 50 meq 01/22/19 01:06 01/22/19 01:14 Sodium Bicarbonate 8.4% IVPUSH 01/22/19 01:07 50 meq ONETIME ONE Administration Departure - Departure Time of Disposition: 02:36 Disposition: Admitted As Inpatient 68 Condition: Fair Clinical Impression: DKA, type 1 Qualifiers: Diabetes mellitus complication detail: without coma Qualified Code(s): E10.10 - Type 1 diabetes mellitus with ketoacidosis without coma - Discharge Information Sepsis Event Note - Evaluation Sepsis Screening Result: No Definite Risk - Focused Exam Vital Signs: Vital Signs Temp Pulse Resp BP Pulse Ox Pulse Ox 01/22/19 00:56 114 H 30 H 127/79 99 99 01/22/19 00:15 35.5 C 115 H 24 H 133/80 100 Date Exam was Performed: 01/22/19 Time Exam was Performed: 02:35 - My Orders Last 24 Hours: My Active Orders 01/22/19 00:25 Pulse Oximetry [RC] ASDIRECTED Saline Lock Insert [OM.PC] Stat 01/22/19 00:26 Sodium Chloride 0.9% [Saline Flush] 10 ml FLUSH ASDIRECTED PRN Sodium Chloride 0.9% [Saline Flush] 2.5 ml FLUSH ASDIRECTED PRN 01/22/19 00:45 COMPREHENSIVE METABOLIC PN,CMP [CHEM] Stat 01/22/19 01:00 Insulin Regular, Human [NovoLIN R] 100 unit Sodium Chloride 0.9% [Normal Saline] 99 ml IV TITRATE 01/22/19 01:16 Patient Status [ADT] Stat - Assessment/Plan Last 24 Hours: My Active Orders 01/22/19 00:25 Pulse Oximetry [RC] ASDIRECTED Saline Lock Insert [OM.PC] Stat 01/22/19 00:26 Sodium Chloride 0.9% [Saline Flush] 10 ml FLUSH ASDIRECTED PRN Sodium Chloride 0.9% [Saline Flush] 2.5 ml FLUSH ASDIRECTED PRN 01/22/19 00:45 COMPREHENSIVE METABOLIC PN,CMP [CHEM] Stat 01/22/19 01:00 Insulin Regular, Human [NovoLIN R] 100 unit Sodium Chloride 0.9% [Normal Saline] 99 ml IV TITRATE 01/22/19 01:16 Patient Status [ADT] Stat
[2019-01-22] MEDS ORDERED: Sodium Bicarbonate 8.4% 50 MEQ/50 ML Syringe IVPUSH ONE ×2 (01:06→16:32)
[2019-01-22 01:24] LABS: BLOOD UREA NITROGEN,BUN 17 mg/dL (7.0-18.0); CHLORIDE,CL 94 mmol/L (98-107); POTASSIUM,K 5.3 mmol/L (3.5-5.1); SODIUM,NA 132 mmol/L (136-145)
[2019-01-22 01:45] LABS: GLUCOSE RANDOM 584 mg/dL (74-106)
[2019-01-22 02:08] VITALS: PULSE 101
[2019-01-22] MEDS ORDERED: Sodium Chloride 0.9% 1,000 ML IV SCH (02:45)
--- NOTE | 2019-01-22 03:09 | PN ---
[facility] Physician - Brief Progress [id number]/17/2019 02:06[facility] [place], [place] - MWN (GABRIELA) - MWN BERNABE JOHNSONVenessaDate of Service 01/22/2019 02:06HPI/Events of Note eICU Brief Admission [id number] presenting in DKARecieved IVF and Insulin gtt started in Veronica Ca meraHR 106 BP 127/73 RR 21 Sats 100%Awake and alertNADWCC 20Na 132Potassium 5.3Chloride 94Bicarb <5gl uc 584HCG quant 24Influenza A&B negRecommendInsulin gttIVF, switch to d5 1/2NS when blood glucose <25 0Replete electrolytes as neededNPO until switching to SQ insulinPRN reglan for nausea and emesisWill need DVT prophylaxis Lovenox or heparinInterventions Covbd-Lqjl-Hdzm disturbance - evaluation and man agement, Hyperglycemia - active titration of insulin therapy
--- NOTE | 2019-01-22 03:55 | PCM.HP.2 ---
H&P History of Present Illness - General Date of Service: 01/22/19 (Lte note entry due to patient care) Admit Problem/Dx: Admission Diagnosis/Problem Admission Diagnosis/Problem Ketoacidosis in patient with type 1 diabetes mellitus Source of Information: Patient History Limitations: Reports: No Limitations - History of Present Illness Initial Comments - Free Text/Narative: Patient is a 28 y/o Female with PMH of DM, on insulin pump at home prsenets with intermittent vomiting dehydration. Patient states her pump may not be functioning properly and she has been trying to call the company to help her with it but so far hasn't been able to fix it. Denied fever cough runny nose or sore throat and says that she has not had any abdominal pain or urinary complaints. The patient is a 28-year-old female with a history of type 1 diabetes and uses an insulin pump and presents with several days of elevated blood sugar intermittent vomiting dehydration and concerned that she is in DKA. She tells me there is She says that she started feeling poorly and rundown and she does not give herself a sliding scale boluses with her insulin pump and did not give herself any extra insulin before coming here. She has had intermittent nausea and vomiting but no diarrhea and no urinary complaints. Patient suffered from a spontaneous few weeks back and hasnt followed up with her ob-research programmer since Jan 01 when her HCG was around 7000. Patient was found to be in DKA in the ER as hence started on Insulin Gtt and IVF fluids and transferred to ICU. I requested ER to administer Bicarb as well. Patient is currently in ICU for further care. Onset of Symptoms: Reports: Gradual Duration of Symptoms: Reports: Day(s):, Getting Worse Improves with: Reports: None Worsens with: Reports: None Associated Symptoms: Reports: Loss of Appetite, Malaise, Nausea/Vomiting, Shortness of Breath, Weakness. 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 ATTORNEY History: Reports: Spontaneous Neurological History: Reports: Migraines Psychiatric History: Reports: Anxiety, Depression Endocrine/Metabolic History: Reports: Diabetes, Type I, Hyperthyroidism Insulin Pump Model and Family Physician: [employer] Type of Insulin Used in Pump: Humulog Date Insulin Bottle Opened: 01/15/2019 When was Your Last Insulin Site/Set Changed: 3 days Do You Have Enough Pump Supplies for Your Hospital Stay: Yes Who Manages Your Pump: Patient (Self) Other/Name of Person Who Manages Your Pump: Benton Gonzalez Basal Rate (Units/hr): 2 Units of Insulin Per Gram of Carbohydrates:: 15 Do You Give Correction Boluses or Sliding Scale: Yes Patient/Family Able to Supply Written Copy of Sliding Scale: Yes Patient Able to Demonstrate: Current Pump Settings (Basal Rates), Describe How to Change Infusion Set & Insertion Set, Home Meter Results within 15% of Hospital Meter Results, How to Get to Bolus Settings & Administer if Needed, Suspend Pump Hematologic History: Reports: None Immunologic History: Reports: None Oncologic (Cancer) History: Reports: None Dermatologic History: Reports: None - Infectious Disease History Infectious Disease History: Reports: Chicken Pox - Past Surgical History Head Surgeries/Procedures: Reports: None Other Respiratory Surgeries/Procedures: not taking inhaler for some time now Female Surgical History: Reports: Dilitation & Evacuation Endocrine Surgical History: Reports: Other (See Below) Other Endocrine Surgeries/Procedures: Patient has an insulin pump, hx partial thyroidectomy Musculoskeletal Surgical History: Reports: Other (See Below) Other Musculoskeletal Surgeries/Procedures:: right knee surgery and right leg extraction Dermatological Surgical History: Reports: Other (See Below) Social & Family History - Family History Family Medical History: Noncontributory - Tobacco Use Smoking Status *Q: Never Smoker - Caffeine Use Caffeine Use: Reports: Coffee, Soda Other Caffeine Use: 1-2 cups per day - Recreational Drug Use Recreational Drug Use: No H&P Review of Systems - Review of Systems: Review Of Systems: See Below General: Reports: Chills, Malaise, Weakness, Fatigue, Decreased Appetite. Denies: Fever, Night Sweats, Weight Loss HEENT: Denies: Dysphasia, Ear Pain, Headaches, Sore Throat Pulmonary: Reports: Shortness of Breath. Denies: Wheezing, Pleuritic Chest Pain , Cough, Sputum, Hemoptysis Cardiovascular: Reports: Dyspnea on Exertion. Denies: Chest Pain, Palpitations , Orthopnea, Syncope Gastrointestinal: Reports: Decreased Appetite. Denies: Abdominal Pain, Anorexia , Black Stool, Bloody Stool, Constipation, Diarrhea, Flatus, Hematemesis Genitourinary: Denies: Dysuria, Frequency, Burning Musculoskeletal: Reports: Back Pain. Denies: Neck Pain, Shoulder Pain Skin: Denies: Cyanosis, Mottled Exam - Exam Exam: See Below - Vital Signs Vital Signs: Last Vital Signs Temp 35.5 C 01/22/19 00:15 Pulse 101 H 01/22/19 02:07 Resp 20 01/22/19 02:07 BP 124/72 01/22/19 02:07 Pulse Ox 100 01/22/19 02:07 Weight: 58.967 kg - Exam General: Alert, Oriented HEENT: Nares Patent, Other (dry mucosa). No: Mucosa Moist & Kress, Rhinitis, Scleral Icterus Neck: No: Supple Lungs: Clear to Auscultation, Normal Respiratory Effort Cardiovascular: Regular Rhythm, Tachycardia Extremities: Normal Inspection, Normal Range of Motion, Non-Tender Peripheral Pulses: 3+: Dorsalis Pedis (L), Dorsalis Pedis (R) Skin: Cool Neuro Extensive - Mental Status: Alert, Oriented x3 Neuro Extensive - Motor, Sensory, Reflexes: CN II-XII Intact - Patient Data Lab Results Last 24 hrs: Laboratory Results - last 24 hr 01/22/19 01/22/19 01/22/19 Range/Units 00:45 00:45 00:45 WBC 20.37 H (4.0-11.0) K/uL RBC 4.86 (4.30-5.90) M/uL Hgb 13.9 (12.0-16.0) g/dL Hct 42.3 (36.0-46.0) % MCV 87.0 (80.0-98.0) fL MCH 28.6 (27.0-32.0) pg MCHC 32.9 (31.0-37.0) g/dL RDW Std Deviation 46.3 (28.0-62.0) fl RDW Coeff of Thomas 15 (11.0-15.0) % Plt Count 428 H (150-400) K/uL MPV 11.30 (7.40-12.00) fL Add Manual Diff YES Neutrophils % (Manual) 78 (48.0-80.0) % Band Neutrophils % 8 % Lymphocytes % (Manual) 14 L (16.0-40.0) % Absolute Seg Neuts 15.9 H (1.4-5.7) Band Neutrophils # 1.6 Lymphocytes # (Manual) 2.9 H (0.6-2.4) ABG pH (7.35-7.45) ABG pCO2 (35-45) mmHG ABG pO2 (75-100) mmHG ABG HCO3 (22-26) mEq/L ABG Total CO2 ABG Base Excess (-2.0-2.0) Sodium 132 L (136-145) mmol/L Potassium 5.3 H (3.5-5.1) mmol/L Chloride 94 L (98-107) mmol/L Carbon Dioxide 2.1 L (21.0-32.0) mmol/L BUN 17 (7.0-18.0) mg/dL Creatinine 1.8 H (0.6-1.0) mg/dL Est Cr Clr Drug Dosing 39.18 mL/min Estimated GFR (MDRD) 34.0 ml/min Glucose 584 H* (74-106) mg/dL POC Glucose (60-110) mg/dL Hemoglobin A1c (4.5-6.2) % Calcium 9.3 (8.5-10.1) mg/dL Total Bilirubin 0.5 (0.2-1.0) mg/dL AST 32 (15-37) IU/L ALT 27 (14-63) IU/L Alkaline Phosphatase 168 H (46-116) U/L Total Protein 8.9 H (6.4-8.2) g/dL Albumin 4.5 (3.4-5.0) g/dL Globulin 4.4 H (2.6-4.0) g/dL Albumin/Globulin Ratio 1.0 (0.9-1.6) HCG, Qual (NEG) HCG, Quant mIU/mL Urine Color Urine Appearance Urine pH (5.0-8.0) Ur Specific Decker (1.001-1.035) Urine Protein (NEGATIVE) mg/dL Urine Glucose (UA) (NEGATIVE) mg/dL Urine Ketones (NEGATIVE) mg/dL Urine Occult Blood (NEGATIVE) Urine Nitrite (NEGATIVE) Urine Bilirubin (NEGATIVE) Urine Urobilinogen (<2.0) EU/dL Ur Leukocyte Esterase (NEGATIVE) Urine RBC (0-2/HPF) Urine WBC (0-5/HPF) Ur Epithelial Cells (NONE-FEW) Urine Bacteria (NEGATIVE) Urine Mucus (NONE-MOD) Ketones SMALL H (NEG) 01/22/19 01/22/19 01/22/19 Range/Units 00:45 00:45 00:45 WBC (4.0-11.0) K/uL RBC (4.30-5.90) M/uL Hgb (12.0-16.0) g/dL Hct (36.0-46.0) % MCV (80.0-98.0) fL MCH (27.0-32.0) pg MCHC (31.0-37.0) g/dL RDW Std Deviation (28.0-62.0) fl RDW Coeff of Thomas (11.0-15.0) % Plt Count (150-400) K/uL MPV (7.40-12.00) fL Add Manual Diff Neutrophils % (Manual) (48.0-80.0) % Band Neutrophils % % Lymphocytes % (Manual) (16.0-40.0) % Absolute Seg Neuts (1.4-5.7) Band Neutrophils # Lymphocytes # (Manual) (0.6-2.4) ABG pH 6.952 L* (7.35-7.45) ABG pCO2 9 L (35-45) mmHG ABG pO2 139 H (75-100) mmHG ABG HCO3 2 L (22-26) mEq/L ABG Total CO2 2.0 ABG Base Excess -28.3 L (-2.0-2.0) Sodium (136-145) mmol/L Potassium (3.5-5.1) mmol/L Chloride (98-107) mmol/L Carbon Dioxide (21.0-32.0) mmol/L BUN (7.0-18.0) mg/dL Creatinine (0.6-1.0) mg/dL Est Cr Clr Drug Dosing mL/min Estimated GFR (MDRD) ml/min Glucose (74-106) mg/dL POC Glucose (60-110) mg/dL Hemoglobin A1c 13.0 H (4.5-6.2) % Calcium (8.5-10.1) mg/dL Total Bilirubin (0.2-1.0) mg/dL AST (15-37) IU/L ALT (14-63) IU/L Alkaline Phosphatase (46-116) U/L Total Protein (6.4-8.2) g/dL Albumin (3.4-5.0) g/dL Globulin (2.6-4.0) g/dL Albumin/Globulin Ratio (0.9-1.6) HCG, Qual POSITIVE H (NEG) HCG, Quant mIU/mL Urine Color Urine Appearance Urine pH (5.0-8.0) Ur Specific Decker (1.001-1.035) Urine Protein (NEGATIVE) mg/dL Urine Glucose (UA) (NEGATIVE) mg/dL Urine Ketones (NEGATIVE) mg/dL Urine Occult Blood (NEGATIVE) Urine Nitrite (NEGATIVE) Urine Bilirubin (NEGATIVE) Urine Urobilinogen (<2.0) EU/dL Ur Leukocyte Esterase (NEGATIVE) Urine RBC (0-2/HPF) Urine WBC (0-5/HPF) Ur Epithelial Cells (NONE-FEW) Urine Bacteria (NEGATIVE) Urine Mucus (NONE-MOD) Ketones (NEG) 01/22/19 01/22/19 01/22/19 Range/Units 00:45 01:18 01:51 WBC (4.0-11.0) K/uL RBC (4.30-5.90) M/uL Hgb (12.0-16.0) g/dL Hct (36.0-46.0) % MCV (80.0-98.0) fL MCH (27.0-32.0) pg MCHC (31.0-37.0) g/dL RDW Std Deviation (28.0-62.0) fl RDW Coeff of Thomas (11.0-15.0) % Plt Count (150-400) K/uL MPV (7.40-12.00) fL Add Manual Diff Neutrophils % (Manual) (48.0-80.0) % Band Neutrophils % % Lymphocytes % (Manual) (16.0-40.0) % Absolute Seg Neuts (1.4-5.7) Band Neutrophils # Lymphocytes # (Manual) (0.6-2.4) ABG pH (7.35-7.45) ABG pCO2 (35-45) mmHG ABG pO2 (75-100) mmHG ABG HCO3 (22-26) mEq/L ABG Total CO2 ABG Base Excess (-2.0-2.0) Sodium (136-145) mmol/L Potassium (3.5-5.1) mmol/L Chloride (98-107) mmol/L Carbon Dioxide (21.0-32.0) mmol/L BUN (7.0-18.0) mg/dL Creatinine (0.6-1.0) mg/dL Est Cr Clr Drug Dosing mL/min Estimated GFR (MDRD) ml/min Glucose (74-106) mg/dL POC Glucose > 500 H > 500 H (60-110) mg/dL Hemoglobin A1c (4.5-6.2) % Calcium (8.5-10.1) mg/dL Total Bilirubin (0.2-1.0) mg/dL AST (15-37) IU/L ALT (14-63) IU/L Alkaline Phosphatase (46-116) U/L Total Protein (6.4-8.2) g/dL Albumin (3.4-5.0) g/dL Globulin (2.6-4.0) g/dL Albumin/Globulin Ratio (0.9-1.6) HCG, Qual (NEG) HCG, Quant 24.0 mIU/mL Urine Color Urine Appearance Urine pH (5.0-8.0) Ur Specific Decker (1.001-1.035) Urine Protein (NEGATIVE) mg/dL Urine Glucose (UA) (NEGATIVE) mg/dL Urine Ketones (NEGATIVE) mg/dL Urine Occult Blood (NEGATIVE) Urine Nitrite (NEGATIVE) Urine Bilirubin (NEGATIVE) Urine Urobilinogen (<2.0) EU/dL Ur Leukocyte Esterase (NEGATIVE) Urine RBC (0-2/HPF) Urine WBC (0-5/HPF) Ur Epithelial Cells (NONE-FEW) Urine Bacteria (NEGATIVE) Urine Mucus (NONE-MOD) Ketones (NEG) 01/22/19 01/22/19 Range/Units 01:57 02:58 WBC (4.0-11.0) K/uL RBC (4.30-5.90) M/uL Hgb (12.0-16.0) g/dL Hct (36.0-46.0) % MCV (80.0-98.0) fL MCH (27.0-32.0) pg MCHC (31.0-37.0) g/dL RDW Std Deviation (28.0-62.0) fl RDW Coeff of Thomas (11.0-15.0) % Plt Count (150-400) K/uL MPV (7.40-12.00) fL Add Manual Diff Neutrophils % (Manual) (48.0-80.0) % Band Neutrophils % % Lymphocytes % (Manual) (16.0-40.0) % Absolute Seg Neuts (1.4-5.7) Band Neutrophils # Lymphocytes # (Manual) (0.6-2.4) ABG pH (7.35-7.45) ABG pCO2 (35-45) mmHG ABG pO2 (75-100) mmHG ABG HCO3 (22-26) mEq/L ABG Total CO2 ABG Base Excess (-2.0-2.0) Sodium (136-145) mmol/L Potassium (3.5-5.1) mmol/L Chloride (98-107) mmol/L Carbon Dioxide (21.0-32.0) mmol/L BUN (7.0-18.0) mg/dL Creatinine (0.6-1.0) mg/dL Est Cr Clr Drug Dosing mL/min Estimated GFR (MDRD) ml/min Glucose (74-106) mg/dL POC Glucose 415 H (60-110) mg/dL Hemoglobin A1c (4.5-6.2) % Calcium (8.5-10.1) mg/dL Total Bilirubin (0.2-1.0) mg/dL AST (15-37) IU/L ALT (14-63) IU/L Alkaline Phosphatase (46-116) U/L Total Protein (6.4-8.2) g/dL Albumin (3.4-5.0) g/dL Globulin (2.6-4.0) g/dL Albumin/Globulin Ratio (0.9-1.6) HCG, Qual (NEG) HCG, Quant mIU/mL Urine Color YELLOW Urine Appearance CLEAR Urine pH 5.5 (5.0-8.0) Ur Specific Decker 1.025 (1.001-1.035) Urine Protein TRACE H (NEGATIVE) mg/dL Urine Glucose (UA) >=1000 (NEGATIVE) mg/dL Urine Ketones >=80 (NEGATIVE) mg/dL Urine Occult Blood SMALL H (NEGATIVE) Urine Nitrite NEGATIVE (NEGATIVE) Urine Bilirubin NEGATIVE (NEGATIVE) Urine Urobilinogen 0.2 (<2.0) EU/dL Ur Leukocyte Esterase NEGATIVE (NEGATIVE) Urine RBC NONE SEEN (0-2/HPF) Urine WBC 0-2 (0-5/HPF) Ur Epithelial Cells FEW (NONE-FEW) Urine Bacteria 1+ H (NEGATIVE) Urine Mucus LIGHT (NONE-MOD) Ketones (NEG) Result Diagrams: 01/22/19 00:45 01/22/19 00:45 Gabriel Results Last 24 hrs: Microbiology 01/22/19 02:00 Group A Streptococcus Rapid Screen - Final Throat NEGATIVE STREP A SCREEN REFERENCE RANGE: NEGATIVE 01/22/19 00:50 Influenza Type A Antigen Screen - Final Nasopharyngeal Swab NEGATIVE INFLUENZA A VIRUS AG REFERENCE RANGE: NEGATIVE Influenza Type B Antigen Screen - Final NEGATIVE INFLUENZA B VIRUS AG REFERENCE RANGE: NEGATIVE Sepsis Event Note - Evaluation Sepsis Screening Result: No Definite Risk - Focused Exam Vital Signs: Vital Signs Temp Pulse Resp BP Pulse Ox Pulse Ox 01/22/19 02:07 101 H 20 124/72 100 01/22/19 00:56 114 H 30 H 127/79 99 99 01/22/19 00:15 35.5 C 115 H 24 H 133/80 100 Date Exam was Performed: 01/22/19 Time Exam was Performed: 04:19 - Problem List (1) DKA (diabetic ketoacidoses) SNOMED Code(s): 692485711, 500279680 ICD Code: E11.10 - TYPE 2 DIABETES MELLITUS WITH KETOACIDOSIS WITHOUT COMA Status: Acute Current Visit: Yes (2) H/O miscarriage, not currently SNOMED Code(s): 187864932 ICD Code: Z87.59 - PERSONAL HISTORY OF COMP OF PREG, CHLDBRTH AND THE PUERP Status: Acute Current Visit: Yes Problem List Initiated/Reviewed/Updated: Yes Orders Last 24hrs: Active Orders 24 hr Category Date Time Status Patient Status [ADT] Stat ADT 01/22/19 01:16 Active Blood Glucose Check, Bedside [RC] Q1H Care 01/22/19 03:00 Active Pulse Oximetry [RC] ASDIRECTED Care 01/22/19 00:25 Active Nothing Per Oral Diet [DIET] Diet 01/22/19 Breakfast Active BASIC METABOLIC PANEL,BMP [CHEM] Q4 Lab 01/22/19 03:45 Ordered BASIC METABOLIC PANEL,BMP [CHEM] Q4 Lab 01/22/19 07:45 Ordered BASIC METABOLIC PANEL,BMP [CHEM] Q4 Lab 01/22/19 11:45 Ordered BASIC METABOLIC PANEL,BMP [CHEM] Q4 Lab 01/22/19 15:45 Ordered BASIC METABOLIC PANEL,BMP [CHEM] Q4 Lab 01/22/19 19:45 Ordered BASIC METABOLIC PANEL,BMP [CHEM] Q4 Lab 01/22/19 23:45 Ordered CBC WITH AUTO DIFF [HEME] DAILY Lab 01/22/19 05:00 Ordered CBC WITH AUTO DIFF [HEME] DAILY Lab 01/23/19 05:00 Ordered CBC WITH AUTO DIFF [HEME] DAILY Lab 01/24/19 05:00 Ordered CULTURE STREP A CONFIRMATION [] Stat Lab 01/22/19 02:00 Results CULTURE URINE [] Stat Lab 01/22/19 01:57 Received MAGNESIUM [CHEM] Q4 Lab 01/22/19 03:45 Ordered MAGNESIUM [CHEM] Q4 Lab 01/22/19 07:45 Ordered MAGNESIUM [CHEM] Q4 Lab 01/22/19 11:45 Ordered MAGNESIUM [CHEM] Q4 Lab 01/22/19 15:45 Ordered MAGNESIUM [CHEM] Q4 Lab 01/22/19 19:45 Ordered MAGNESIUM [CHEM] Q4 Lab 01/22/19 23:45 Ordered PHOSPHORUS [CHEM] Q4 Lab 01/22/19 03:45 Ordered PHOSPHORUS [CHEM] Q4 Lab 01/22/19 07:45 Ordered PHOSPHORUS [CHEM] Q4 Lab 01/22/19 11:45 Ordered PHOSPHORUS [CHEM] Q4 Lab 01/22/19 15:45 Ordered PHOSPHORUS [CHEM] Q4 Lab 01/22/19 19:45 Ordered PHOSPHORUS [CHEM] Q4 Lab 01/22/19 23:45 Ordered STREP SCRN A RAPID W CULT CONF [RM] Stat Lab 01/22/19 02:00 Results Insulin Regular, Human [NovoLIN R] 100 unit Med 01/22/19 02:45 Active Sodium Chloride 0.9% [Normal Saline] 99 ml IV TITRATE Ondansetron [Zofran] Med 01/22/19 02:33 Active 4 mg IVPUSH Q4H PRN Sodium Chloride 0.9% [Normal Saline] 1,000 ml Med 01/22/19 03:00 Active IV .Bolus Sodium Chloride 0.9% [Normal Saline] 1,000 ml Med 01/22/19 02:45 Active IV ASDIRECTED Sodium Chloride 0.9% [Saline Flush] Med 01/22/19 00:26 Active 10 ml FLUSH ASDIRECTED PRN Sodium Chloride 0.9% [Saline Flush] Med 01/22/19 00:26 Active 2.5 ml FLUSH ASDIRECTED PRN Saline Lock Insert [OM.PC] Stat Oth 01/22/19 00:25 Ordered Medication Orders Sodium Chloride (Normal Saline) 1,000 mls @ 125 mls/hr IV ASDIRECTED NYASIA Sodium Chloride (Normal Saline) 1,000 mls @ 999 mls/hr IV .Bolus ONE Stop: 01/22/19 04:00 Last Admin: 01/22/19 03:33 Dose: 999 mls/hr Insulin Human Regular 100 unit (/ Sodium Chloride) 100 mls @ 6 mls/hr IV TITRATE NYASIA; Protocol Last Admin: 01/22/19 03:36 Dose: 6 unit/hr, 6 mls/hr Ondansetron HCl (Zofran) 4 mg IVPUSH Q4H PRN PRN Reason: Nausea/Vomiting Sodium Chloride (Saline Flush) 10 ml FLUSH ASDIRECTED PRN PRN Reason: Keep Vein Open Sodium Chloride (Saline Flush) 2.5 ml FLUSH ASDIRECTED PRN PRN Reason: Keep Vein Open Assessment/Plan Comment:: 28 y/o G with PMH of DM on insulin pump comes in with c/o generalized weakness, N/V, SOB Recent h/o , no vaginal discharge, bleeding per patient, BHCG levels noted Was found to be in DKA, states her pump has been malfunctioning Leucocytosis, likely reactive, no source of infection Was started on insulin gtt and received 2L in ER Started on 1 additional Lt in ICU, and insulin Gtt was continued cont NS @ 125 cc/hr, switch to dextrose/NS once BS drops to 200s Monitor and replete electrolytes, check BMP Q4 Check lipid Profile, HbA1c noted DVT ppx with SCD
[2019-01-22] MEDS ORDERED: Dextrose 5%-0.9% NaCl 1,000 ML IV SCH (04:15)
[2019-01-22 04:17] LABS: BLOOD UREA NITROGEN,BUN 16 mg/dL (7.0-18.0); CHLORIDE,CL 102 mmol/L (98-107); GLUCOSE RANDOM 308 mg/dL (74-106); POTASSIUM,K 3.7 mmol/L (3.5-5.1); SODIUM,NA 137 mmol/L (136-145)
[2019-01-22] MEDS ORDERED: Potassium Chloride Riders 40 MEQ in Premix Bag 1 BAG IV ONE (04:31)
[2019-01-22] MEDS: Dextrose 5%-0.45% NaCl 1,000 ML IV SCH ×3 (04:49→20:58)
[2019-01-22] MEDS ORDERED: Morphine 2 MG/ML Syringe IVPUSH PRN (06:37)
[2019-01-22 07:11] LABS: CARBON DIOXIDE,CO2 <5.0 mmol/L (21.0-32.0)
[2019-01-22 07:11] LABS: CARBON DIOXIDE,CO2 <5.0 mmol/L (21.0-32.0)
[2019-01-22 08:43] LABS: CARBON DIOXIDE,CO2 8.3 mmol/L (21.0-32.0); POTASSIUM,K 4.1 mmol/L (3.5-5.1)
[2019-01-22] MEDS ORDERED: Magnesium Sulfate 2 GM, Potassium Phosphates 30 MMOLE in Sodium Chloride 0.9% 1,000 ML IV ONE (09:50)
[2019-01-22] MEDS: Ondansetron 4 MG/2 ML SDV IVPUSH PRN ×2 (10:58→15:59)
--- NOTE | 2019-01-22 11:14 | US ---
EXAM DATE: 01/22/19 PATIENT'S AGE: 28 Pelvic ultrasound: Multiple real-time images were obtained transvaginally. Comparison: No prior pelvic ultrasound. Findings: Uterus is anteverted. No myometrial abnormality is identified. Minimal amount of debris is seen within the endometrial cavity. Follicles are seen within both ovaries. No free fluid is seen. Measurements: Uterus: Endometrial thickness 1.5 cm, uterine length 7.4 cm, AP height 3.5 cm, transverse width 4.9 cm Right ovary: 2.8 x 2.8 x 1.4 cm Left ovary: 2.2 x 1.4 x 1.8 cm Impression: 1. Small amount of debris within the endometrial cavity most likely representing minimal retained products of conception. 2. No additional abnormality is seen on pelvic ultrasound exam. Diagnostic code #3 This report was dictated in [place] Standard Time Report Signed by Proxy. RAUL
[2019-01-22 12:34] LABS: POTASSIUM,K 4.3 mmol/L (3.5-5.1)
[2019-01-22] MEDS: Clindamycin Phosphate in D5W 300 MG in Premix Bag 1 BAG IV SCH ×4 (12:42→18:34)
[2019-01-22 16:48] LABS: CARBON DIOXIDE,CO2 11.6 mmol/L (21.0-32.0); POTASSIUM,K 3.9 mmol/L (3.5-5.1)
[2019-01-22 20:37] LABS: BLOOD UREA NITROGEN,BUN 7 mg/dL (7.0-18.0); CARBON DIOXIDE,CO2 12.1 mmol/L (21.0-32.0); CHLORIDE,CL 105 mmol/L (98-107); GLUCOSE RANDOM 175 mg/dL (74-106); POTASSIUM,K 3.5 mmol/L (3.5-5.1); SODIUM,NA 138 mmol/L (136-145)
[2019-01-22] MEDS ORDERED: Potassium Phosphates 15 MMOLE in Sodium Chloride 0.9% 250 ML IV ONE (21:18)
--- NOTE | 2019-01-22 21:21 | PN ---
[facility] Physician - Brief Progress [id number]/17/2019 21:19[facility] sulema Ewa, REY - ERIN [facility] - BERNABE NESBITTDate of Service 01/22/2019 21:19HPI/Events of Note Phos lowCorrect lytes PRNInterventions Intermediate-Electrolyte abnormality - evaluation and management
[2019-01-23 00:24] LABS: BLOOD UREA NITROGEN,BUN 6 mg/dL (7.0-18.0); CARBON DIOXIDE,CO2 15.2 mmol/L (21.0-32.0); CHLORIDE,CL 104 mmol/L (98-107); GLUCOSE RANDOM 215 mg/dL (74-106); POTASSIUM,K 3.3 mmol/L (3.5-5.1); SODIUM,NA 137 mmol/L (136-145)
[2019-01-23] MEDS: Clindamycin Phosphate in D5W 300 MG in Premix Bag 1 BAG IV SCH ×6 (00:29→13:24)
[2019-01-23] MEDS: Dextrose 5%-0.45% NaCl 1,000 ML IV SCH (05:04)
[2019-01-23 06:33] LABS: BLOOD UREA NITROGEN,BUN 5 mg/dL (7.0-18.0); CARBON DIOXIDE,CO2 18.9 mmol/L (21.0-32.0); CHLORIDE,CL 106 mmol/L (98-107); GLUCOSE RANDOM 172 mg/dL (74-106); POTASSIUM,K 2.9 mmol/L (3.5-5.1); SODIUM,NA 140 mmol/L (136-145)
[2019-01-23] MEDS ORDERED: Potassium Phosphates 45 MMOLE in Sodium Chloride 0.9% 500 ML IV ONE ×2 (07:20→07:38)
[2019-01-23] MEDS ORDERED: Potassium Chloride 10 MEQ Tab.ER PO ONE (07:42)
--- NOTE | 2019-01-23 09:00 | PN ---
[facility] Physician - Brief Progress [id number]/18/2019 08:46[facility] E[place] Michelle, [place] - [facility] - MWN BERNABE JOHNSONDate of Service 01/23/2019 08:46HPI/Events of Note eICU Progress [id number] admitted for DKA. History obtained primarily from review of EMR.Camera exam: Laying in bed. Vitals monitor reviewed, apart from mild tachycardia with heart rate in the low 100s, vital signs are unremarkable. Insulin drip appears to be paused.Vitals: reviewedLabs: reviewed , anion gap is down to 15 with bicarbonate of around 19. Glucose appears to be better controlled wit h latest value of 161. Radiology: reviewedMeds: reviewedeICU Impression and Recommendations:Diabetic ketoacidosis, improvingAnion gap now 15, insulin drip paused for hypokalemiaSuggest aggressive potass ium replacement. Given concomitant hypocalcemia, consider supplementation of IV calcium in order to aid with hypokalemia.Patient to remain strict NPO (except meds)Agree with continued intravenous fluid sBMP, Mg, Phos q4h for assessment of progression.With improvement of anion gap, patient is approachin g the time at which we can transition to subcutaneous insulin. This can be accomplished in a number of ways. Once we have reached such a point (when bicarbonate has normalized, patient is no longer na useous, and glucose remains under control, with normal anion gap) we can turn back on patient's insul in pump and discontinue IV insulin. If there is any concern that the insulin pump is providing inade quate insulin therapy, or maybe malfunctioning, I suggest we begin with initiation of half of home do se of total insulin delivered by pump as a long acting dose with sliding scale, or initiation of a to ethel of 0.5 to 0.8 units/kg/day of both bolus and basal insulin with subsequent titration.DVT and GI p rophylaxis as appropriate.We are available to assist in further clarification, or implementation of a ny of the above recommendations if desired by primary service.Thank you for allowing us to participat e in the care of this patient.The above note transcribed via dictation software. Please excuse any er rors.Interventions Major-Other: DKA
[2019-01-23] MEDS ORDERED: Insulin Detemir 100 Units/ML 3 ML Pen SUBCUT ONE (09:52)
[2019-01-23] MEDS ORDERED: Calcium Gluconate 10% 1 GM/10 ML SDV IVPUSH ONE (09:55)
[2019-01-23] MEDS ORDERED: Insulin Aspart 100 Units/ML 3 ML Pen SUBCUT SCH (11:30)
[2019-01-23 15:23] LABS: BLOOD UREA NITROGEN,BUN 4 mg/dL (7.0-18.0); CARBON DIOXIDE,CO2 20.2 mmol/L (21.0-32.0); CHLORIDE,CL 109 mmol/L (98-107); GLUCOSE RANDOM 113 mg/dL (74-106); POTASSIUM,K 3.7 mmol/L (3.5-5.1); SODIUM,NA 140 mmol/L (136-145)
--- NOTE | 2019-01-23 16:41 | PCM.DCSUM1 ---
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 non- compliance presenting 2 days prior with worsening abdominal pain vomiting and nausea with decreased appetite; patient was found to have a blood glucose of 400 at home and seen in ED. patient was initiated on DKA protocol with IV infusion of insulin and transferred to the ICU. Patient also has a history of recent miscarriage 4 weeks prior; was positive at 24 quantitative/repeat transvaginal ultrasound showed minimal endometrial debris; INSTRUMENT PERSON was informed; states that this is normal and continue management. Concern for possible source of infection; patient was initiated on clindamycin; with resolution of her leukocytosis. Patient has been afebrile since admission. Day of discharge anion gap had closed with resolution of her hyperglycemia. diabetes educator was consulted: Restarted patient's glucose pump and was given a 5-week supply insulin/sensors. Prescription for backup insulin regimen has also been sent to pharmacy including NovoLog and Levemir. Education regarding carb counting and glucose control was stressed to patient. Patient endorsed feeling better with resolution of her symptoms and endorsing wanting to go home. Patient was sent home with additional 5 days of clindamycin and advised to follow-up PCP within 1 week. Discharge condition: Stable Disposition: Home Discharge medications: See attached chart: Clindamycin/NovoLog/Levemir insulin pump Discharge instructions: Patient advised to follow-up PCP within 1 to 2 weeks. Advised to be vigilant with carb counting and blood glucose control. Advised to continue using pump if our pump fails backup insulin has been given to patient via prescription. Patient understood plan all questions answered. Follow-up: PCP and certified lactation educator. - Discharge Data Discharge Date: 01/23/19 Discharge Disposition: Home, Self-Care 01 Condition: Stable - Referral to Home Health Primary Care Physician: PCP None - Patient Summary/Data Consults: Consultations 01/23/19 09:51 Consult to Diabetic Nurse Specialist [CONS] Routine - Patient Instructions Diet: Diabetic Diet Driving: May Drive Today Showering/Bathing: May Shower Notify Provider of: Fever, Increased Pain, Nausea and/or Vomiting Other/Special Instructions: Patient is advised to follow up with her PCP within 7-10 days. Advised to use her Diabetic pump as instructed; if for whatever reasons there is some problems with your pump; a back up insulin regimen prescription has been sent to your pharmacy. Please follow up with your certified lactation educator in the near future to discuss diet and diabetic supplies. Do not wait too long if you are having problems controlling your blood glucose as this may result in having to come back to the hospital. Complete your antibiotics medications; a prescription has been sent to your pharmacy. - Discharge Plan *PRESCRIPTION DRUG MONITORING PROGRAM REVIEWED*: No *COPY OF PRESCRIPTION DRUG MONITORING REPORT IN PATIENT EVELYNE: No Prescriptions/Med Rec: Clindamycin HCl 300 mg PO TID 5 Days #15 capsule Insulin Aspart [NovoLOG] 0 unit SUBCUT WITHMEALSANDBED #1 box Insulin Detemir [Levemir Flextouch] 100 unit SQ DAILY #1 pen Home Medications: Home Meds Subcutaneous Insulin Pump [Insulin Pump] 1 dose SQ ASDIRECTED 06/10/14 [History] Clindamycin HCl 300 mg PO TID 5 Days #15 capsule 01/23/19 [Rx] Insulin Aspart [NovoLOG] 0 unit SUBCUT WITHMEALSANDBED #1 box 01/23/19 [Rx] Insulin Detemir [Levemir Flextouch] 100 unit SQ DAILY #1 pen 01/23/19 [Rx] Patient Handouts: Diabetic Ketoacidosis Referrals: [facility] [Ordering Only Provider] - David Villanueva MD [Resident] - 02/04/19 2:00 pm - Discharge Summary/Plan Comment DC Time >30 min.: No - Patient Data Vitals - Most Recent: Last Vital Signs Temp 97.7 F 01/23/19 12:00 Pulse 101 H 01/22/19 02:07 Resp 22 H 01/23/19 12:00 BP 134/87 01/23/19 12:00 Pulse Ox 96 01/23/19 12:00 Weight - Most Recent: 124 lb I&O - Last 24 hours: Intake & Output 01/23/19 01/23/19 01/23/19 06:59 14:59 22:59 Intake Total 2773 Output Total 2000 Balance 773 Lab Results - Last 24 hrs: Laboratory Results - last 24 hr 01/22/19 01/22/19 01/22/19 Range/Units 02:32 15:52 16:28 WBC (4.0-11.0) K/uL RBC (4.30-5.90) M/uL Hgb (12.0-16.0) g/dL Hct (36.0-46.0) % MCV (80.0-98.0) fL MCH (27.0-32.0) pg MCHC (31.0-37.0) g/dL RDW Std Deviation (28.0-62.0) fl RDW Coeff of Thomas (11.0-15.0) % Plt Count (150-400) K/uL MPV (7.40-12.00) fL Neut % (Auto) (48.0-80.0) % Lymph % (Auto) (16.0-40.0) % [place] % (Auto) (0.0-15.0) % Eos % (Auto) (0.0-7.0) % Baso % (Auto) (0.0-1.5) % Neut # (Auto) (1.4-5.7) K/uL Lymph # (Auto) (0.6-2.4) K/uL [place] # (Auto) (0.0-0.8) K/uL Eos # (Auto) (0.0-0.7) K/uL Baso # (Auto) (0.0-0.1) K/uL Nucleated RBC % /100WBC Nucleated RBCs # K/uL Sodium 138 (136-145) mmol/L Potassium 3.9 (3.5-5.1) mmol/L Chloride 104 (98-107) mmol/L Carbon Dioxide 11.6 L (21.0-32.0) mmol/L BUN 9 (7.0-18.0) mg/dL Creatinine 1.2 H (0.6-1.0) mg/dL Est Cr Clr Drug Dosing 58.77 mL/min Estimated GFR (MDRD) 54.3 ml/min Glucose 196 H (74-106) mg/dL POC Glucose 448 H 177 H (60-110) mg/dL Calcium 8.1 L (8.5-10.1) mg/dL Phosphorus 2.6 (2.6-4.7) mg/dL Magnesium 2.3 (1.8-2.4) mg/dL HCG, Quant mIU/mL 01/22/19 01/22/19 01/22/19 Range/Units 17:01 18:19 19:01 WBC (4.0-11.0) K/uL RBC (4.30-5.90) M/uL Hgb (12.0-16.0) g/dL Hct (36.0-46.0) % MCV (80.0-98.0) fL MCH (27.0-32.0) pg MCHC (31.0-37.0) g/dL RDW Std Deviation (28.0-62.0) fl RDW Coeff of Thomas (11.0-15.0) % Plt Count (150-400) K/uL MPV (7.40-12.00) fL Neut % (Auto) (48.0-80.0) % Lymph % (Auto) (16.0-40.0) % [place] % (Auto) (0.0-15.0) % Eos % (Auto) (0.0-7.0) % Baso % (Auto) (0.0-1.5) % Neut # (Auto) (1.4-5.7) K/uL Lymph # (Auto) (0.6-2.4) K/uL [place] # (Auto) (0.0-0.8) K/uL Eos # (Auto) (0.0-0.7) K/uL Baso # (Auto) (0.0-0.1) K/uL Nucleated RBC % /100WBC Nucleated RBCs # K/uL Sodium (136-145) mmol/L Potassium (3.5-5.1) mmol/L Chloride (98-107) mmol/L Carbon Dioxide (21.0-32.0) mmol/L BUN (7.0-18.0) mg/dL Creatinine (0.6-1.0) mg/dL Est Cr Clr Drug Dosing mL/min Estimated GFR (MDRD) ml/min Glucose (74-106) mg/dL POC Glucose 178 H 177 H 178 H (60-110) mg/dL Calcium (8.5-10.1) mg/dL Phosphorus (2.6-4.7) mg/dL Magnesium (1.8-2.4) mg/dL HCG, Quant mIU/mL 01/22/19 01/22/19 01/22/19 Range/Units 19:51 19:52 21:02 WBC (4.0-11.0) K/uL RBC (4.30-5.90) M/uL Hgb (12.0-16.0) g/dL Hct (36.0-46.0) % MCV (80.0-98.0) fL MCH (27.0-32.0) pg MCHC (31.0-37.0) g/dL RDW Std Deviation (28.0-62.0) fl RDW Coeff of Thomas (11.0-15.0) % Plt Count (150-400) K/uL MPV (7.40-12.00) fL Neut % (Auto) (48.0-80.0) % Lymph % (Auto) (16.0-40.0) % [place] % (Auto) (0.0-15.0) % Eos % (Auto) (0.0-7.0) % Baso % (Auto) (0.0-1.5) % Neut # (Auto) (1.4-5.7) K/uL Lymph # (Auto) (0.6-2.4) K/uL [place] # (Auto) (0.0-0.8) K/uL Eos # (Auto) (0.0-0.7) K/uL Baso # (Auto) (0.0-0.1) K/uL Nucleated RBC % /100WBC Nucleated RBCs # K/uL Sodium 138 (136-145) mmol/L Potassium 3.5 (3.5-5.1) mmol/L Chloride 105 (98-107) mmol/L Carbon Dioxide 12.1 L (21.0-32.0) mmol/L BUN 7 (7.0-18.0) mg/dL Creatinine 1.1 H (0.6-1.0) mg/dL Est Cr Clr Drug Dosing 64.11 mL/min Estimated GFR (MDRD) > 60.0 ml/min Glucose 175 H (74-106) mg/dL POC Glucose 164 H 187 H (60-110) mg/dL Calcium 7.7 L (8.5-10.1) mg/dL Phosphorus 2.2 L (2.6-4.7) mg/dL Magnesium 2.2 (1.8-2.4) mg/dL HCG, Quant mIU/mL 01/22/19 01/22/19 01/22/19 Range/Units 21:57 23:02 23:45 WBC (4.0-11.0) K/uL RBC (4.30-5.90) M/uL Hgb (12.0-16.0) g/dL Hct (36.0-46.0) % MCV (80.0-98.0) fL MCH (27.0-32.0) pg MCHC (31.0-37.0) g/dL RDW Std Deviation (28.0-62.0) fl RDW Coeff of Thomas (11.0-15.0) % Plt Count (150-400) K/uL MPV (7.40-12.00) fL Neut % (Auto) (48.0-80.0) % Lymph % (Auto) (16.0-40.0) % [place] % (Auto) (0.0-15.0) % Eos % (Auto) (0.0-7.0) % Baso % (Auto) (0.0-1.5) % Neut # (Auto) (1.4-5.7) K/uL Lymph # (Auto) (0.6-2.4) K/uL [place] # (Auto) (0.0-0.8) K/uL Eos # (Auto) (0.0-0.7) K/uL Baso # (Auto) (0.0-0.1) K/uL Nucleated RBC % /100WBC Nucleated RBCs # K/uL Sodium 137 (136-145) mmol/L Potassium 3.3 L (3.5-5.1) mmol/L Chloride 104 (98-107) mmol/L Carbon Dioxide 15.2 L (21.0-32.0) mmol/L BUN 6 L (7.0-18.0) mg/dL Creatinine 1.1 H (0.6-1.0) mg/dL Est Cr Clr Drug Dosing 64.11 mL/min Estimated GFR (MDRD) > 60.0 ml/min Glucose 215 H (74-106) mg/dL POC Glucose 165 H 168 H (60-110) mg/dL Calcium 7.7 L (8.5-10.1) mg/dL Phosphorus 2.3 L (2.6-4.7) mg/dL Magnesium 2.1 (1.8-2.4) mg/dL HCG, Quant mIU/mL 01/22/19 01/23/19 01/23/19 Range/Units 23:45 01:02 02:10 WBC (4.0-11.0) K/uL RBC (4.30-5.90) M/uL Hgb (12.0-16.0) g/dL Hct (36.0-46.0) % MCV (80.0-98.0) fL MCH (27.0-32.0) pg MCHC (31.0-37.0) g/dL RDW Std Deviation (28.0-62.0) fl RDW Coeff of Thomas (11.0-15.0) % Plt Count (150-400) K/uL MPV (7.40-12.00) fL Neut % (Auto) (48.0-80.0) % Lymph % (Auto) (16.0-40.0) % [place] % (Auto) (0.0-15.0) % Eos % (Auto) (0.0-7.0) % Baso % (Auto) (0.0-1.5) % Neut # (Auto) (1.4-5.7) K/uL Lymph # (Auto) (0.6-2.4) K/uL [place] # (Auto) (0.0-0.8) K/uL Eos # (Auto) (0.0-0.7) K/uL Baso # (Auto) (0.0-0.1) K/uL Nucleated RBC % /100WBC Nucleated RBCs # K/uL Sodium (136-145) mmol/L Potassium (3.5-5.1) mmol/L Chloride (98-107) mmol/L Carbon Dioxide (21.0-32.0) mmol/L BUN (7.0-18.0) mg/dL Creatinine (0.6-1.0) mg/dL Est Cr Clr Drug Dosing mL/min Estimated GFR (MDRD) ml/min Glucose (74-106) mg/dL POC Glucose 185 H 217 H 178 H (60-110) mg/dL Calcium (8.5-10.1) mg/dL Phosphorus (2.6-4.7) mg/dL Magnesium (1.8-2.4) mg/dL HCG, Quant mIU/mL 01/23/19 01/23/19 01/23/19 Range/Units 03:13 04:00 05:03 WBC (4.0-11.0) K/uL RBC (4.30-5.90) M/uL Hgb (12.0-16.0) g/dL Hct (36.0-46.0) % MCV (80.0-98.0) fL MCH (27.0-32.0) pg MCHC (31.0-37.0) g/dL RDW Std Deviation (28.0-62.0) fl RDW Coeff of Thomas (11.0-15.0) % Plt Count (150-400) K/uL MPV (7.40-12.00) fL Neut % (Auto) (48.0-80.0) % Lymph % (Auto) (16.0-40.0) % [place] % (Auto) (0.0-15.0) % Eos % (Auto) (0.0-7.0) % Baso % (Auto) (0.0-1.5) % Neut # (Auto) (1.4-5.7) K/uL Lymph # (Auto) (0.6-2.4) K/uL [place] # (Auto) (0.0-0.8) K/uL Eos # (Auto) (0.0-0.7) K/uL Baso # (Auto) (0.0-0.1) K/uL Nucleated RBC % /100WBC Nucleated RBCs # K/uL Sodium (136-145) mmol/L Potassium (3.5-5.1) mmol/L Chloride (98-107) mmol/L Carbon Dioxide (21.0-32.0) mmol/L BUN (7.0-18.0) mg/dL Creatinine (0.6-1.0) mg/dL Est Cr Clr Drug Dosing mL/min Estimated GFR (MDRD) ml/min Glucose (74-106) mg/dL POC Glucose 159 H 158 H 158 H (60-110) mg/dL Calcium (8.5-10.1) mg/dL Phosphorus (2.6-4.7) mg/dL Magnesium (1.8-2.4) mg/dL HCG, Quant mIU/mL 01/23/19 01/23/19 01/23/19 Range/Units 05:46 05:46 05:46 WBC 12.63 H (4.0-11.0) K/uL RBC 4.15 L (4.30-5.90) M/uL Hgb 11.7 L (12.0-16.0) g/dL Hct 34.0 L (36.0-46.0) % MCV 81.9 (80.0-98.0) fL MCH 28.2 (27.0-32.0) pg MCHC 34.4 (31.0-37.0) g/dL RDW Std Deviation 43.9 (28.0-62.0) fl RDW Coeff of Thomas 15 (11.0-15.0) % Plt Count 374 (150-400) K/uL MPV 10.20 (7.40-12.00) fL Neut % (Auto) 66.7 (48.0-80.0) % Lymph % (Auto) 27.9 (16.0-40.0) % [place] % (Auto) 5.1 (0.0-15.0) % Eos % (Auto) 0.2 (0.0-7.0) % Baso % (Auto) 0.1 (0.0-1.5) % Neut # (Auto) 8.4 H (1.4-5.7) K/uL Lymph # (Auto) 3.5 H (0.6-2.4) K/uL [place] # (Auto) 0.6 (0.0-0.8) K/uL Eos # (Auto) 0.0 (0.0-0.7) K/uL Baso # (Auto) 0.0 (0.0-0.1) K/uL Nucleated RBC % 0.0 /100WBC Nucleated RBCs # 0 K/uL Sodium 140 (136-145) mmol/L Potassium 2.9 L (3.5-5.1) mmol/L Chloride 106 (98-107) mmol/L Carbon Dioxide 18.9 L (21.0-32.0) mmol/L BUN 5 L (7.0-18.0) mg/dL Creatinine 1.0 (0.6-1.0) mg/dL Est Cr Clr Drug Dosing 70.52 mL/min Estimated GFR (MDRD) > 60.0 ml/min Glucose 172 H (74-106) mg/dL POC Glucose 171 H (60-110) mg/dL Calcium 8.0 L (8.5-10.1) mg/dL Phosphorus 1.9 L (2.6-4.7) mg/dL Magnesium 2.1 (1.8-2.4) mg/dL HCG, Quant mIU/mL 01/23/19 01/23/19 01/23/19 Range/Units 05:46 06:55 08:02 WBC (4.0-11.0) K/uL RBC (4.30-5.90) M/uL Hgb (12.0-16.0) g/dL Hct (36.0-46.0) % MCV (80.0-98.0) fL MCH (27.0-32.0) pg MCHC (31.0-37.0) g/dL RDW Std Deviation (28.0-62.0) fl RDW Coeff of Thomas (11.0-15.0) % Plt Count (150-400) K/uL MPV (7.40-12.00) fL Neut % (Auto) (48.0-80.0) % Lymph % (Auto) (16.0-40.0) % [place] % (Auto) (0.0-15.0) % Eos % (Auto) (0.0-7.0) % Baso % (Auto) (0.0-1.5) % Neut # (Auto) (1.4-5.7) K/uL Lymph # (Auto) (0.6-2.4) K/uL [place] # (Auto) (0.0-0.8) K/uL Eos # (Auto) (0.0-0.7) K/uL Baso # (Auto) (0.0-0.1) K/uL Nucleated RBC % /100WBC Nucleated RBCs # K/uL Sodium (136-145) mmol/L Potassium (3.5-5.1) mmol/L Chloride (98-107) mmol/L Carbon Dioxide (21.0-32.0) mmol/L BUN (7.0-18.0) mg/dL Creatinine (0.6-1.0) mg/dL Est Cr Clr Drug Dosing mL/min Estimated GFR (MDRD) ml/min Glucose (74-106) mg/dL POC Glucose 161 H 137 H (60-110) mg/dL Calcium (8.5-10.1) mg/dL Phosphorus (2.6-4.7) mg/dL Magnesium (1.8-2.4) mg/dL HCG, Quant 17.0 mIU/mL 01/23/19 01/23/19 01/23/19 Range/Units 09:06 09:59 11:38 WBC (4.0-11.0) K/uL RBC (4.30-5.90) M/uL Hgb (12.0-16.0) g/dL Hct (36.0-46.0) % MCV (80.0-98.0) fL MCH (27.0-32.0) pg MCHC (31.0-37.0) g/dL RDW Std Deviation (28.0-62.0) fl RDW Coeff of Thomas (11.0-15.0) % Plt Count (150-400) K/uL MPV (7.40-12.00) fL Neut % (Auto) (48.0-80.0) % Lymph % (Auto) (16.0-40.0) % [place] % (Auto) (0.0-15.0) % Eos % (Auto) (0.0-7.0) % Baso % (Auto) (0.0-1.5) % Neut # (Auto) (1.4-5.7) K/uL Lymph # (Auto) (0.6-2.4) K/uL [place] # (Auto) (0.0-0.8) K/uL Eos # (Auto) (0.0-0.7) K/uL Baso # (Auto) (0.0-0.1) K/uL Nucleated RBC % /100WBC Nucleated RBCs # K/uL Sodium (136-145) mmol/L Potassium (3.5-5.1) mmol/L Chloride (98-107) mmol/L Carbon Dioxide (21.0-32.0) mmol/L BUN (7.0-18.0) mg/dL Creatinine (0.6-1.0) mg/dL Est Cr Clr Drug Dosing mL/min Estimated GFR (MDRD) ml/min Glucose (74-106) mg/dL POC Glucose 200 H 174 H 186 H (60-110) mg/dL Calcium (8.5-10.1) mg/dL Phosphorus (2.6-4.7) mg/dL Magnesium (1.8-2.4) mg/dL HCG, Quant mIU/mL 01/23/19 01/23/19 01/23/19 Range/Units 12:50 14:51 14:52 WBC (4.0-11.0) K/uL RBC (4.30-5.90) M/uL Hgb (12.0-16.0) g/dL Hct (36.0-46.0) % MCV (80.0-98.0) fL MCH (27.0-32.0) pg MCHC (31.0-37.0) g/dL RDW Std Deviation (28.0-62.0) fl RDW Coeff of Thomas (11.0-15.0) % Plt Count (150-400) K/uL MPV (7.40-12.00) fL Neut % (Auto) (48.0-80.0) % Lymph % (Auto) (16.0-40.0) % [place] % (Auto) (0.0-15.0) % Eos % (Auto) (0.0-7.0) % Baso % (Auto) (0.0-1.5) % Neut # (Auto) (1.4-5.7) K/uL Lymph # (Auto) (0.6-2.4) K/uL [place] # (Auto) (0.0-0.8) K/uL Eos # (Auto) (0.0-0.7) K/uL Baso # (Auto) (0.0-0.1) K/uL Nucleated RBC % /100WBC Nucleated RBCs # K/uL Sodium 140 (136-145) mmol/L Potassium 3.7 (3.5-5.1) mmol/L Chloride 109 H (98-107) mmol/L Carbon Dioxide 20.2 L (21.0-32.0) mmol/L BUN 4 L (7.0-18.0) mg/dL Creatinine 0.8 (0.6-1.0) mg/dL Est Cr Clr Drug Dosing 88.15 mL/min Estimated GFR (MDRD) > 60.0 ml/min Glucose 113 H (74-106) mg/dL POC Glucose 125 H 115 H (60-110) mg/dL Calcium 8.3 L (8.5-10.1) mg/dL Phosphorus (2.6-4.7) mg/dL Magnesium (1.8-2.4) mg/dL HCG, Quant mIU/mL 01/23/ Range/Units 16:28 WBC (4.0-11.0) K/uL RBC (4.30-5.90) M/uL Hgb (12.0-16.0) g/dL Hct (36.0-46.0) % MCV (80.0-98.0) fL MCH (27.0-32.0) pg MCHC (31.0-37.0) g/dL RDW Std Deviation (28.0-62.0) fl RDW Coeff of Thomas (11.0-15.0) % Plt Count (150-400) K/uL MPV (7.40-12.00) fL Neut % (Auto) (48.0-80.0) % Lymph % (Auto) (16.0-40.0) % [place] % (Auto) (0.0-15.0) % Eos % (Auto) (0.0-7.0) % Baso % (Auto) (0.0-1.5) % Neut # (Auto) (1.4-5.7) K/uL Lymph # (Auto) (0.6-2.4) K/uL [place] # (Auto) (0.0-0.8) K/uL Eos # (Auto) (0.0-0.7) K/uL Baso # (Auto) (0.0-0.1) K/uL Nucleated RBC % /100WBC Nucleated RBCs # K/uL Sodium (136-145) mmol/L Potassium (3.5-5.1) mmol/L Chloride (98-107) mmol/L Carbon Dioxide (21.0-32.0) mmol/L BUN (7.0-18.0) mg/dL Creatinine (0.6-1.0) mg/dL Est Cr Clr Drug Dosing mL/min Estimated GFR (MDRD) ml/min Glucose (74-106) mg/dL POC Glucose 94 (60-110) mg/dL Calcium (8.5-10.1) mg/dL Phosphorus (2.6-4.7) mg/dL Magnesium (1.8-2.4) mg/dL HCG, Quant mIU/mL Med Orders - Current: Current Medications Insulin Human Regular 100 unit (/ Sodium Chloride) 100 mls @ 6 mls/hr IV TITRATE [facility]; Protocol Last Titration: 01/23/19 11:51 Dose: 0 unit/hr, 0 mls/hr Dextrose/Sodium Chloride (Dextrose 5%-1/2 Ns) 1,000 mls @ 125 mls/hr IV ASDIRECTED [facility] Last Admin: 01/23/19 05:04 Dose: 125 mls/hr Clindamycin Phosphate 300 mg/ (Premix) 50 mls @ 96.154 mls/hr IV Q6H [facility] Last Admin: 01/23/19 13:24 Dose: 96 mls/hr Insulin Aspart (Novolog) 0 unit SUBCUT TIDAC [facility]; Protocol Last Admin: 01/23/19 11:45 Dose: 5 units Morphine Sulfate (Morphine) 1 mg IVPUSH Q3H PRN PRN Reason: Pain (severe 7-10) Ondansetron HCl (Zofran) 4 mg IVPUSH Q4H PRN PRN Reason: Nausea/Vomiting Last Admin: 01/22/19 15:59 Dose: 4 mg Sodium Chloride (Saline Flush) 10 ml FLUSH ASDIRECTED PRN PRN Reason: Keep Vein Open Sodium Chloride (Saline Flush) 2.5 ml FLUSH ASDIRECTED PRN PRN Reason: Keep Vein Open Discontinued Medications Calcium Gluconate (Calcium Gluconate) 1 gm IVPUSH ONETIME ONE Stop: 01/23/19 09:56 Last Admin: 01/23/19 10:45 Dose: 1 gm Sodium Chloride (Normal Saline) 1,000 mls @ 999 mls/hr IV STAT ONE Stop: 01/22/19 01:27 Last Admin: 01/22/19 00:47 Dose: 999 mls/hr Insulin Human Regular 100 unit (/ Sodium Chloride) 100 mls @ 5.89 mls/hr IV TITRATE [facility]; Protocol Last Admin: 01/22/19 01:26 Dose: 0.1 unit/kg/hr, 5.89 mls/hr Sodium Chloride (Normal Saline) 1,000 mls @ 999 mls/hr IV STAT ONE Stop: 01/22/19 02:29 Last Admin: 01/22/19 02:11 Dose: 999 mls/hr Insulin Human Regular 100 unit (/ Sodium Chloride) 100 mls @ 6 mls/hr IV TITRATE [facility]; Protocol Sodium Chloride (Normal Saline) 1,000 mls @ 125 mls/hr IV ASDIRECTED [facility] Sodium Chloride (Normal Saline) 1,000 mls @ 999 mls/hr IV .Bolus ONE Stop: 01/22/19 04:00 Last Admin: 01/22/19 03:33 Dose: 999 mls/hr Dextrose/Sodium Chloride (Dextrose 5%-Normal Saline) 1,000 mls @ 125 mls/hr IV ASDIRECTED [facility] Potassium Chloride 40 meq/ (Premix) 100 mls @ 25 mls/hr IV ONETIME ONE Stop: 01/22/19 08:30 Last Admin: 01/22/19 05:08 Dose: 25 mls/hr Magnesium Sulfate 2 gm/Potassium Phosphate 30 mmole/Sodium Chloride 1,014 mls @ 150 mls/hr IV ONETIME ONE Stop: 01/22/19 16:35 Last Admin: 01/22/19 10:50 Dose: 150 mls/hr Potassium Phosphate 15 mmole/ (Sodium Chloride) 255 mls @ 63.75 mls/hr IV NOW ONE Stop: 01/22/19 21:19 Last Admin: 01/22/19 21:40 Dose: 63.75 mls/hr Potassium Phosphate 45 mmole/ (Sodium Chloride) 515 mls @ 78.03 mls/hr IV NOW ONE Stop: 01/23/19 13:55 Last Admin: 01/23/19 07:48 Dose: Not Given Potassium Phosphate 45 mmole/ (Sodium Chloride) 515 mls @ 78.03 mls/hr IV NOW ONE Stop: 01/23/19 13:55 Last Admin: 01/23/19 08:13 Dose: 78.03 mls/hr Insulin Detemir (Levemir) 12 unit SUBCUT ONETIME ONE Stop: 01/23/19 09:53 Last Admin: 01/23/19 10:43 Dose: 12 unit Insulin Human Regular (Novolin R) 15 unit SUBCUT ONETIME ONE; Protocol Stop: 01/22/19 00:27 Last Admin: 01/22/19 00:44 Dose: 15 units Ondansetron HCl (Zofran) 4 mg IVPUSH ONETIME ONE Stop: 01/22/19 00:28 Last Admin: 01/22/19 00:46 Dose: 4 mg Potassium Chloride (Klor-Con 10) 60 meq PO ONETIME ONE Stop: 01/23/19 07:43 Last Admin: 01/23/19 08:02 Dose: 60 meq Sodium Bicarbonate (Sodium Bicarbonate 8.4%) 50 meq IVPUSH ONETIME ONE Stop: 01/22/19 01:07 Last Admin: 01/22/19 01:14 Dose: 50 meq Sodium Bicarbonate (Sodium Bicarbonate 8.4%) 50 meq IVPUSH ONETIME ONE Stop: 01/22/19 16:33 Last Admin: 01/22/19 18:39 Dose: Not Given
[2019-01-23 18:24] VITALS: BP 116/73
== END 2019-01-23 18:00 | disposition home or self-care (01) | DRG 919 ==
LOC: MW.ED 00:15 → MW.ICU 01:16
PROVIDERS: ADMIT Student in an Organized Health Care Education/Training Program; ATTEND Student in an Organized Health Care Education/Training Program
DX: T85.694A Other mechanical complication of insulin pump, initial encounter (principal); E10.10 Type 1 diabetes mellitus with ketoacidosis without coma; E87.6 Hypokalemia; F41.9 Anxiety disorder, unspecified; F32.9 Major depressive disorder, single episode, unspecified; E05.90 Thyrotoxicosis, unspecified without thyrotoxic crisis or storm; Z87.59 Personal history of other complications of pregnancy, childbirth and the puerperium; Z88.0 Allergy status to penicillin; Z91.14 Patient's other noncompliance with medication regimen
CPT/HCPCS: 36415; 36600; 76830; 76830-26; 80048; 80053; 80061; 81001; 82009; 82803; 82962; 83036; 83735; 84100; 84702; 84703; 85025; 87081; 87086; 87804; 87880-QW; 93005; 96374; 96375; 99285-25; A9270-GY; J0610; J1815-GY; J2405; J3475; J3480; J3490; J7030; J7040; J7042; J7050

== ENCOUNTER 2019-01-30 14:49 | Emergency (ER) | payer SELFPAY ==
--- NOTE | 2019-01-30 15:01 | EDM.PDOC ---
ED HPI GENERAL MEDICAL PROBLEM - General Stated Complaint: DIABETIC REACTION Time Seen by Provider: 01/30/19 14:56 Source of Information: Reports: Family History Limitations: Reports: Altered Mental Status - History of Present Illness INITIAL COMMENTS - FREE TEXT/NARRATIVE: Patient presents to the emergency department with altered mental status. She is a 28-year-old female who is an insulin-dependent diabetic. Patient's blood sugar upon arrival was 27. She is given an amp of D50 upon which she awoke and is now at her normal mental status with blood sugars in the 140s and 150s. Patient does have an insulin pump and did check her sugar this morning which was low but ate breakfast at that time. She denies using any drugs or alcohol. Denies being ill or having any vomiting diarrhea or chest pain or any sign of infection. This is not happened before and patient is scheduled for diabetes patient for a 24-hour a day monitor which will be started tomorrow. There is been no history of any trauma. Onset: Sudden Location: Reports: Generalized Severity: Severe Associated Symptoms: Reports: Other (Unresponsive sudden onset upon awakening from a nap prior to arrival. Patient had low blood sugars this morning but did eat breakfast. 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 Neurological History: Reports: Migraines Psychiatric History: Reports: Anxiety, Depression Endocrine/Metabolic History: Reports: Diabetes, Type I, Hyperthyroidism Insulin Pump Model and Risk Assessment Consultant: Syrmo Hematologic History: Reports: None Immunologic History: Reports: None Oncologic (Cancer) History: Reports: None Dermatologic History: Reports: None - Infectious Disease History Infectious Disease History: Reports: Chicken Pox - Past Surgical History Head Surgeries/Procedures: Reports: None Other Respiratory Surgeries/Procedures: not taking inhaler for some time now Female Surgical History: Reports: Dilitation & Evacuation Endocrine Surgical History: Reports: Other (See Below) Other Endocrine Surgeries/Procedures: Patient has an insulin pump, hx partial thyroidectomy Musculoskeletal Surgical History: Reports: Other (See Below) Other Musculoskeletal Surgeries/Procedures:: right knee surgery and right leg extraction Dermatological Surgical History: Reports: Other (See Below) Social & Family History - Family History Family Medical History: Noncontributory - Caffeine Use Caffeine Use: Reports: Coffee, Soda Other Caffeine Use: 1-2 cups per day ED ROS GENERAL - Review of Systems Review Of Systems: See Below Constitutional: Reports: Diaphoresis Respiratory: Reports: No Symptoms Cardiovascular: Reports: No Symptoms Endocrine: Reports: Other (Unresponsive to stimuli until given 1 amp of D50 and then return of normal mental status.) GI/Abdominal: Reports: No Symptoms : Reports: No Symptoms Musculoskeletal: Reports: No Symptoms Skin: Reports: Diaphoresis Neurological: Reports: No Symptoms Psychiatric: Reports: No Symptoms Hematologic/Lymphatic: Reports: No Symptoms - Physical Exam Exam: See Below Exam Limited By: Altered Mental Status Ears: Normal External Exam Throat/Mouth: Normal Inspection Head Exam: Atraumatic, Normocephalic Neck: Normal Inspection, Supple, Non-Tender Respiratory/Chest: No Respiratory Distress, Lungs Clear, Normal Breath Sounds Cardiovascular: Normal Peripheral Pulses, Regular Rate, Rhythm, No JVD GI/Abdominal: Normal Bowel Sounds, Soft, Non-Tender Neuro Exam (Abbreviated): Alert, Oriented, Normal Cognition, Other (After amp of D50.) Back Exam: Normal Inspection Extremities: Normal Inspection Psychiatric: Normal Affect Skin Exam: Diaphoretic Course - Vital Signs Last Recorded V/S: Last Vital Signs Temp 35.3 C 01/30/19 15:10 Pulse 61 01/30/19 15:10 Resp 14 01/30/19 15:10 BP 106/66 01/30/19 15:10 Pulse Ox 100 01/30/19 15:10 - Orders/Labs/Meds Orders: Active Orders 24 hr Category Date Time Status ADA Diabetic [[place] [employer] Diet] [DIET Diet 01/30/19 Dinner Active ] Dextrose 5%-Lactated Ringers 1,000 ml Med 01/30/19 15:15 Active IV ASDIRECTED Medication Orders Dextrose/Lactated Ringer's (Dextrose 5%-Lactated Ringers) 1,000 mls @ 500 mls/ hr IV ASDIRECTED NYASIA Last Admin: 01/30/19 15:17 Dose: 500 mls/hr Labs: Laboratory Tests 01/30/19 01/30/19 01/30/19 Range/Units 14:59 15:00 15:00 WBC 12.58 H (4.0-11.0) K/uL RBC 3.85 L (4.30-5.90) M/uL Hgb 10.9 L (12.0-16.0) g/dL Hct 33.6 L (36.0-46.0) % MCV 87.3 (80.0-98.0) fL MCH 28.3 (27.0-32.0) pg MCHC 32.4 (31.0-37.0) g/dL RDW Std Deviation 49.6 (28.0-62.0) fl RDW Coeff of Thomas 16 H (11.0-15.0) % Plt Count 514 H (150-400) K/uL MPV 9.40 (7.40-12.00) fL Neut % (Auto) 64.0 (48.0-80.0) % Lymph % (Auto) 23.1 (16.0-40.0) % [place] % (Auto) 12.1 (0.0-15.0) % Eos % (Auto) 0.6 (0.0-7.0) % Baso % (Auto) 0.2 (0.0-1.5) % Neut # (Auto) 8.1 H (1.4-5.7) K/uL Lymph # (Auto) 2.9 H (0.6-2.4) K/uL [place] # (Auto) 1.5 H (0.0-0.8) K/uL Eos # (Auto) 0.1 (0.0-0.7) K/uL Baso # (Auto) 0.0 (0.0-0.1) K/uL Nucleated RBC % 0.0 /100WBC Nucleated RBCs # 0 K/uL Sodium 143 (136-145) mmol/L Potassium 3.7 (3.5-5.1) mmol/L Chloride 106 (98-107) mmol/L Carbon Dioxide 29.6 (21.0-32.0) mmol/L BUN 11 (7.0-18.0) mg/dL Creatinine 0.8 (0.6-1.0) mg/dL Est Cr Clr Drug Dosing 88.15 mL/min Estimated GFR (MDRD) > 60.0 ml/min Glucose 133 H (74-106) mg/dL POC Glucose (60-110) mg/dL Calcium 8.8 (8.5-10.1) mg/dL Total Bilirubin 0.1 L (0.2-1.0) mg/dL AST 133 H (15-37) IU/L ALT 144 H (14-63) IU/L Alkaline Phosphatase 193 H (46-116) U/L Total Protein 6.3 L (6.4-8.2) g/dL Albumin 2.8 L (3.4-5.0) g/dL Globulin 3.5 (2.6-4.0) g/dL Albumin/Globulin Ratio 0.8 L (0.9-1.6) Urine Color Urine Appearance Urine pH (5.0-8.0) Ur Specific [place] (1.001-1.035) Urine Protein (NEGATIVE) mg/dL Urine Glucose (UA) (NEGATIVE) mg/dL Urine Ketones (NEGATIVE) mg/dL Urine Occult Blood (NEGATIVE) Urine Nitrite (NEGATIVE) Urine Bilirubin (NEGATIVE) Urine Urobilinogen (<2.0) EU/dL Ur Leukocyte Esterase (NEGATIVE) Urine Opiates Screen NEGATIVE (NEGATIVE) Ur Oxycodone Screen NEGATIVE (NEGATIVE) Urine Methadone Screen NEGATIVE (NEGATIVE) Ur Barbiturates Screen NEGATIVE (NEGATIVE) Ur Phencyclidine Scrn NEGATIVE (NEGATIVE) Ur Amphetamine Screen NEGATIVE (NEGATIVE) U Methamphetamines Scrn NEGATIVE (NEGATIVE) U Benzodiazepines Scrn NEGATIVE (NEGATIVE) U Cocaine Metab Screen NEGATIVE (NEGATIVE) U Marijuana (THC) Screen NEGATIVE (NEGATIVE) Ethyl Alcohol < 3.0 mg/dL Ketones (NEG) 01/30/19 01/30/19 01/30/19 Range/Units 15:00 15:02 15:15 WBC (4.0-11.0) K/uL RBC (4.30-5.90) M/uL Hgb (12.0-16.0) g/dL Hct (36.0-46.0) % MCV (80.0-98.0) fL MCH (27.0-32.0) pg MCHC (31.0-37.0) g/dL RDW Std Deviation (28.0-62.0) fl RDW Coeff of Thomas (11.0-15.0) % Plt Count (150-400) K/uL MPV (7.40-12.00) fL Neut % (Auto) (48.0-80.0) % Lymph % (Auto) (16.0-40.0) % [place] % (Auto) (0.0-15.0) % Eos % (Auto) (0.0-7.0) % Baso % (Auto) (0.0-1.5) % Neut # (Auto) (1.4-5.7) K/uL Lymph # (Auto) (0.6-2.4) K/uL [place] # (Auto) (0.0-0.8) K/uL Eos # (Auto) (0.0-0.7) K/uL Baso # (Auto) (0.0-0.1) K/uL Nucleated RBC % /100WBC Nucleated RBCs # K/uL Sodium (136-145) mmol/L Potassium (3.5-5.1) mmol/L Chloride (98-107) mmol/L Carbon Dioxide (21.0-32.0) mmol/L BUN (7.0-18.0) mg/dL Creatinine (0.6-1.0) mg/dL Est Cr Clr Drug Dosing mL/min Estimated GFR (MDRD) ml/min Glucose (74-106) mg/dL POC Glucose 143 H (60-110) mg/dL Calcium (8.5-10.1) mg/dL Total Bilirubin (0.2-1.0) mg/dL AST (15-37) IU/L ALT (14-63) IU/L Alkaline Phosphatase (46-116) U/L Total Protein (6.4-8.2) g/dL Albumin (3.4-5.0) g/dL Globulin (2.6-4.0) g/dL Albumin/Globulin Ratio (0.9-1.6) Urine Color YELLOW Urine Appearance CLEAR Urine pH 7.0 (5.0-8.0) Ur Specific [place] 1.015 (1.001-1.035) Urine Protein NEGATIVE (NEGATIVE) mg/dL Urine Glucose (UA) 250 H (NEGATIVE) mg/dL Urine Ketones NEGATIVE (NEGATIVE) mg/dL Urine Occult Blood NEGATIVE (NEGATIVE) Urine Nitrite NEGATIVE (NEGATIVE) Urine Bilirubin NEGATIVE (NEGATIVE) Urine Urobilinogen 0.2 (<2.0) EU/dL Ur Leukocyte Esterase NEGATIVE (NEGATIVE) Urine Opiates Screen (NEGATIVE) Ur Oxycodone Screen (NEGATIVE) Urine Methadone Screen (NEGATIVE) Ur Barbiturates Screen (NEGATIVE) Ur Phencyclidine Scrn (NEGATIVE) Ur Amphetamine Screen (NEGATIVE) U Methamphetamines Scrn (NEGATIVE) U Benzodiazepines Scrn (NEGATIVE) U Cocaine Metab Screen (NEGATIVE) U Marijuana (THC) Screen (NEGATIVE) Ethyl Alcohol mg/dL Ketones NEGATIVE (NEG) 01/30/19 Range/Units 15:27 WBC (4.0-11.0) K/uL RBC (4.30-5.90) M/uL Hgb (12.0-16.0) g/dL Hct (36.0-46.0) % MCV (80.0-98.0) fL MCH (27.0-32.0) pg MCHC (31.0-37.0) g/dL RDW Std Deviation (28.0-62.0) fl RDW Coeff of Thomas (11.0-15.0) % Plt Count (150-400) K/uL MPV (7.40-12.00) fL Neut % (Auto) (48.0-80.0) % Lymph % (Auto) (16.0-40.0) % [place] % (Auto) (0.0-15.0) % Eos % (Auto) (0.0-7.0) % Baso % (Auto) (0.0-1.5) % Neut # (Auto) (1.4-5.7) K/uL Lymph # (Auto) (0.6-2.4) K/uL [place] # (Auto) (0.0-0.8) K/uL Eos # (Auto) (0.0-0.7) K/uL Baso # (Auto) (0.0-0.1) K/uL Nucleated RBC % /100WBC Nucleated RBCs # K/uL Sodium (136-145) mmol/L Potassium (3.5-5.1) mmol/L Chloride (98-107) mmol/L Carbon Dioxide (21.0-32.0) mmol/L BUN (7.0-18.0) mg/dL Creatinine (0.6-1.0) mg/dL Est Cr Clr Drug Dosing mL/min Estimated GFR (MDRD) ml/min Glucose (74-106) mg/dL POC Glucose 131 H (60-110) mg/dL Calcium (8.5-10.1) mg/dL Total Bilirubin (0.2-1.0) mg/dL AST (15-37) IU/L ALT (14-63) IU/L Alkaline Phosphatase (46-116) U/L Total Protein (6.4-8.2) g/dL Albumin (3.4-5.0) g/dL Globulin (2.6-4.0) g/dL Albumin/Globulin Ratio (0.9-1.6) Urine Color Urine Appearance Urine pH (5.0-8.0) Ur Specific [place] (1.001-1.035) Urine Protein (NEGATIVE) mg/dL Urine Glucose (UA) (NEGATIVE) mg/dL Urine Ketones (NEGATIVE) mg/dL Urine Occult Blood (NEGATIVE) Urine Nitrite (NEGATIVE) Urine Bilirubin (NEGATIVE) Urine Urobilinogen (<2.0) EU/dL Ur Leukocyte Esterase (NEGATIVE) Urine Opiates Screen (NEGATIVE) Ur Oxycodone Screen (NEGATIVE) Urine Methadone Screen (NEGATIVE) Ur Barbiturates Screen (NEGATIVE) Ur Phencyclidine Scrn (NEGATIVE) Ur Amphetamine Screen (NEGATIVE) U Methamphetamines Scrn (NEGATIVE) U Benzodiazepines Scrn (NEGATIVE) U Cocaine Metab Screen (NEGATIVE) U Marijuana (THC) Screen (NEGATIVE) Ethyl Alcohol mg/dL Ketones (NEG) Meds: Medications Generic Name Dose Route Start Last Admin Trade Name Freq PRN Reason Stop Dose Admin Dextrose/Lactated Ringer's 1,000 mls @ 500 mls/hr 01/30/19 15:15 01/30/19 15: 17 Dextrose 5%-Lactated Ringers IV 500 mls/hr ASDIRECTED NYASIA Administration Discontinued Medications Generic Name Dose Route Start Last Admin Trade Name Freq PRN Reason Stop Dose Admin Dextrose/Water 50 ml 01/30/19 15:05 01/30/19 15:17 Dextrose 50% In Water IVPUSH 01/30/19 15:06 50 ml ONETIME ONE Administration - Re-Assessments/Exams Free Text/Narrative Re-Assessment/Exam: 01/30/19 16:03 Patient's blood sugars remained stable on D5LR 500 an hour. Lab work is unremarkable. We will make sure she has a ADA meal or to discharging her. Patient feels fine is actually complaining that she is hungry. Meaning that she had frequent checks of her blood sugar today and have a high-protein whole- grain diet. Departure - Departure Time of Disposition: 16:31 Disposition: Home, Self-Care 01 Condition: Good Clinical Impression: Hypoglycemia - Discharge Information Referrals: PCP,None [Primary Care Provider] - Forms: ED Department Discharge Additional Instructions: The following information is given to patients seen in the emergency department who are being discharged to home. This information is to outline your options for follow-up care. We provide all patients seen in our emergency department with a follow-up referral. The need for follow-up, as well as the timing and circumstances, are variable depending upon the specifics of your emergency department visit. If you don't have a primary care physician on staff, we will provide you with a referral. We always advise you to contact your personal physician following an emergency department visit to inform them of the circumstance of the visit and for follow-up with them and/or the need for any referrals to a consulting specialist. The emergency department will also refer you to a specialist when appropriate. This referral assures that you have the opportunity for follow-up care with a specialist. All of these measure are taken in an effort to provide you with optimal care, which includes your follow-up. Under all circumstances we always encourage you to contact your private physician who remains a resource for coordinating your care. When calling for follow-up care, please make the office aware that this follow-up is from your recent emergency room visit. If for any reason you are refused follow-up, please contact the [facility] Emergency Department at and asked to speak to the emergency department charge nurse. Care Plan Goals: Check blood sugar frequently today. High-protein whole-grain diet today. Eat a appropriate snack before going to bed tonight. Follow-up with collating machine operator as scheduled tomorrow. Sepsis Event Note - Focused Exam Vital Signs: Vital Signs Temp Pulse Resp BP Pulse Ox 01/30/19 15:10 35.3 C 61 14 106/66 100 Date Exam was Performed: 01/30/19 Time Exam was Performed: 16:31 - My Orders Last 24 Hours: My Active Orders 01/30/19 15:15 Dextrose 5%-Lactated Ringers 1,000 ml IV ASDIRECTED 01/30/19 Dinner ADA Diabetic [[place] [employer] Diet] [DIET] - Assessment/Plan Last 24 Hours: My Active Orders 01/30/19 15:15 Dextrose 5%-Lactated Ringers 1,000 ml IV ASDIRECTED 01/30/19 Dinner ADA Diabetic [[place] [employer] Diet] [DIET]
[2019-01-30] MEDS ORDERED: 50% Dextrose in Water 50 ML Syringe IVPUSH ONE (15:05)
[2019-01-30 15:14] VITALS: BP 106/66; PULSE 61
[2019-01-30] MEDS ORDERED: Dextrose 5%-Lactated Ringers 1,000 ML IV SCH (15:15)
[2019-01-30 15:35] LABS: BLOOD UREA NITROGEN,BUN 11 mg/dL (7.0-18.0); CARBON DIOXIDE,CO2 29.6 mmol/L (21.0-32.0); CHLORIDE,CL 106 mmol/L (98-107); GLUCOSE RANDOM 133 mg/dL (74-106); POTASSIUM,K 3.7 mmol/L (3.5-5.1); SODIUM,NA 143 mmol/L (136-145)
== END 2019-01-30 16:50 | disposition home or self-care (01) ==
LOC: MW.ED 14:49
DX: E10.649 Type 1 diabetes mellitus with hypoglycemia without coma (principal); Z88.1 Allergy status to other antibiotic agents
CPT/HCPCS: 36415; 80053; 80305; 80320; 81003; 82009; 82962; 85025; 96365; 96366; 96375; 99284; J7121; G0480

== ENCOUNTER 2019-09-01 20:27 | Emergency (ER) | payer OTHER ==
[2019-09-01] MEDS ORDERED: 50% Dextrose in Water 50 ML Syringe IVPUSH ONE (20:40)
--- NOTE | 2019-09-01 20:43 | EDM.PDOC ---
ED HPI GENERAL MEDICAL PROBLEM - General Chief Complaint: Diabetic Complaint Stated Complaint: DIABETIC, LOW BLOOD SUGAR Time Seen by Provider: 09/01/19 20:31 Source of Information: Reports: Patient, EMS History Limitations: Reports: No Limitations - History of Present Illness INITIAL COMMENTS - FREE TEXT/NARRATIVE: 29-year-old female history of type 1 diabetes presents with hypoglycemia. She normally uses an insulin pump with Humalog. Today she ran out of insulin and her blood sugar read 320 this morning. She went to her mom's house to get insulin. She then thinks she accidentally bolused herself with Humalog when she accidentally pressed some settings on the pump. She was watching TV at home when her mom was about to pick her up for dinner and called her and noted that she was confused. When EMS arrived on scene, her BG = 35, she was given oral glucose by EMS. In the ER her BG was 29, and given 1 amp of D50. She now denies fever, chills, headache, chest pain, shortness of breath, abdominal pain, focal numbness or weakness. ROS: A 10-point review of systems, other than pertinent positives and negatives as stated per HPI, is otherwise negative Past medical history: No additional pertinent history Past Surgical history: No additional pertinent history Social history: No additional pertinent history Family history: No additional pertinent history PHYSICAL EXAM General: AOx4, GCS = 15, No distress HEENT: dry mucous membrane Neck: supple, no meningismus, no Kernig or Brudzinski Cardiac: S1S2 RRR Respiratory: CTAB, no crackles or rales, no wheezing Abdomen: Soft, nontender, no rebound or guarding, nondistended, no pulsatile mass. Back: nontender Musculoskeletal: NVI distally, no deformity Neuro: No focal deficits, CN 2 - 12 WNL. 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 Neurological History: Reports: Migraines Psychiatric History: Reports: Anxiety, Depression Endocrine/Metabolic History: Reports: Diabetes, Type I, Hyperthyroidism Insulin Pump Model 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 Bulk Clerk: [employer] Hematologic History: Reports: None Immunologic History: Reports: None Oncologic (Cancer) History: Reports: None Dermatologic History: Reports: None - Infectious Disease History Infectious Disease History: Reports: Chicken Pox - Past Surgical History Head Surgeries/Procedures: Reports: None Other Respiratory Surgeries/Procedures: not taking inhaler for some time now Female Surgical History: Reports: Dilitation & Evacuation Endocrine Surgical History: Reports: Other (See Below) Other Endocrine Surgeries/Procedures: Patient has an insulin pump, hx partial thyroidectomy Musculoskeletal Surgical History: Reports: Other (See Below) Other Musculoskeletal Surgeries/Procedures:: right knee surgery and right leg extraction Dermatological Surgical History: Reports: Other (See Below) Social & Family History - Family History Family Medical History: Noncontributory - Caffeine Use Caffeine Use: Reports: Coffee, Soda Other Caffeine Use: 1-2 cups per day ED ROS GENERAL - Review of Systems Review Of Systems: Comprehensive ROS is negative, except as noted in HPI. ED EXAM GENERAL NO PERIP PULSE - Physical Exam Exam: See Below (see dictation) Course - Vital Signs Last Recorded V/S: Last Vital Signs Temp 97.5 F 09/01/19 20:37 Pulse 82 09/01/19 20:45 Resp 18 09/01/19 20:45 BP 148/80 H 09/01/19 20:45 Pulse Ox 95 09/01/19 20:37 - Orders/Labs/Meds Orders: Active Orders 24 hr Category Date Time Status Blood Glucose Check, Bedside [RC] ONETIME Care 09/01/19 22:01 Active Labs: Laboratory Tests 09/01/19 09/01/19 09/01/19 Range/Units 21:15 21:15 21:59 WBC 9.90 (4.0-11.0) K/uL RBC 4.91 (4.30-5.90) M/uL Hgb 13.9 (12.0-16.0) g/dL Hct 42.3 (36.0-46.0) % MCV 86.2 (80.0-98.0) fL MCH 28.3 (27.0-32.0) pg MCHC 32.9 (31.0-37.0) g/dL RDW Std Deviation 43.3 (28.0-62.0) fl RDW Coeff of Thomas 14 (11.0-15.0) % Plt Count 411 H (150-400) K/uL MPV 10.00 (7.40-12.00) fL Neut % (Auto) 70.8 (48.0-80.0) % Lymph % (Auto) 20.5 (16.0-40.0) % [place] % (Auto) 7.8 (0.0-15.0) % Eos % (Auto) 0.7 (0.0-7.0) % Baso % (Auto) 0.2 (0.0-1.5) % Neut # (Auto) 7.0 H (1.4-5.7) K/uL Lymph # (Auto) 2.0 (0.6-2.4) K/uL [place] # (Auto) 0.8 (0.0-0.8) K/uL Eos # (Auto) 0.1 (0.0-0.7) K/uL Baso # (Auto) 0.0 (0.0-0.1) K/uL Nucleated RBC % 0.0 /100WBC Nucleated RBCs # 0 K/uL Sodium 138 (136-145) mmol/L Potassium 3.7 (3.5-5.1) mmol/L Chloride 100 (98-107) mmol/L Carbon Dioxide 28.7 (21.0-32.0) mmol/L BUN 11 (7.0-18.0) mg/dL Creatinine 1.0 (0.6-1.0) mg/dL Est Cr Clr Drug Dosing 69.90 mL/min Estimated GFR (MDRD) > 60.0 ml/min Glucose 185 H (74-106) mg/dL POC Glucose 222 H (60-110) mg/dL Calcium 8.9 (8.5-10.1) mg/dL Total Bilirubin 0.3 (0.2-1.0) mg/dL AST 23 (15-37) IU/L ALT 25 (14-63) IU/L Alkaline Phosphatase 139 H (46-116) U/L Total Protein 8.4 H (6.4-8.2) g/dL Albumin 4.2 (3.4-5.0) g/dL Globulin 4.2 H (2.6-4.0) g/dL Albumin/Globulin Ratio 1.0 (0.9-1.6) 09/01/19 Range/Units 23:02 WBC (4.0-11.0) K/uL RBC (4.30-5.90) M/uL Hgb (12.0-16.0) g/dL Hct (36.0-46.0) % MCV (80.0-98.0) fL MCH (27.0-32.0) pg MCHC (31.0-37.0) g/dL RDW Std Deviation (28.0-62.0) fl RDW Coeff of Thomas (11.0-15.0) % Plt Count (150-400) K/uL MPV (7.40-12.00) fL Neut % (Auto) (48.0-80.0) % Lymph % (Auto) (16.0-40.0) % [place] % (Auto) (0.0-15.0) % Eos % (Auto) (0.0-7.0) % Baso % (Auto) (0.0-1.5) % Neut # (Auto) (1.4-5.7) K/uL Lymph # (Auto) (0.6-2.4) K/uL [place] # (Auto) (0.0-0.8) K/uL Eos # (Auto) (0.0-0.7) K/uL Baso # (Auto) (0.0-0.1) K/uL Nucleated RBC % /100WBC Nucleated RBCs # K/uL Sodium (136-145) mmol/L Potassium (3.5-5.1) mmol/L Chloride (98-107) mmol/L Carbon Dioxide (21.0-32.0) mmol/L BUN (7.0-18.0) mg/dL Creatinine (0.6-1.0) mg/dL Est Cr Clr Drug Dosing mL/min Estimated GFR (MDRD) ml/min Glucose (74-106) mg/dL POC Glucose 278 H (60-110) mg/dL Calcium (8.5-10.1) mg/dL Total Bilirubin (0.2-1.0) mg/dL AST (15-37) IU/L ALT (14-63) IU/L Alkaline Phosphatase (46-116) U/L Total Protein (6.4-8.2) g/dL Albumin (3.4-5.0) g/dL Globulin (2.6-4.0) g/dL Albumin/Globulin Ratio (0.9-1.6) Meds: Medications Discontinued Medications Generic Name Dose Route Start Last Admin Trade Name Freq PRN Reason Stop Dose Admin Dextrose/Water 50 ml 09/01/19 20:40 09/01/19 20:30 Dextrose 50% In Water IVPUSH 09/01/19 20:41 50 ml ONETIME ONE Administration - Re-Assessments/Exams Free Text/Narrative Re-Assessment/Exam: 09/01/19 23:15 After treatments and observation in the ER, patient improved clinically and is currently stable for discharge. I performed a repeat exam and did not appreciate new abnormal findings. Patient exhibits normal vital signs and has a normal gait. He reepat accuchecks have been normal. I advised the patient to return to the ER for reevaluation if symptoms worsened, including fever, worsening pain, or any other worrisome symptoms. I instructed the patient to follow up with their PCP within 2-3 days. Departure - Departure Time of Disposition: 23:15 Disposition: Home, Self-Care 01 Condition: Good Clinical Impression: Hypoglycemia - Discharge Information *PRESCRIPTION DRUG MONITORING PROGRAM REVIEWED*: Not Applicable *COPY OF PRESCRIPTION DRUG MONITORING REPORT IN PATIENT EVELYNE: Not Applicable Instructions: Hypoglycemia Forms: ED Department Discharge Additional Instructions: The following information is given to patients seen in the emergency department who are being discharged to home. This information is to outline your options for follow-up care. We provide all patients seen in our emergency department with a follow-up referral. The need for follow-up, as well as the timing and circumstances, are variable depending upon the specifics of your emergency department visit. If you don't have a primary care physician on staff, we will provide you with a referral. We always advise you to contact your personal physician following an e mergency department visit to inform them of the circumstance of the visit and for follow-up with them and/or the need for any referrals to a consulting specialist. The emergency department will also refer you to a specialist when appropriate. This referral assures that you have the opportunity for follow-up care with a specialist. All of these measure are taken in an effort to provide you with op timal care, which includes your follow-up. Under all circumstances we always encourage you to contact your private physician who remains a resource for coordinating your care. When calling for follow-up care, please make the office aware that this follow-up is from your recent emergency room visit. If for any reason you are refused follow-up, please contact the [facility] Emergency Department at and asked to speak to the emergency department charge nurse. If you do not have a primary care doctor, please follow up with the clinics below within 3-5 days. [facility] - Primary Care [address] [place] [address] [id number] Sepsis Event Note (ED) - Focused Exam Vital Signs: Vital Signs Temp Pulse Resp BP Pulse Ox 09/01/19 20:45 82 18 148/80 H 09/01/19 20:37 97.5 F 95 16 126/93 H 95 - My Orders Last 24 Hours: My Active Orders 09/01/19 22:01 Blood Glucose Check, Bedside [RC] ONETIME - Assessment/Plan Last 24 Hours: My Active Orders 09/01/19 22:01 Blood Glucose Check, Bedside [RC] ONETIME
[2019-09-01 21:45] LABS: BLOOD UREA NITROGEN,BUN 11 mg/dL (7.0-18.0); CARBON DIOXIDE,CO2 28.7 mmol/L (21.0-32.0); CHLORIDE,CL 100 mmol/L (98-107); GLUCOSE RANDOM 185 mg/dL (74-106); POTASSIUM,K 3.7 mmol/L (3.5-5.1); SODIUM,NA 138 mmol/L (136-145)
[2019-09-02 03:48] VITALS: BP 126/75; PULSE 88
== END 2019-09-01 23:20 | disposition home or self-care (01) ==
LOC: MW.ED 20:27
DX: E10.649 Type 1 diabetes mellitus with hypoglycemia without coma (principal); Z88.1 Allergy status to other antibiotic agents
CPT/HCPCS: 36415; 80053; 82962; 85025; 96374; 99283; 99285-25

== ENCOUNTER 2020-11-19 12:13 | Emergency (ER) | payer SELFPAY ==
--- NOTE | 2020-11-19 15:18 | EDM.PDOC ---
ED HPI GENERAL MEDICAL PROBLEM - General Chief Complaint: Diabetic Complaint Stated Complaint: low blood sugar Time Seen by Provider: 11/19/20 12:21 - History of Present Illness INITIAL COMMENTS - FREE TEXT/NARRATIVE: CHIEF COMPLAINT(S): Hypoglycemia HISTORY OF PRESENT ILLNESS: This is a 30-year-old woman with a past medical history of diabetes mellitus with an insulin pump who presents to the emergency department via EMS with chief complaint of hypoglycemia. Per EMS they were unable to obtain IV access to provide D50 however they were able to provide oral glucose. The patient's glucose was severely low by EMS and she appeared to improve in route. The patient states that she did not eat this morning and she does use an insulin pump. She does not recall when her sugar was low like this in the past. She currently denies any chest pain, shortness of breath, abdominal pain, nausea, vomiting, headache, numbness, tingling, or weakness. She denies any other symptoms. REVIEW OF SYSTEMS: Constitutional: Denies fever, chills. Eyes: Denies eye pain Ears, Nose, Mouth, & Throat: Denies earache Cardiovascular: Denies chest pain Respiratory: Denies shortness of breath Gastrointestinal: Denies Nausea, vomiting, diarrhea, hematochezia. Genitourinary: Denies hematuria Skin:Denies a rash MSK: Denies joint pain Neurological: Denies blurred vision Psychiatric: Denies depression PAST MEDICAL HISTORY: As per history of present illness and as reviewed below otherwise noncontributory. SURGICAL HISTORY: As per history of present illness and as reviewed below otherwise noncontributory. SOCIAL HISTORY: As per history of present illness and as reviewed below otherwise noncontributory. FAMILY HISTORY: As per history of present illness and as reviewed below otherwise noncontributory. EXAMINATION OF ORGAN SYSTEMS/BODY AREAS: Constitutional: Blood pressure is 108/78, heart rate 78, respiratory rate 18 with an oxygen saturation of 99% on room air. Temperature 35.9 General: Young woman who is in no acute distress Psychiatric: Appropriate mood and affect. Eyes: No scleral icterus or conjunctival erythema ENMT: Moist mucous membranes. No pharyngeal erythema Cardiovascular: Regular, rate, and rhythm. No gallops, murmurs, or rubs. Bilateral upper extremity pulses symmetric and intact. No peripheral edema. No JVD. Respiratory: Lungs clear to auscultation bilaterally. No wheezes, rales, or rhonchi. Gastrointestinal: Soft, non-tender, non-distended. Normoactive bowel sounds Genitourinary: No suprapubic tenderness Musculoskeletal: Normal range of motion. Skin: No lesions or abrasions. Neurological: Alert, GCS 15 MEDICAL DECISION MAKING AND COURSE IN THE ED WITH INTERPRETATION/REVIEW OF DIAGNOSTIC STUDIES: This is a 30-year-old woman with a past medical history of diabetes mellitus with an insulin pump who presents to the emergency department with a hypoglycemic episode. At this time we did remove the patient's insulin pump. [id number] glucose at this time was 25. The patient is awake and alert therefore we will provide the patient with juice and glucose by mouth. IV access is difficult to obtain therefore I did place an ultrasound-guided 18- gauge peripheral IV in the right upper extremity. We will recheck the patient's glucose and evaluate if patient is able to tolerate p.o. In addition we will obtain a simulation educator. Laboratory: Repeat glucose was 149 and 169. Our simulation educator to come down and evaluate the insulin pump with the patient. She was given a plan and a appointment was scheduled for her. The patient was amenable to discharge at this time and had no further questions. DISPOSITION: The patient was discharged home in stable condition. The patient will follow up at her scheduled appointment CONDITION: Fair PROCEDURES: Ultrasound-guided peripheral IV FINAL IMPRESSION(S)/DIAGNOSES: 1. Acute hypoglycemic episode Antonio Luna M.D. 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 Musculoskeletal History: Reports: None Neurological History: Reports: Migraines Psychiatric History: Reports: Anxiety, Depression Endocrine/Metabolic History: Reports: Diabetes, Type I, Hyperthyroidism Insulin Pump Model and Juvenile Counselor: [facility] Hematologic History: Reports: None Immunologic History: Reports: None Oncologic (Cancer) History: Reports: None Dermatologic History: Reports: None - Infectious Disease History Infectious Disease History: Reports: Chicken Pox - Past Surgical History Head Surgeries/Procedures: Reports: None Respiratory Surgical History: Reports: None Female Surgical History: Reports: Dilitation & Evacuation Endocrine Surgical History: Reports: Other (See Below) Other Endocrine Surgeries/Procedures: Patient has an insulin pump, hx partial thyroidectomy Musculoskeletal Surgical History: Reports: Other (See Below) Other Musculoskeletal Surgeries/Procedures:: right knee surgery and right leg extraction Dermatological Surgical History: Reports: Other (See Below) Social & Family History - Family History Family Medical History: No Pertinent Family History - Tobacco Use Tobacco Use Status *Q: Current Some Day Tobacco User Years of Tobacco use: 10 Packs/Tins Daily: 0.1 - Caffeine Use Caffeine Use: Reports: Coffee, Energy Drinks, Soda, Tea Other Caffeine Use: 1-2 cups per day - Recreational Drug Use Recreational Drug Use: Yes Drug Use in Last 12 Months: Yes Recreational Drug Type: Reports: Marijuana/Hashish Recreational Drug Use Frequency: Socially ED ROS GENERAL - Review of Systems Review Of Systems: See Below ED EXAM GENERAL NO PERIP PULSE - Physical Exam Exam: See Below Course - Vital Signs Last Recorded V/S: Last Vital Signs Temp 35.8 C L 11/19/20 15:33 Pulse 98 11/19/20 15:33 Resp 16 11/19/20 15:33 BP 126/54 L 11/19/20 15:33 Pulse Ox 99 11/19/20 15:33 - Orders/Labs/Meds Labs: Laboratory Tests 11/19/20 11/19/20 Range/Units 12:46 12:56 POC Glucose 149 H 169 H (70-99) mg/dL Departure - Departure Time of Disposition: 15:17 Disposition: Home, Self-Care 01 Condition: Fair Clinical Impression: Hypoglycemia - Discharge Information *PRESCRIPTION DRUG MONITORING PROGRAM REVIEWED*: No *COPY OF PRESCRIPTION DRUG MONITORING REPORT IN PATIENT EVELYNE: No Instructions: Hypoglycemia, [id number] Referrals: PCP,None [Primary Care Provider] - Forms: ED Department Discharge Additional Instructions: You were evaluated today on an emergent basis. At this time we did have our simulation educator come down and evaluate your pump and discuss with you proper usage of record the sugars as she had discussed with you in follow-up at the scheduled appointment next week. [facility] [address] [place] [address] [facility] [address] [place] [id number] The patient is informed of any results of their evaluation and diagnostic workup and all questions are answered. They are given discharge instructions and return precautions. The patient is stable for discharge. The patient states they understand and agree with the plan and that they will return if their symptoms get worse or if they have any new concerns. The following information is given to patients seen in the emergency department who are being discharged to home. This information is to outline your options for follow-up care. We provide all patients seen in our emergency department with a follow-up referral. The need for follow-up, as well as the timing and circumstances, are variable depending upon the specifics of your emergency department visit. If you don't have a primary care physician on staff, we will provide you with a referral. We always advise you to contact your personal physician following an emergency department visit to inform them of the circumstance of the visit and for follow-up with them and/or the need for any referrals to a consulting specialist. The emergency department will also refer you to a specialist when appropriate. This referral assures that you have the opportunity for follow-up care with a specialist. All of these measure are taken in an effort to provide you with optimal care, which includes your follow-up. Under all circumstances we always encourage you to contact your private physician who remains a resource for coordinating your care. When calling for follow-up care, please make the office aware that this follow-up is from your recent emergency room visit. If for any reason you are refused follow-up, please contact the [facility] Emergency Department at and asked to speak to the emergency department charge nurse. Sepsis Event Note (ED) - Evaluation Sepsis Screening Result: No Definite Risk
[2020-11-19 15:35] VITALS: BP 126/54; PULSE 98
== END 2020-11-19 15:41 | disposition home or self-care (01) ==
LOC: MW.ED 12:13
DX: E10.649 Type 1 diabetes mellitus with hypoglycemia without coma (principal); Z88.0 Allergy status to penicillin; Z72.0 Tobacco use
CPT/HCPCS: 82947; 99285

== ENCOUNTER 2021-01-02 13:26 | Observation (INO) | payer OTHER ==
[2021-01-02] MEDS ORDERED: Sodium Chloride 0.9% 1,000 ML IV ONE ×2 (14:54→16:36)
[2021-01-02] MEDS ORDERED: Ondansetron 4 MG/2 ML SDV IVPUSH ONE ×2 (14:54→16:36)
[2021-01-02] MEDS ORDERED: Sodium Chloride 0.9% 10 ML Syringe FLUSH PRN (14:54)
[2021-01-02] MEDS ORDERED: Sodium Chloride 0.9% 2.5 ML Syringe FLUSH PRN (14:54)
--- NOTE | 2021-01-02 15:06 | EDM.PDOC ---
ED HPI GENERAL MEDICAL PROBLEM - General Chief Complaint: Respiratory Problem Stated Complaint: COUGH,LIGHTHADED Time Seen by Provider: 01/02/21 14:45 Source of Information: Reports: Patient History Limitations: Reports: No Limitations - History of Present Illness INITIAL COMMENTS - FREE TEXT/NARRATIVE: HISTORY AND PHYSICAL: History of present illness: Patient is a 30-year-old female with a history of type 1 diabetes who presents to the emergency department with complaints of lightheadedness after 2 days of vomiting and abdominal discomfort. The patient states that her sugars have been all over the place and she does have an insulin pump which she is trying to manage. At the bedside her blood sugar was 336. The patient states that she developed a cough a few hours ago. The patient denies any kind of diarrhea. She just has been unable to eat or drink. The patient does have a history of frequent DKA. Patient denies any fever, chills, headache, change in vision, syncope or near syncope. Denies any chest pain, back pain, or shortness of breath. Denies any diarrhea, constipation or dysuria. Has not noted any blood in urine or stool. Review of systems: As per history of present illness and below otherwise all systems reviewed and negative. Past medical history: As per history of present illness and as reviewed below otherwise noncontributory. Surgical history: As per history of present illness and as reviewed below otherwise noncontributory. Social history: See social history for further information Family history: As per history of present illness and as reviewed below otherwise noncontributory. Physical exam: General: Well developed and well nourished. Alert and orientated x 3. Nontoxic in appearance and in no acute distress. Vital signs are stable and have been reviewed by me. Nursing notes were reviewed. HEENT: Atraumatic, normocephalic, pupils equal and reactive bilaterally, negative for conjunctival pallor or scleral icterus, mucous membranes moist, TMs normal bilaterally, throat clear, neck supple, nontender, trachea midline. No drooling or trismus noted. No meningeal signs. No hot potato voice noted. Lungs: Clear to auscultation bilaterally. No wheezes, rales, or rhonchi. Chest nontender. Normal work of breathing, no accessory muscles used. Heart: S1S2, regular rate and rhythm without overt murmur, gallops, or rubs. No JVD. No peripheral edema Abdomen: Soft, nondistended, nontender. Normoactive bowel sounds. Negative for masses or costovertebral tenderness. Skin: Intact, warm, dry. No lesions or rashes noted. Hematologic: No petechiae or purpra. Mucosa appropriate color and normal nail bed color and refill. Extremities: Atraumatic, moves all extremities per self without difficulty or deficits, negative for cords or calf pain. Neurovascular unremarkable. Neuro: Awake, alert, oriented. Cranial nerves II through XII unremarkable. Cerebellum unremarkable. Motor and sensory unremarkable throughout. Exam no nfocal. Psychiatric: Mood and affect are appropriate. Normal thought process. Answering questions appropriately. Notes: *This patient was seen and evaluated during the 2019 SARS-CoV-2 [facility] pandemic period. Community viral transmission is ongoing at time of this encounter and the emergency department is operating under pandemic response procedures. As stated above the patient is a 30-year-old female with a history of type 1 diabetes who presents to the emergency department after 2 days of nausea and vomiting and is now lightheaded. The patient has a history of frequent DKA's a nd states that her blood sugar has been"all over the place". The patient has been doing her blood sugar by taking her glucose manually at home and adjusting her insulin pump. Patient is COVID-19 vaccinated with Moderna the first 1 being on 07/14/2020. I will do a DKA work-up, treat the patient with fluids,and Zofran. The patient is agreeable with this plan. The patient's CBC is only significant for a platelet of 608. The patient's chemistry sodium 135, potassium 4.6 chloride 94 carbon dioxide 33 creatinine 1.1 glucose is 445. The patient's urine is significant for glucose over thousand, trace ketones, large amount of occult blood, trace leukocyte Estrace white blood cell count 40-50 and 1+ bacteria. Patient's ketones are negative and the patient's COVID-19 is negative. The patient continues to be very nauseated I have repeated her Zofran and her fluids. I haven't spoken with guarding the need for 23-hour observation as the patient is still very nauseated and unable to keep fluids down. We'll monitor her glucose to ensure she does not go into DKA. The doctor is agreeable with this. I have spoken with the patient and she is agreeable with the 23-hour observation. Diagnostics: CBC, CMP, urinalysis, urine hCG, ketones Therapeutics: IV fluids, Zofran Impression: Gastroenteritis, hyperglycemia Definitive disposition and diagnosis as appropriate pending reevaluation and review of above. 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 Musculoskeletal History: Reports: None Neurological History: Reports: Migraines Psychiatric History: Reports: Anxiety, Depression Endocrine/Metabolic History: Reports: Diabetes, Type I, Hyperthyroidism Insulin Pump Model and Senior Data Modeler: [facility] Hematologic History: Reports: None Immunologic History: Reports: None Oncologic (Cancer) History: Reports: None Dermatologic History: Reports: None - Infectious Disease History Infectious Disease History: Reports: Chicken Pox - Past Surgical History Head Surgeries/Procedures: Reports: None Respiratory Surgical History: Reports: None Other Respiratory Surgeries/Procedures: not taking inhaler for some time now Female Surgical History: Reports: Dilitation & Evacuation Endocrine Surgical History: Reports: Other (See Below) Other Endocrine Surgeries/Procedures: Patient has an insulin pump, hx partial thyroidectomy Musculoskeletal Surgical History: Reports: Other (See Below) Other Musculoskeletal Surgeries/Procedures:: right knee surgery and right leg extraction Dermatological Surgical History: Reports: Other (See Below) Social & Family History - Family History Family Medical History: No Pertinent Family History - Tobacco Use Tobacco Use Status *Q: Never Tobacco User Second Hand Smoke Exposure: No - Caffeine Use Caffeine Use: Reports: Coffee Other Caffeine Use: 1-2 cups per day - Recreational Drug Use Recreational Drug Use: Yes Drug Use in Last 12 Months: Yes Recreational Drug Type: Reports: Marijuana/Hashish Recreational Drug Use Frequency: Socially ED ROS GENERAL - Review of Systems Review Of Systems: Comprehensive ROS is negative, except as noted in HPI. ED EXAM, GENERAL - Physical Exam Exam: See Below (See dictation) Course - Vital Signs Last Recorded V/S: Last Vital Signs Temp 99.4 F 01/02/21 18:57 Pulse 86 01/02/21 18:57 Resp 17 01/02/21 18:57 BP 111/73 01/02/21 18:57 Pulse Ox 96 01/02/21 18:57 - Orders/Labs/Meds Orders: Active Orders 24 hr Category Date Time Status Patient Status [ADT] Routine ADT 01/02/21 16:50 Active Blood Glucose Check, Bedside [RC] Q4H Care 01/02/21 16:50 Active Oxygen Therapy [RC] PRN Care 01/02/21 16:50 Active Up ad Catherine [RC] ASDIRECTED Care 01/02/21 16:50 Active VTE/DVT Education [RC] PER UNIT ROUTINE Care 01/02/21 16:50 Active Vital Signs [RC] Q4H Care 01/02/21 16:50 Active Clear Liquid Diet [DIET] Diet 01/03/21 Breakfast Active BASIC METABOLIC PANEL,BMP [CHEM] AM Lab 01/03/21 05:11 Ordered CBC WITH AUTO DIFF [HEME] AM Lab 01/03/21 05:11 Ordered Acetaminophen [TylenoL] Med 01/02/21 16:50 Active 650 mg PO Q4H PRN Heparin Sodium Med 01/02/21 17:00 Active 5,000 units SUBCUT Q12H Ondansetron [Zofran ODT] Med 01/02/21 16:50 Active 4 mg PO Q4H PRN Ondansetron [Zofran] Med 01/02/21 16:54 Active 4 mg IVPUSH Q6H PRN Promethazine [Phenergan] Med 01/02/21 16:50 Active 12.5 mg IM Q4H PRN Sodium Chloride 0.9% [Normal Saline] 1,000 ml Med 01/02/21 17:00 Active IV ASDIRECTED Sodium Chloride 0.9% [Saline Flush] Med 01/02/21 14:54 Active 10 ml FLUSH ASDIRECTED PRN Sodium Chloride 0.9% [Saline Flush] Med 01/02/21 14:54 Active 2.5 ml FLUSH ASDIRECTED PRN Saline Lock Insert [OM.PC] Stat Oth 01/02/21 14:54 Ordered Resuscitation Status Routine Resus Stat 01/02/21 16:50 Ordered Medication Orders Acetaminophen (Acetaminophen 325 Mg Tab) 650 mg PO Q4H PRN PRN Reason: Pain (Mild 1-3)/fever Dextrose/Water (50% Dextrose In Water 50 Ml Syringe) 50 ml IVPUSH ASDIRECTED PRN PRN Reason: Hypoglycemia Glucagon (Glucagon,Human Recombinant 1 Mg Vial) 1 mg IM ASDIRECTED PRN PRN Reason: Hypoglycemia Heparin Sodium (Porcine) (Heparin Sodium 5,000 Units/Ml Vial) 5,000 units SUBCUT Q12H [facility] Last Admin: 01/02/21 18:59 Dose: 5,000 units Documented by: EARLE Sodium Chloride (Normal Saline) 1,000 mls @ 125 mls/hr IV ASDIRECTED [facility] Last Admin: 01/02/21 19:26 Dose: 125 mls/hr Documented by: EARLE Ceftriaxone Sodium/Dextrose (Rocephin In Dextrose,Iso-Osm 2 Gm/50 Ml) 2 gm in 50 mls @ 100 mls/hr IV Q24H [facility] Last Admin: 01/02/21 18:29 Dose: 100 mls/hr Documented by: OK Insulin Aspart (Insulin Aspart 100 Units/Ml 3 Ml Pen) 0 unit SUBCUT Q4HR [facility]; Protocol Ondansetron HCl (Ondansetron 4 Mg Tab.Dis) 4 mg PO Q4H PRN PRN Reason: nausea, able to take PO Ondansetron HCl (Ondansetron 4 Mg/2 Ml Sdv) 4 mg IVPUSH Q6H PRN PRN Reason: Nausea/Vomiting Promethazine HCl (Promethazine 25 Mg/Ml Sdv) 12.5 mg IM Q4H PRN PRN Reason: Nausea/Vomiting Sodium Chloride (Sodium Chloride 0.9% 10 Ml Syringe) 10 ml FLUSH ASDIRECTED PRN PRN Reason: Keep Vein Open Last Admin: 01/02/21 15:10 Dose: 10 ml Documented by: OK Sodium Chloride (Sodium Chloride 0.9% 2.5 Ml Syringe) 2.5 ml FLUSH ASDIRECTED PRN PRN Reason: Keep Vein Open Last Admin: 01/02/21 15:10 Dose: 2.5 ml Documented by: OK Labs: Laboratory Tests 11/27/21 11/27/21 11/27/21 Range/Units 14:47 14:51 15:00 WBC (4.0-11.0) K/uL RBC (4.30-5.90) M/uL Hgb (12.0-16.0) g/dL Hct (36.0-46.0) % MCV (80.0-98.0) fL MCH (27.0-32.0) pg MCHC (31.0-37.0) g/dL RDW Std Deviation (28.0-62.0) fl RDW Coeff of Thomas (11.0-15.0) % Plt Count (150-400) K/uL MPV (7.40-12.00) fL Neut % (Auto) (48.0-80.0) % Lymph % (Auto) (16.0-40.0) % [place] % (Auto) (0.0-15.0) % Eos % (Auto) (0.0-7.0) % Baso % (Auto) (0.0-1.5) % Neut # (Auto) (1.4-5.7) K/uL Lymph # (Auto) (0.6-2.4) K/uL [place] # (Auto) (0.0-0.8) K/uL Eos # (Auto) (0.0-0.7) K/uL Baso # (Auto) (0.0-0.1) K/uL Nucleated RBC % /100WBC Nucleated RBCs # K/uL Sodium (136-145) mmol/L Potassium (3.5-5.1) mmol/L Chloride (98-107) mmol/L Carbon Dioxide (21.0-32.0) mmol/L BUN (7.0-18.0) mg/dL Creatinine (0.6-1.0) mg/dL Est Cr Clr Drug Dosing mL/min Estimated GFR (MDRD) ml/min Glucose (74-106) mg/dL POC Glucose 338 H (70-99) mg/dL Calcium (8.5-10.1) mg/dL Total Bilirubin (0.2-1.0) mg/dL AST (15-37) IU/L ALT (14-63) IU/L Alkaline Phosphatase (46-116) U/L Total Protein (6.4-8.2) g/dL Albumin (3.4-5.0) g/dL Globulin (2.6-4.0) g/dL Albumin/Globulin Ratio (0.9-1.6) Urine Color YELLOW Urine Appearance CLOUDY Urine pH 7.0 (5.0-8.0) Ur Specific [place] 1.020 (1.001-1.035) Urine Protein 100 H (NEGATIVE) mg/dL Urine Glucose (UA) >=1000 (NEGATIVE) mg/dL Urine Ketones TRACE H (NEGATIVE) mg/dL Urine Occult Blood LARGE H (NEGATIVE) Urine Nitrite NEGATIVE (NEGATIVE) Urine Bilirubin SMALL H (NEGATIVE) Urine Urobilinogen 1.0 (<2.0) EU/dL Ur Leukocyte Esterase TRACE H (NEGATIVE) Urine RBC 15-20 (0-2/HPF) Urine WBC 40-50 (0-5/HPF) Ur Epithelial Cells MODERATE (NONE-FEW) Urine Bacteria 1+ H (NEGATIVE) Urine HCG, Qual (NEGATIVE) Ketones (NEG) SARS-CoV-2 RNA (ISABEL) NEGATIVE (NEGATIVE) 01/02/21 01/02/21 01/02/21 Range/Units 15:00 15:05 15:05 WBC 8.57 (4.0-11.0) K/uL RBC 4.87 (4.30-5.90) M/uL Hgb 13.8 (12.0-16.0) g/dL Hct 40.7 (36.0-46.0) % MCV 83.6 (80.0-98.0) fL MCH 28.3 (27.0-32.0) pg MCHC 33.9 (31.0-37.0) g/dL RDW Std Deviation 39.4 (28.0-62.0) fl RDW Coeff of Thomas 13 (11.0-15.0) % Plt Count 608 H (150-400) K/uL MPV 10.30 (7.40-12.00) fL Neut % (Auto) 59.8 (48.0-80.0) % Lymph % (Auto) 31.4 (16.0-40.0) % [place] % (Auto) 6.4 (0.0-15.0) % Eos % (Auto) 1.9 (0.0-7.0) % Baso % (Auto) 0.5 (0.0-1.5) % Neut # (Auto) 5.1 (1.4-5.7) K/uL Lymph # (Auto) 2.7 H (0.6-2.4) K/uL [place] # (Auto) 0.6 (0.0-0.8) K/uL Eos # (Auto) 0.2 (0.0-0.7) K/uL Baso # (Auto) 0.0 (0.0-0.1) K/uL Nucleated RBC % 0.0 /100WBC Nucleated RBCs # 0 K/uL Sodium 135 L (136-145) mmol/L Potassium 4.6 (3.5-5.1) mmol/L Chloride 94 L (98-107) mmol/L Carbon Dioxide 33.0 H (21.0-32.0) mmol/L BUN 13 (7.0-18.0) mg/dL Creatinine 1.1 H (0.6-1.0) mg/dL Est Cr Clr Drug Dosing 62.99 mL/min Estimated GFR (MDRD) 59.1 ml/min Glucose 445 H (74-106) mg/dL POC Glucose (70-99) mg/dL Calcium 9.1 (8.5-10.1) mg/dL Total Bilirubin 0.2 (0.2-1.0) mg/dL AST 9 L (15-37) IU/L ALT 17 (14-63) IU/L Alkaline Phosphatase 197 H (46-116) U/L Total Protein 8.6 H (6.4-8.2) g/dL Albumin 3.4 (3.4-5.0) g/dL Globulin 5.2 H (2.6-4.0) g/dL Albumin/Globulin Ratio 0.7 L (0.9-1.6) Urine Color Urine Appearance Urine pH (5.0-8.0) Ur Specific [place] (1.001-1.035) Urine Protein (NEGATIVE) mg/dL Urine Glucose (UA) (NEGATIVE) mg/dL Urine Ketones (NEGATIVE) mg/dL Urine Occult Blood (NEGATIVE) Urine Nitrite (NEGATIVE) Urine Bilirubin (NEGATIVE) Urine Urobilinogen (<2.0) EU/dL Ur Leukocyte Esterase (NEGATIVE) Urine RBC (0-2/HPF) Urine WBC (0-5/HPF) Ur Epithelial Cells (NONE-FEW) Urine Bacteria (NEGATIVE) Urine HCG, Qual NEGATIVE (NEGATIVE) Ketones (NEG) SARS-CoV-2 RNA (ISABEL) (NEGATIVE) 01/02/21 Range/Units 15:05 WBC (4.0-11.0) K/uL RBC (4.30-5.90) M/uL Hgb (12.0-16.0) g/dL Hct (36.0-46.0) % MCV (80.0-98.0) fL MCH (27.0-32.0) pg MCHC (31.0-37.0) g/dL RDW Std Deviation (28.0-62.0) fl RDW Coeff of Thomas (11.0-15.0) % Plt Count (150-400) K/uL MPV (7.40-12.00) fL Neut % (Auto) (48.0-80.0) % Lymph % (Auto) (16.0-40.0) % [place] % (Auto) (0.0-15.0) % Eos % (Auto) (0.0-7.0) % Baso % (Auto) (0.0-1.5) % Neut # (Auto) (1.4-5.7) K/uL Lymph # (Auto) (0.6-2.4) K/uL [place] # (Auto) (0.0-0.8) K/uL Eos # (Auto) (0.0-0.7) K/uL Baso # (Auto) (0.0-0.1) K/uL Nucleated RBC % /100WBC Nucleated RBCs # K/uL Sodium (136-145) mmol/L Potassium (3.5-5.1) mmol/L Chloride (98-107) mmol/L Carbon Dioxide (21.0-32.0) mmol/L BUN (7.0-18.0) mg/dL Creatinine (0.6-1.0) mg/dL Est Cr Clr Drug Dosing mL/min Estimated GFR (MDRD) ml/min Glucose (74-106) mg/dL POC Glucose (70-99) mg/dL Calcium (8.5-10.1) mg/dL Total Bilirubin (0.2-1.0) mg/dL AST (15-37) IU/L ALT (14-63) IU/L Alkaline Phosphatase (46-116) U/L Total Protein (6.4-8.2) g/dL Albumin (3.4-5.0) g/dL Globulin (2.6-4.0) g/dL Albumin/Globulin Ratio (0.9-1.6) Urine Color Urine Appearance Urine pH (5.0-8.0) Ur Specific [place] (1.001-1.035) Urine Protein (NEGATIVE) mg/dL Urine Glucose (UA) (NEGATIVE) mg/dL Urine Ketones (NEGATIVE) mg/dL Urine Occult Blood (NEGATIVE) Urine Nitrite (NEGATIVE) Urine Bilirubin (NEGATIVE) Urine Urobilinogen (<2.0) EU/dL Ur Leukocyte Esterase (NEGATIVE) Urine RBC (0-2/HPF) Urine WBC (0-5/HPF) Ur Epithelial Cells (NONE-FEW) Urine Bacteria (NEGATIVE) Urine HCG, Qual (NEGATIVE) Ketones NEGATIVE (NEG) SARS-CoV-2 RNA (ISABEL) (NEGATIVE) Meds: Medications Generic Name Dose Route Start Last Admin Trade Name Freq PRN Reason Stop Dose Admin Acetaminophen 650 mg 01/02/21 16:50 Acetaminophen 325 Mg Tab PO Q4H PRN Pain (Mild 1-3)/fever Dextrose/Water 50 ml 01/02/21 17:01 50% Dextrose In Water 50 Ml Syringe IVPUSH ASDIRECTED PRN Hypoglycemia Glucagon 1 mg 01/02/21 17:01 Glucagon,Human Recombinant 1 Mg Vial IM ASDIRECTED PRN Hypoglycemia Heparin Sodium (Porcine) 5,000 units 01/02/21 17:00 01/02/21 18:59 Heparin Sodium 5,000 Units/Ml Vial SUBCUT 5,000 units Q12H [facility] Administration Sodium Chloride 1,000 mls @ 125 mls/hr 01/02/21 17:00 01/02/21 19:26 Normal Saline IV 125 mls/hr ASDIRECTED [facility] Administration Ceftriaxone Sodium/Dextrose 2 gm in 50 mls @ 100 mls/hr 01/02/21 18:00 01/02/21 18:29 Rocephin In Dextrose,Iso-Osm 2 Gm/50 Ml IV 100 mls/hr Q24H [facility] Administration Insulin Aspart 0 unit 01/02/21 20:00 Insulin Aspart 100 Units/Ml 3 Ml Pen SUBCUT Q4HR [facility] Protocol Ondansetron HCl 4 mg 01/02/21 16:50 Ondansetron 4 Mg Tab.Dis PO Q4H PRN nausea, able to take PO Ondansetron HCl 4 mg 01/02/21 16:54 Ondansetron 4 Mg/2 Ml Sdv IVPUSH Q6H PRN Nausea/Vomiting Promethazine HCl 12.5 mg 01/02/21 16:50 Promethazine 25 Mg/Ml Sdv IM Q4H PRN Nausea/Vomiting Sodium Chloride 10 ml 01/02/21 14:54 01/02/21 15:10 Sodium Chloride 0.9% 10 Ml Syringe FLUSH 10 ml ASDIRECTED PRN Administration Keep Vein Open Sodium Chloride 2.5 ml 01/02/21 14:54 01/02/21 15:10 Sodium Chloride 0.9% 2.5 Ml Syringe FLUSH 2.5 ml ASDIRECTED PRN Administration Keep Vein Open Discontinued Medications Generic Name Dose Route Start Last Admin Trade Name Freq PRN Reason Stop Dose Admin Sodium Chloride 1,000 mls @ 999 mls/hr 01/02/21 14:54 01/02/21 15:10 Normal Saline IV 01/02/21 15:54 999 mls/hr BOLUS ONE Administration Sodium Chloride 1,000 mls @ 999 mls/hr 01/02/21 16:36 01/02/21 17:04 Normal Saline IV 01/02/21 17:36 999 mls/hr .BOLUS ONE Administration Ceftriaxone Sodium 2,000 mg/ 5 mls @ 10 mls/hr 01/02/21 17:00 01/02/21 18:43 Sterile Water IV 01/07/21 17:01 Not Given Q24H [facility] Non-Formulary Medication 1 dose 01/02/21 17:00 Subcutaneous Insulin Pump [Insulin Pump] SQ ASDIRECTED [facility] Ondansetron HCl 4 mg 01/02/21 14:54 01/02/21 15:11 Ondansetron 4 Mg/2 Ml Sdv IVPUSH 01/02/21 14:55 4 mg ONETIME ONE Administration Ondansetron HCl 4 mg 01/02/21 16:36 01/02/21 17:04 Ondansetron 4 Mg/2 Ml Sdv IVPUSH 01/02/21 16:37 4 mg ONETIME ONE Administration Ondansetron HCl 4 mg 01/02/21 16:54 Ondansetron 4 Mg Tab.Dis PO Q4H PRN nausea, able to take PO Departure - Departure Time of Disposition: 16:54 Disposition: Refer to Observation Condition: Good Clinical Impression: Hyperglycemia, Gastroenteritis - Discharge Information *PRESCRIPTION DRUG MONITORING PROGRAM REVIEWED*: Not Applicable *COPY OF PRESCRIPTION DRUG MONITORING REPORT IN PATIENT EVELYNE: Not Applicable Sepsis Event Note (ED) - Focused Exam Vital Signs: Vital Signs Temp Pulse Resp BP Pulse Ox 01/02/21 16:44 77 18 115/68 97 01/02/21 15:46 77 17 114/72 94 L 01/02/21 14:40 97.1 F 87 16 105/67 98 - My Orders Last 24 Hours: My Active Orders 01/02/21 14:54 Sodium Chloride 0.9% [Saline Flush] 10 ml FLUSH ASDIRECTED PRN Sodium Chloride 0.9% [Saline Flush] 2.5 ml FLUSH ASDIRECTED PRN Saline Lock Insert [OM.PC] Stat - Assessment/Plan Last 24 Hours: My Active Orders 01/02/21 14:54 Sodium Chloride 0.9% [Saline Flush] 10 ml FLUSH ASDIRECTED PRN Sodium Chloride 0.9% [Saline Flush] 2.5 ml FLUSH ASDIRECTED PRN Saline Lock Insert [OM.PC] Stat
[2021-01-02 15:36] LABS: POTASSIUM,K 4.6 mmol/L (3.5-5.1)
[2021-01-02] MEDS ORDERED: Ondansetron 4 MG Tab.DIS PO PRN ×2 (16:50→16:54)
[2021-01-02] MEDS ORDERED: Promethazine 25 MG/ML SDV IM PRN (16:50)
[2021-01-02] MEDS ORDERED: Ondansetron 4 MG/2 ML SDV IVPUSH PRN (16:54)
--- NOTE | 2021-01-02 16:58 | PCM.HP.2 ---
H&P History of Present Illness - General Date of Service: 01/02/21 Admit Problem/Dx: Admission Diagnosis/Problem Admission Diagnosis/Problem Nausea and vomiting - History of Present Illness Initial Comments - Free Text/Narative: Jacqueline Richards is a 30-year-old female with a history of type 1 diabetes who presents to the emergency department with complaints of lightheadedness and dizziness after 2-3 days of nausea, vomiting, poor oral intake and abdominal pain. The pain is a 4/10 generalized dull ache. She denies having had any diarrhea. She has also had elevated blood sugars over the past couple of days despite using her insulin pump. In the ED her blood glucose was over 400mg/dl. She was concerned that she may be going into DKA so she decided to come to the ED. Her blood work in the ED did not show any evidence of DKA but rather hyperglycemia with a metabolic alkalosis. She was given some IVF's in the ED and at the time of my interview she was feeling a lot better. She denied having any fevers or chills. She also denied having any urinary symptoms such as dysuria, frequency, urgency or hematuria. She did say that she was starting her menstrual period. Her Covid 19 test today in the ED today was negative. She denies being in close proximity to any one diagnosed with Covid 19 during the past week. 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: 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 Musculoskeletal History: Reports: None Neurological History: Reports: Migraines Psychiatric History: Reports: Anxiety, Depression Endocrine/Metabolic History: Reports: Diabetes, Type I, Hyperthyroidism 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: [employer] Hematologic History: Reports: None Immunologic History: Reports: None Oncologic (Cancer) History: Reports: None Dermatologic History: Reports: None - Infectious Disease History Infectious Disease History: Reports: Chicken Pox - Past Surgical History Head Surgeries/Procedures: Reports: None Respiratory Surgical History: Reports: None Other Respiratory Surgeries/Procedures: not taking inhaler for some time now Female Surgical History: Reports: Dilitation & Evacuation Endocrine Surgical History: Reports: Other (See Below) Other Endocrine Surgeries/Procedures: Patient has an insulin pump, hx partial thyroidectomy Musculoskeletal Surgical History: Reports: Other (See Below) Other Musculoskeletal Surgeries/Procedures:: right knee surgery and right leg extraction Dermatological Surgical History: Reports: Other (See Below) Social & Family History - Family History Family Medical History: No Pertinent Family History - Tobacco Use Tobacco Use Status *Q: Never Tobacco User Second Hand Smoke Exposure: No - Caffeine Use Caffeine Use: Reports: Coffee Other Caffeine Use: 1-2 cups per day - Recreational Drug Use Recreational Drug Use: Yes Drug Use in Last 12 Months: Yes Recreational Drug Type: Reports: Marijuana/Hashish Recreational Drug Use Frequency: Socially H&P Review of Systems - Review of Systems: Review Of Systems: Comprehensive ROS is negative, except as noted in HPI. Exam - Exam Exam: See Below - Vital Signs Vital Signs: Last Vital Signs Temp 97.1 F 01/02/21 14:40 Pulse 77 01/02/21 16:44 Resp 18 01/02/21 16:44 BP 115/68 01/02/21 16:44 Pulse Ox 97 01/02/21 16:44 Weight: 135 lb - Exam Physical Exam Comments:: General: Young female in no acute distress. CVS: S1S2 appreciated. RRR lungs: clear bilaterally with a no rales or wheezes. PA: soft, non tender. bowel sounds present Ext: no clubbing, cyanosis or edema Neuro: moves all extremities. sensation is intact. psych: Stable mood and affect. - Patient Data Lab Results Last 24 hrs: Laboratory Results - last 24 hr 01/02/21 01/02/21 01/02/21 Range/Units 14:47 14:51 15:00 WBC (4.0-11.0) K/uL RBC (4.30-5.90) M/uL Hgb (12.0-16.0) g/dL Hct (36.0-46.0) % MCV (80.0-98.0) fL MCH (27.0-32.0) pg MCHC (31.0-37.0) g/dL RDW Std Deviation (28.0-62.0) fl RDW Coeff of Thomas (11.0-15.0) % Plt Count (150-400) K/uL MPV (7.40-12.00) fL Neut % (Auto) (48.0-80.0) % Lymph % (Auto) (16.0-40.0) % [place] % (Auto) (0.0-15.0) % Eos % (Auto) (0.0-7.0) % Baso % (Auto) (0.0-1.5) % Neut # (Auto) (1.4-5.7) K/uL Lymph # (Auto) (0.6-2.4) K/uL [place] # (Auto) (0.0-0.8) K/uL Eos # (Auto) (0.0-0.7) K/uL Baso # (Auto) (0.0-0.1) K/uL Nucleated RBC % /100WBC Nucleated RBCs # K/uL Sodium (136-145) mmol/L Potassium (3.5-5.1) mmol/L Chloride (98-107) mmol/L Carbon Dioxide (21.0-32.0) mmol/L BUN (7.0-18.0) mg/dL Creatinine (0.6-1.0) mg/dL Est Cr Clr Drug Dosing mL/min Estimated GFR (MDRD) ml/min Glucose (74-106) mg/dL POC Glucose 338 H (70-99) mg/dL Calcium (8.5-10.1) mg/dL Total Bilirubin (0.2-1.0) mg/dL AST (15-37) IU/L ALT (14-63) IU/L Alkaline Phosphatase (46-116) U/L Total Protein (6.4-8.2) g/dL Albumin (3.4-5.0) g/dL Globulin (2.6-4.0) g/dL Albumin/Globulin Ratio (0.9-1.6) Urine Color YELLOW Urine Appearance CLOUDY Urine pH 7.0 (5.0-8.0) Ur Specific [place] 1.020 (1.001-1.035) Urine Protein 100 H (NEGATIVE) mg/dL Urine Glucose (UA) >=1000 (NEGATIVE) mg/dL Urine Ketones TRACE H (NEGATIVE) mg/dL Urine Occult Blood LARGE H (NEGATIVE) Urine Nitrite NEGATIVE (NEGATIVE) Urine Bilirubin SMALL H (NEGATIVE) Urine Urobilinogen 1.0 (<2.0) EU/dL Ur Leukocyte Esterase TRACE H (NEGATIVE) Urine RBC 15-20 (0-2/HPF) Urine WBC 40-50 (0-5/HPF) Ur Epithelial Cells MODERATE (NONE-FEW) Urine Bacteria 1+ H (NEGATIVE) Urine HCG, Qual (NEGATIVE) Ketones (NEG) SARS-CoV-2 RNA (ISABEL) NEGATIVE (NEGATIVE) 01/02/21 01/02/21 01/02/21 Range/Units 15:00 15:05 15:05 WBC 8.57 (4.0-11.0) K/uL RBC 4.87 (4.30-5.90) M/uL Hgb 13.8 (12.0-16.0) g/dL Hct 40.7 (36.0-46.0) % MCV 83.6 (80.0-98.0) fL MCH 28.3 (27.0-32.0) pg MCHC 33.9 (31.0-37.0) g/dL RDW Std Deviation 39.4 (28.0-62.0) fl RDW Coeff of Thomas 13 (11.0-15.0) % Plt Count 608 H (150-400) K/uL MPV 10.30 (7.40-12.00) fL Neut % (Auto) 59.8 (48.0-80.0) % Lymph % (Auto) 31.4 (16.0-40.0) % [place] % (Auto) 6.4 (0.0-15.0) % Eos % (Auto) 1.9 (0.0-7.0) % Baso % (Auto) 0.5 (0.0-1.5) % Neut # (Auto) 5.1 (1.4-5.7) K/uL Lymph # (Auto) 2.7 H (0.6-2.4) K/uL [place] # (Auto) 0.6 (0.0-0.8) K/uL Eos # (Auto) 0.2 (0.0-0.7) K/uL Baso # (Auto) 0.0 (0.0-0.1) K/uL Nucleated RBC % 0.0 /100WBC Nucleated RBCs # 0 K/uL Sodium 135 L (136-145) mmol/L Potassium 4.6 (3.5-5.1) mmol/L Chloride 94 L (98-107) mmol/L Carbon Dioxide 33.0 H (21.0-32.0) mmol/L BUN 13 (7.0-18.0) mg/dL Creatinine 1.1 H (0.6-1.0) mg/dL Est Cr Clr Drug Dosing 62.99 mL/min Estimated GFR (MDRD) 59.1 ml/min Glucose 445 H (74-106) mg/dL POC Glucose (70-99) mg/dL Calcium 9.1 (8.5-10.1) mg/dL Total Bilirubin 0.2 (0.2-1.0) mg/dL AST 9 L (15-37) IU/L ALT 17 (14-63) IU/L Alkaline Phosphatase 197 H (46-116) U/L Total Protein 8.6 H (6.4-8.2) g/dL Albumin 3.4 (3.4-5.0) g/dL Globulin 5.2 H (2.6-4.0) g/dL Albumin/Globulin Ratio 0.7 L (0.9-1.6) Urine Color Urine Appearance Urine pH (5.0-8.0) Ur Specific [place] (1.001-1.035) Urine Protein (NEGATIVE) mg/dL Urine Glucose (UA) (NEGATIVE) mg/dL Urine Ketones (NEGATIVE) mg/dL Urine Occult Blood (NEGATIVE) Urine Nitrite (NEGATIVE) Urine Bilirubin (NEGATIVE) Urine Urobilinogen (<2.0) EU/dL Ur Leukocyte Esterase (NEGATIVE) Urine RBC (0-2/HPF) Urine WBC (0-5/HPF) Ur Epithelial Cells (NONE-FEW) Urine Bacteria (NEGATIVE) Urine HCG, Qual NEGATIVE (NEGATIVE) Ketones (NEG) SARS-CoV-2 RNA (ISABEL) (NEGATIVE) 01/02/21 Range/Units 15:05 WBC (4.0-11.0) K/uL RBC (4.30-5.90) M/uL Hgb (12.0-16.0) g/dL Hct (36.0-46.0) % MCV (80.0-98.0) fL MCH (27.0-32.0) pg MCHC (31.0-37.0) g/dL RDW Std Deviation (28.0-62.0) fl RDW Coeff of Thomas (11.0-15.0) % Plt Count (150-400) K/uL MPV (7.40-12.00) fL Neut % (Auto) (48.0-80.0) % Lymph % (Auto) (16.0-40.0) % [place] % (Auto) (0.0-15.0) % Eos % (Auto) (0.0-7.0) % Baso % (Auto) (0.0-1.5) % Neut # (Auto) (1.4-5.7) K/uL Lymph # (Auto) (0.6-2.4) K/uL [place] # (Auto) (0.0-0.8) K/uL Eos # (Auto) (0.0-0.7) K/uL Baso # (Auto) (0.0-0.1) K/uL Nucleated RBC % /100WBC Nucleated RBCs # K/uL Sodium (136-145) mmol/L Potassium (3.5-5.1) mmol/L Chloride (98-107) mmol/L Carbon Dioxide (21.0-32.0) mmol/L BUN (7.0-18.0) mg/dL Creatinine (0.6-1.0) mg/dL Est Cr Clr Drug Dosing mL/min Estimated GFR (MDRD) ml/min Glucose (74-106) mg/dL POC Glucose (70-99) mg/dL Calcium (8.5-10.1) mg/dL Total Bilirubin (0.2-1.0) mg/dL AST (15-37) IU/L ALT (14-63) IU/L Alkaline Phosphatase (46-116) U/L Total Protein (6.4-8.2) g/dL Albumin (3.4-5.0) g/dL Globulin (2.6-4.0) g/dL Albumin/Globulin Ratio (0.9-1.6) Urine Color Urine Appearance Urine pH (5.0-8.0) Ur Specific [place] (1.001-1.035) Urine Protein (NEGATIVE) mg/dL Urine Glucose (UA) (NEGATIVE) mg/dL Urine Ketones (NEGATIVE) mg/dL Urine Occult Blood (NEGATIVE) Urine Nitrite (NEGATIVE) Urine Bilirubin (NEGATIVE) Urine Urobilinogen (<2.0) EU/dL Ur Leukocyte Esterase (NEGATIVE) Urine RBC (0-2/HPF) Urine WBC (0-5/HPF) Ur Epithelial Cells (NONE-FEW) Urine Bacteria (NEGATIVE) Urine HCG, Qual (NEGATIVE) Ketones NEGATIVE (NEG) SARS-CoV-2 RNA (ISABEL) (NEGATIVE) Result Diagrams: 01/02/21 15:05 01/02/21 15:05 Gabriel Results Last 24 hrs: Microbiology 01/02/21 14:47 Influenza Type A Antigen Screen - Final Nasopharyngeal Swab NEGATIVE INFLUENZA A VIRUS AG REFERENCE RANGE: NEGATIVE Influenza Type B Antigen Screen - Final NEGATIVE INFLUENZA B VIRUS AG REFERENCE RANGE: NEGATIVE Sepsis Event Note - Focused Exam Vital Signs: Vital Signs Temp Pulse Resp BP Pulse Ox 01/02/21 16:44 77 18 115/68 97 01/02/21 15:46 77 17 114/72 94 L 01/02/21 14:40 97.1 F 87 16 105/67 98 - Problem List (1) Nausea and vomiting SNOMED Code(s): 74650421 ICD Code: R11.2 - NAUSEA WITH VOMITING, UNSPECIFIED Status: Acute Current Visit: Yes (2) Gastroenteritis SNOMED Code(s): 90079830 ICD Code: K52.9 - NONINFECTIVE GASTROENTERITIS AND COLITIS, UNSPECIFIED Status: Acute Current Visit: Yes (3) T1DM (type 1 diabetes mellitus) SNOMED Code(s): 96241813 ICD Code: E10.9 - TYPE 1 DIABETES MELLITUS WITHOUT COMPLICATIONS Status: Acute Current Visit: Yes (4) Full code status SNOMED Code(s): 925838147 ICD Code: Z78.9 - OTHER SPECIFIED HEALTH STATUS Status: Acute Current Visit: Yes (5) UTI (urinary tract infection) SNOMED Code(s): 20466465 ICD Code: N39.0 - URINARY TRACT INFECTION, SITE NOT SPECIFIED Status: Acute Current Visit: Yes (6) Dehydration SNOMED Code(s): 08472763 ICD Code: E86.0 - DEHYDRATION Status: Acute Current Visit: Yes (7) Hyperglycemia SNOMED Code(s): 90640925 ICD Code: R73.9 - HYPERGLYCEMIA, UNSPECIFIED Status: Acute Current Visit: Yes Problem List Initiated/Reviewed/Updated: Yes Orders Last 24hrs: Active Orders 24 hr Category Date Time Status Patient Status [ADT] Routine ADT 01/02/21 16:50 Ordered Blood Glucose Check, Bedside [RC] ONETIME Care 01/02/21 14:54 Active Blood Glucose Check, Bedside [RC] QIDACANDBED Care 01/02/21 16:50 Ordered Oxygen Therapy [RC] PRN Care 01/02/21 16:50 Ordered Up ad Catherine [RC] ASDIRECTED Care 01/02/21 16:50 Ordered VTE/DVT Education [RC] PER UNIT ROUTINE Care 01/02/21 16:50 Ordered Vital Signs [RC] Q4H Care 01/02/21 16:50 Ordered Clear Liquid Diet [DIET] Diet 01/03/21 Breakfast Ordered BASIC METABOLIC PANEL,BMP [CHEM] AM Lab 01/03/21 05:11 Ordered CBC WITH AUTO DIFF [HEME] AM Lab 01/03/21 05:11 Ordered Acetaminophen [TylenoL] Med 01/02/21 16:50 Ordered 650 mg PO Q4H PRN Heparin Sodium Med 01/02/21 17:00 Ordered 5,000 units SUBCUT Q12H Ondansetron [Zofran ODT] Med 01/02/21 16:50 Ordered 4 mg PO Q4H PRN Ondansetron [Zofran ODT] Med 01/02/21 16:54 Ordered 4 mg PO Q4H PRN Ondansetron [Zofran] Med 01/02/21 16:54 Ordered 4 mg IVPUSH Q6H PRN Promethazine [Phenergan] Med 01/02/21 16:50 Ordered 12.5 mg IM Q4H PRN Sodium Chloride 0.9% @ 125 MLS/HR (1000ml) Med 01/02/21 17:00 Ordered Sodium Chloride 0.9% [Normal Saline] 1,000 ml IV ASDIRECTED Sodium Chloride 0.9% [Normal Saline] 1,000 ml Med 01/02/21 16:36 Active IV .BOLUS Sodium Chloride 0.9% [Saline Flush] Med 01/02/21 14:54 Active 10 ml FLUSH ASDIRECTED PRN Sodium Chloride 0.9% [Saline Flush] Med 01/02/21 14:54 Active 2.5 ml FLUSH ASDIRECTED PRN cefTRIAXone [Rocephin] 2,000 mg Med 01/02/21 17:00 Ordered Water For Injection, Sterile [Sterile Water for Injection] 5 ml IV Q24H Saline Lock Insert [OM.PC] Stat Oth 01/02/21 14:54 Ordered Resuscitation Status Routine Resus Stat 01/02/21 16:50 Ordered Medication Orders Sodium Chloride (Normal Saline) 1,000 mls @ 999 mls/hr IV .BOLUS ONE Stop: 01/02/21 17:36 Sodium Chloride (Sodium Chloride 0.9% 10 Ml Syringe) 10 ml FLUSH ASDIRECTED PRN PRN Reason: Keep Vein Open Last Admin: 01/02/21 15:10 Dose: 10 ml Documented by: OK Sodium Chloride (Sodium Chloride 0.9% 2.5 Ml Syringe) 2.5 ml FLUSH ASDIRECTED PRN PRN Reason: Keep Vein Open Last Admin: 01/02/21 15:10 Dose: 2.5 ml Documented by: OK Assessment/Plan Comment:: Hyperglycemia not in DKA Admit pt to medical floor for hydration Continue with the home insulin pump SSI coverage Q 4hrs npo except for ice chips until blood glucose is under 150. Dehydration Aggressive hydration Nausea and vomiting Treat the hyperglycemia anti nausea medications T1DM Full code status Disposition Pt may be able to go home tomorrow.
[2021-01-02] MEDS ORDERED: STERILE IV SCH (17:00)
[2021-01-02] MEDS ORDERED: WATER FOR INJECTION IV SCH (17:00)
[2021-01-02] MEDS ORDERED: CEFTRIAXONE IV SCH (17:00)
[2021-01-02] MEDS ORDERED: SUBCUTANEOUS INSULIN PUMP SQ SCH (17:00)
[2021-01-02] MEDS ORDERED: Glucagon,Human Recombinant 1 MG Vial IM PRN ×2 (17:01→21:30)
[2021-01-02] MEDS ORDERED: 50% Dextrose in Water 50 ML Syringe IVPUSH PRN ×2 (17:01→21:30)
[2021-01-02] MEDS ORDERED: cefTRIAXone 2 GM/50 ML BAG IV SCH (18:00)
[2021-01-02] MEDS: Heparin Sodium 5,000 Units/ML Vial SUBCUT SCH (18:59)
[2021-01-02] MEDS: Sodium Chloride 0.9% 1,000 ML IV SCH ×2 (19:26→23:24)
[2021-01-02] MEDS: Acetaminophen 325 MG Tab PO PRN (21:18)
[2021-01-02] MEDS ORDERED: Sodium Chloride 0.9% 1,000 ML IV SCH (21:30)
[2021-01-02] MEDS ORDERED: Insulin Aspart 100 Units/ML 3 ML Pen SUBCUT STA (21:30)
[2021-01-02] MEDS: Sodium Chloride 0.9% 2,000 ML IV ONE ×2 (21:38→22:20)
[2021-01-02] MEDS: Insulin Aspart 100 Units/ML 3 ML Pen SUBCUT SCH (21:40)
[2021-01-03] MEDS: Insulin Aspart 100 Units/ML 3 ML Pen SUBCUT SCH ×4 (00:09→12:03)
[2021-01-03] MEDS: Heparin Sodium 5,000 Units/ML Vial SUBCUT SCH (05:01)
[2021-01-03] MEDS: Acetaminophen 325 MG Tab PO PRN ×2 (06:43→12:31)
[2021-01-03 07:37] LABS: BLOOD UREA NITROGEN,BUN 9 mg/dL (7.0-18.0); CARBON DIOXIDE,CO2 27.6 mmol/L (21.0-32.0); CHLORIDE,CL 106 mmol/L (98-107); GLUCOSE RANDOM 158 mg/dL (74-106); POTASSIUM,K 4.1 mmol/L (3.5-5.1); SODIUM,NA 144 mmol/L (136-145)
[2021-01-03 13:01] VITALS: BP 136/79; PULSE 73
--- NOTE | 2021-01-03 15:04 | PCM.DCSUM1 ---
Discharge Summary - Discharge Data Discharge Date: 01/03/21 Discharge Disposition: Home, Self-Care 01 Condition: Good - Referral to Home Health Primary Care Physician: Edison Arriola MD - Patient Summary/Data Hospital Course: PAtient is a a 30-year-old female with a history of type 1 diabetes who presents to the emergency department with complaints of lightheadedness and dizziness after 2-3 days of nausea, vomiting, poor oral intake and abdominal pain. She was noted to have elevated blood glucose of over 400 and patient was concerned she was developing diabetic ketoacidosis. Her bicarb was elevated on admission. She was treated with IV fluids and her symptoms resolved. She feels ready for discharge home today with the resumption of her insulin pump. - Patient Instructions Diet: Diabetic Diet Activity: As Tolerated Notify Provider of: Fever, Increased Pain, Nausea and/or Vomiting - Discharge Plan *PRESCRIPTION DRUG MONITORING PROGRAM REVIEWED*: Not Applicable *COPY OF PRESCRIPTION DRUG MONITORING REPORT IN PATIENT EVELYNE: Not Applicable Home Medications: Home Meds Subcutaneous Insulin Pump [Insulin Pump] 1 dose SQ ASDIRECTED 06/10/14 [History] Insulin Aspart [NovoLOG] 0 unit SUBCUT WITHMEALSANDBED #1 box 01/23/19 [Rx] Forms: ED Department Discharge Referrals: Edison Arriola MD [Primary Care Provider] - - Discharge Summary/Plan Comment DC Time >30 min.: No Total # of Minutes for Discharge Time: 15 - Patient Data Vitals - Most Recent: Last Vital Signs Temp 36.0 C L 01/03/21 12:00 Pulse 73 01/03/21 12:00 Resp 16 01/03/21 12:00 BP 136/79 01/03/21 12:00 Pulse Ox 95 01/03/21 12:00 Weight - Most Recent: 55.293 kg I&O - Last 24 hours: Intake & Output 01/03/21 01/03/21 01/03/21 06:59 14:59 22:59 Intake Total 3441 Output Total 1000 Balance 2441 Lab Results - Last 24 hrs: Laboratory Results - last 24 hr 01/02/21 01/02/21 01/02/21 Range/Units 14:47 14:51 15:00 WBC (4.0-11.0) K/uL RBC (4.30-5.90) M/uL Hgb (12.0-16.0) g/dL Hct (36.0-46.0) % MCV (80.0-98.0) fL MCH (27.0-32.0) pg MCHC (31.0-37.0) g/dL RDW Std Deviation (28.0-62.0) fl RDW Coeff of Thomas (11.0-15.0) % Plt Count (150-400) K/uL MPV (7.40-12.00) fL Neut % (Auto) (48.0-80.0) % Lymph % (Auto) (16.0-40.0) % [place] % (Auto) (0.0-15.0) % Eos % (Auto) (0.0-7.0) % Baso % (Auto) (0.0-1.5) % Neut # (Auto) (1.4-5.7) K/uL Lymph # (Auto) (0.6-2.4) K/uL [place] # (Auto) (0.0-0.8) K/uL Eos # (Auto) (0.0-0.7) K/uL Baso # (Auto) (0.0-0.1) K/uL Add Manual Diff Neutrophils % (Manual) (48.0-80.0) % Lymphocytes % (Manual) (16.0-40.0) % Monocytes % (Manual) (0.0-15.0) % Eosinophils % (Manual) (0.0-7.0) % Basophils % (Manual) (0.0-1.5) % Nucleated RBC % /100WBC Absolute Seg Neuts (1.4-5.7) Lymphocytes # (Manual) (0.6-2.4) Monocytes # (Manual) (0.0-0.8) Eosinophils # (Manual) (0.0-0.7) Basophils # (Manual) (0.0-0.1) Nucleated RBCs # K/uL Sodium (136-145) mmol/L Potassium (3.5-5.1) mmol/L Chloride (98-107) mmol/L Carbon Dioxide (21.0-32.0) mmol/L BUN (7.0-18.0) mg/dL Creatinine (0.6-1.0) mg/dL Est Cr Clr Drug Dosing mL/min Estimated GFR (MDRD) ml/min Glucose (74-106) mg/dL POC Glucose 338 H (70-99) mg/dL Calcium (8.5-10.1) mg/dL Total Bilirubin (0.2-1.0) mg/dL AST (15-37) IU/L ALT (14-63) IU/L Alkaline Phosphatase (46-116) U/L Total Protein (6.4-8.2) g/dL Albumin (3.4-5.0) g/dL Globulin (2.6-4.0) g/dL Albumin/Globulin Ratio (0.9-1.6) Urine Color YELLOW Urine Appearance CLOUDY Urine pH 7.0 (5.0-8.0) Ur Specific Sandwich 1.020 (1.001-1.035) Urine Protein 100 H (NEGATIVE) mg/dL Urine Glucose (UA) >=1000 (NEGATIVE) mg/dL Urine Ketones TRACE H (NEGATIVE) mg/dL Urine Occult Blood LARGE H (NEGATIVE) Urine Nitrite NEGATIVE (NEGATIVE) Urine Bilirubin SMALL H (NEGATIVE) Urine Urobilinogen 1.0 (<2.0) EU/dL Ur Leukocyte Esterase TRACE H (NEGATIVE) Urine RBC 15-20 (0-2/HPF) Urine WBC 40-50 (0-5/HPF) Ur Epithelial Cells MODERATE (NONE-FEW) Urine Bacteria 1+ H (NEGATIVE) Urine HCG, Qual (NEGATIVE) Ketones (NEG) SARS-CoV-2 RNA (ISABEL) NEGATIVE (NEGATIVE) 01/02/21 01/02/21 01/02/21 Range/Units 15:00 15:05 15:05 WBC 8.57 (4.0-11.0) K/uL RBC 4.87 (4.30-5.90) M/uL Hgb 13.8 (12.0-16.0) g/dL Hct 40.7 (36.0-46.0) % MCV 83.6 (80.0-98.0) fL MCH 28.3 (27.0-32.0) pg MCHC 33.9 (31.0-37.0) g/dL RDW Std Deviation 39.4 (28.0-62.0) fl RDW Coeff of Thomas 13 (11.0-15.0) % Plt Count 608 H (150-400) K/uL MPV 10.30 (7.40-12.00) fL Neut % (Auto) 59.8 (48.0-80.0) % Lymph % (Auto) 31.4 (16.0-40.0) % [place] % (Auto) 6.4 (0.0-15.0) % Eos % (Auto) 1.9 (0.0-7.0) % Baso % (Auto) 0.5 (0.0-1.5) % Neut # (Auto) 5.1 (1.4-5.7) K/uL Lymph # (Auto) 2.7 H (0.6-2.4) K/uL [place] # (Auto) 0.6 (0.0-0.8) K/uL Eos # (Auto) 0.2 (0.0-0.7) K/uL Baso # (Auto) 0.0 (0.0-0.1) K/uL Add Manual Diff Neutrophils % (Manual) (48.0-80.0) % Lymphocytes % (Manual) (16.0-40.0) % Monocytes % (Manual) (0.0-15.0) % Eosinophils % (Manual) (0.0-7.0) % Basophils % (Manual) (0.0-1.5) % Nucleated RBC % 0.0 /100WBC Absolute Seg Neuts (1.4-5.7) Lymphocytes # (Manual) (0.6-2.4) Monocytes # (Manual) (0.0-0.8) Eosinophils # (Manual) (0.0-0.7) Basophils # (Manual) (0.0-0.1) Nucleated RBCs # 0 K/uL Sodium 135 L (136-145) mmol/L Potassium 4.6 (3.5-5.1) mmol/L Chloride 94 L (98-107) mmol/L Carbon Dioxide 33.0 H (21.0-32.0) mmol/L BUN 13 (7.0-18.0) mg/dL Creatinine 1.1 H (0.6-1.0) mg/dL Est Cr Clr Drug Dosing 62.99 mL/min Estimated GFR (MDRD) 59.1 ml/min Glucose 445 H (74-106) mg/dL POC Glucose (70-99) mg/dL Calcium 9.1 (8.5-10.1) mg/dL Total Bilirubin 0.2 (0.2-1.0) mg/dL AST 9 L (15-37) IU/L ALT 17 (14-63) IU/L Alkaline Phosphatase 197 H (46-116) U/L Total Protein 8.6 H (6.4-8.2) g/dL Albumin 3.4 (3.4-5.0) g/dL Globulin 5.2 H (2.6-4.0) g/dL Albumin/Globulin Ratio 0.7 L (0.9-1.6) Urine Color Urine Appearance Urine pH (5.0-8.0) Ur Specific Sandwich (1.001-1.035) Urine Protein (NEGATIVE) mg/dL Urine Glucose (UA) (NEGATIVE) mg/dL Urine Ketones (NEGATIVE) mg/dL Urine Occult Blood (NEGATIVE) Urine Nitrite (NEGATIVE) Urine Bilirubin (NEGATIVE) Urine Urobilinogen (<2.0) EU/dL Ur Leukocyte Esterase (NEGATIVE) Urine RBC (0-2/HPF) Urine WBC (0-5/HPF) Ur Epithelial Cells (NONE-FEW) Urine Bacteria (NEGATIVE) Urine HCG, Qual NEGATIVE (NEGATIVE) Ketones (NEG) SARS-CoV-2 RNA (ISABEL) (NEGATIVE) 01/02/21 01/02/21 01/03/21 Range/Units 15:05 20:02 00:01 WBC (4.0-11.0) K/uL RBC (4.30-5.90) M/uL Hgb (12.0-16.0) g/dL Hct (36.0-46.0) % MCV (80.0-98.0) fL MCH (27.0-32.0) pg MCHC (31.0-37.0) g/dL RDW Std Deviation (28.0-62.0) fl RDW Coeff of Thomas (11.0-15.0) % Plt Count (150-400) K/uL MPV (7.40-12.00) fL Neut % (Auto) (48.0-80.0) % Lymph % (Auto) (16.0-40.0) % [place] % (Auto) (0.0-15.0) % Eos % (Auto) (0.0-7.0) % Baso % (Auto) (0.0-1.5) % Neut # (Auto) (1.4-5.7) K/uL Lymph # (Auto) (0.6-2.4) K/uL [place] # (Auto) (0.0-0.8) K/uL Eos # (Auto) (0.0-0.7) K/uL Baso # (Auto) (0.0-0.1) K/uL Add Manual Diff Neutrophils % (Manual) (48.0-80.0) % Lymphocytes % (Manual) (16.0-40.0) % Monocytes % (Manual) (0.0-15.0) % Eosinophils % (Manual) (0.0-7.0) % Basophils % (Manual) (0.0-1.5) % Nucleated RBC % /100WBC Absolute Seg Neuts (1.4-5.7) Lymphocytes # (Manual) (0.6-2.4) Monocytes # (Manual) (0.0-0.8) Eosinophils # (Manual) (0.0-0.7) Basophils # (Manual) (0.0-0.1) Nucleated RBCs # K/uL Sodium (136-145) mmol/L Potassium (3.5-5.1) mmol/L Chloride (98-107) mmol/L Carbon Dioxide (21.0-32.0) mmol/L BUN (7.0-18.0) mg/dL Creatinine (0.6-1.0) mg/dL Est Cr Clr Drug Dosing mL/min Estimated GFR (MDRD) ml/min Glucose (74-106) mg/dL POC Glucose 410 H* 172 H (70-99) mg/dL Calcium (8.5-10.1) mg/dL Total Bilirubin (0.2-1.0) mg/dL AST (15-37) IU/L ALT (14-63) IU/L Alkaline Phosphatase (46-116) U/L Total Protein (6.4-8.2) g/dL Albumin (3.4-5.0) g/dL Globulin (2.6-4.0) g/dL Albumin/Globulin Ratio (0.9-1.6) Urine Color Urine Appearance Urine pH (5.0-8.0) Ur Specific Sandwich (1.001-1.035) Urine Protein (NEGATIVE) mg/dL Urine Glucose (UA) (NEGATIVE) mg/dL Urine Ketones (NEGATIVE) mg/dL Urine Occult Blood (NEGATIVE) Urine Nitrite (NEGATIVE) Urine Bilirubin (NEGATIVE) Urine Urobilinogen (<2.0) EU/dL Ur Leukocyte Esterase (NEGATIVE) Urine RBC (0-2/HPF) Urine WBC (0-5/HPF) Ur Epithelial Cells (NONE-FEW) Urine Bacteria (NEGATIVE) Urine HCG, Qual (NEGATIVE) Ketones NEGATIVE (NEG) SARS-CoV-2 RNA (ISABEL) (NEGATIVE) 01/03/21 01/03/21 01/03/21 Range/Units 03:53 06:10 06:10 WBC 11.93 H (4.0-11.0) K/uL RBC 4.33 (4.30-5.90) M/uL Hgb 12.1 (12.0-16.0) g/dL Hct 36.2 (36.0-46.0) % MCV 83.6 (80.0-98.0) fL MCH 27.9 (27.0-32.0) pg MCHC 33.4 (31.0-37.0) g/dL RDW Std Deviation 40.7 (28.0-62.0) fl RDW Coeff of Thomas 14 (11.0-15.0) % Plt Count 548 H (150-400) K/uL MPV 11.00 (7.40-12.00) fL Neut % (Auto) (48.0-80.0) % Lymph % (Auto) (16.0-40.0) % [place] % (Auto) (0.0-15.0) % Eos % (Auto) (0.0-7.0) % Baso % (Auto) (0.0-1.5) % Neut # (Auto) (1.4-5.7) K/uL Lymph # (Auto) (0.6-2.4) K/uL [place] # (Auto) (0.0-0.8) K/uL Eos # (Auto) (0.0-0.7) K/uL Baso # (Auto) (0.0-0.1) K/uL Add Manual Diff YES Neutrophils % (Manual) 42 L (48.0-80.0) % Lymphocytes % (Manual) 49 H (16.0-40.0) % Monocytes % (Manual) 4 (0.0-15.0) % Eosinophils % (Manual) 4 (0.0-7.0) % Basophils % (Manual) 1 (0.0-1.5) % Nucleated RBC % 0.0 /100WBC Absolute Seg Neuts 5.0 (1.4-5.7) Lymphocytes # (Manual) 5.8 H (0.6-2.4) Monocytes # (Manual) 0.5 (0.0-0.8) Eosinophils # (Manual) 0.5 (0.0-0.7) Basophils # (Manual) 0.1 (0.0-0.1) Nucleated RBCs # 0 K/uL Sodium 144 (136-145) mmol/L Potassium 4.1 (3.5-5.1) mmol/L Chloride 106 (98-107) mmol/L Carbon Dioxide 27.6 (21.0-32.0) mmol/L BUN 9 (7.0-18.0) mg/dL Creatinine 0.7 (0.6-1.0) mg/dL Est Cr Clr Drug Dosing 98.98 mL/min Estimated GFR (MDRD) > 60.0 ml/min Glucose 158 H (74-106) mg/dL POC Glucose 149 H (70-99) mg/dL Calcium 7.8 L (8.5-10.1) mg/dL Total Bilirubin (0.2-1.0) mg/dL AST (15-37) IU/L ALT (14-63) IU/L Alkaline Phosphatase (46-116) U/L Total Protein (6.4-8.2) g/dL Albumin (3.4-5.0) g/dL Globulin (2.6-4.0) g/dL Albumin/Globulin Ratio (0.9-1.6) Urine Color Urine Appearance Urine pH (5.0-8.0) Ur Specific Sandwich (1.001-1.035) Urine Protein (NEGATIVE) mg/dL Urine Glucose (UA) (NEGATIVE) mg/dL Urine Ketones (NEGATIVE) mg/dL Urine Occult Blood (NEGATIVE) Urine Nitrite (NEGATIVE) Urine Bilirubin (NEGATIVE) Urine Urobilinogen (<2.0) EU/dL Ur Leukocyte Esterase (NEGATIVE) Urine RBC (0-2/HPF) Urine WBC (0-5/HPF) Ur Epithelial Cells (NONE-FEW) Urine Bacteria (NEGATIVE) Urine HCG, Qual (NEGATIVE) Ketones (NEG) SARS-CoV-2 RNA (ISABEL) (NEGATIVE) 01/03/21 01/03/21 01/03/21 Range/Units 07:57 09:24 12:00 WBC (4.0-11.0) K/uL RBC (4.30-5.90) M/uL Hgb (12.0-16.0) g/dL Hct (36.0-46.0) % MCV (80.0-98.0) fL MCH (27.0-32.0) pg MCHC (31.0-37.0) g/dL RDW Std Deviation (28.0-62.0) fl RDW Coeff of Thomas (11.0-15.0) % Plt Count (150-400) K/uL MPV (7.40-12.00) fL Neut % (Auto) (48.0-80.0) % Lymph % (Auto) (16.0-40.0) % [place] % (Auto) (0.0-15.0) % Eos % (Auto) (0.0-7.0) % Baso % (Auto) (0.0-1.5) % Neut # (Auto) (1.4-5.7) K/uL Lymph # (Auto) (0.6-2.4) K/uL [place] # (Auto) (0.0-0.8) K/uL Eos # (Auto) (0.0-0.7) K/uL Baso # (Auto) (0.0-0.1) K/uL Add Manual Diff Neutrophils % (Manual) (48.0-80.0) % Lymphocytes % (Manual) (16.0-40.0) % Monocytes % (Manual) (0.0-15.0) % Eosinophils % (Manual) (0.0-7.0) % Basophils % (Manual) (0.0-1.5) % Nucleated RBC % /100WBC Absolute Seg Neuts (1.4-5.7) Lymphocytes # (Manual) (0.6-2.4) Monocytes # (Manual) (0.0-0.8) Eosinophils # (Manual) (0.0-0.7) Basophils # (Manual) (0.0-0.1) Nucleated RBCs # K/uL Sodium (136-145) mmol/L Potassium (3.5-5.1) mmol/L Chloride (98-107) mmol/L Carbon Dioxide (21.0-32.0) mmol/L BUN (7.0-18.0) mg/dL Creatinine (0.6-1.0) mg/dL Est Cr Clr Drug Dosing mL/min Estimated GFR (MDRD) ml/min Glucose (74-106) mg/dL POC Glucose 166 H 318 H 256 H (70-99) mg/dL Calcium (8.5-10.1) mg/dL Total Bilirubin (0.2-1.0) mg/dL AST (15-37) IU/L ALT (14-63) IU/L Alkaline Phosphatase (46-116) U/L Total Protein (6.4-8.2) g/dL Albumin (3.4-5.0) g/dL Globulin (2.6-4.0) g/dL Albumin/Globulin Ratio (0.9-1.6) Urine Color Urine Appearance Urine pH (5.0-8.0) Ur Specific Sandwich (1.001-1.035) Urine Protein (NEGATIVE) mg/dL Urine Glucose (UA) (NEGATIVE) mg/dL Urine Ketones (NEGATIVE) mg/dL Urine Occult Blood (NEGATIVE) Urine Nitrite (NEGATIVE) Urine Bilirubin (NEGATIVE) Urine Urobilinogen (<2.0) EU/dL Ur Leukocyte Esterase (NEGATIVE) Urine RBC (0-2/HPF) Urine WBC (0-5/HPF) Ur Epithelial Cells (NONE-FEW) Urine Bacteria (NEGATIVE) Urine HCG, Qual (NEGATIVE) Ketones (NEG) SARS-CoV-2 RNA (ISABEL) (NEGATIVE) THAO Results - Last 24 hrs: Microbiology 01/02/21 14:47 Influenza Type A Antigen Screen - Final Nasopharyngeal Swab NEGATIVE INFLUENZA A VIRUS AG REFERENCE RANGE: NEGATIVE Influenza Type B Antigen Screen - Final NEGATIVE INFLUENZA B VIRUS AG REFERENCE RANGE: NEGATIVE Med Orders - Current: Current Medications Acetaminophen (Acetaminophen 325 Mg Tab) 650 mg PO Q4H PRN PRN Reason: Pain (Mild 1-3)/fever Last Admin: 01/03/21 12:31 Dose: 650 mg Documented by: Dextrose/Water (50% Dextrose In Water 50 Ml Syringe) 50 ml IVPUSH ASDIRECTED PRN PRN Reason: Hypoglycemia Glucagon (Glucagon,Human Recombinant 1 Mg Vial) 1 mg IM ASDIRECTED PRN PRN Reason: Hypoglycemia Heparin Sodium (Porcine) (Heparin Sodium 5,000 Units/Ml Vial) 5,000 units SUBCUT Q12H [facility] Last Admin: 01/03/21 05:01 Dose: 5,000 units Documented by: Sodium Chloride (Normal Saline) 1,000 mls @ 125 mls/hr IV ASDIRECTED [facility] Last Infusion: 01/02/21 23:29 Dose: 150 mls/hr Documented by: Sodium Chloride (Normal Saline) 1,000 mls @ 150 mls/hr IV ASDIRECTED [facility] Last Admin: 01/03/21 06:30 Dose: 150 mls/hr Documented by: Insulin Aspart (Insulin Aspart 100 Units/Ml 3 Ml Pen) 0 unit SUBCUT Q4HR [facility]; Protocol Last Admin: 01/03/21 12:03 Dose: 3 unit Documented by: Ondansetron HCl (Ondansetron 4 Mg Tab.Dis) 4 mg PO Q4H PRN PRN Reason: nausea, able to take PO Ondansetron HCl (Ondansetron 4 Mg/2 Ml Sdv) 4 mg IVPUSH Q6H PRN PRN Reason: Nausea/Vomiting Promethazine HCl (Promethazine 25 Mg/Ml Sdv) 12.5 mg IM Q4H PRN PRN Reason: Nausea/Vomiting Sodium Chloride (Sodium Chloride 0.9% 10 Ml Syringe) 10 ml FLUSH ASDIRECTED PRN PRN Reason: Keep Vein Open Last Admin: 01/02/21 15:10 Dose: 10 ml Documented by: Sodium Chloride (Sodium Chloride 0.9% 2.5 Ml Syringe) 2.5 ml FLUSH ASDIRECTED PRN PRN Reason: Keep Vein Open Last Admin: 01/02/21 15:10 Dose: 2.5 ml Documented by: Discontinued Medications Dextrose/Water (50% Dextrose In Water 50 Ml Syringe) 50 ml IVPUSH ASDIRECTED PRN PRN Reason: Hypoglycemia Glucagon (Glucagon,Human Recombinant 1 Mg Vial) 1 mg IM ASDIRECTED PRN PRN Reason: Hypoglycemia Sodium Chloride (Normal Saline) 1,000 mls @ 999 mls/hr IV BOLUS ONE Stop: 01/02/21 15:54 Last Admin: 01/02/21 15:10 Dose: 999 mls/hr Documented by: Sodium Chloride (Normal Saline) 1,000 mls @ 999 mls/hr IV .BOLUS ONE Stop: 01/02/21 17:36 Last Admin: 01/02/21 17:04 Dose: 999 mls/hr Documented by: Ceftriaxone Sodium 2,000 mg/ (Sterile Water) 5 mls @ 10 mls/hr IV Q24H [facility] Stop: 01/07/21 17:01 Last Admin: 01/02/21 18:43 Dose: Not Given Documented by: Ceftriaxone Sodium/Dextrose (Rocephin In Dextrose,Iso-Osm 2 Gm/50 Ml) 2 gm in 50 mls @ 100 mls/hr IV Q24H [facility] Last Admin: 01/02/21 18:29 Dose: 100 mls/hr Documented by: Sodium Chloride (Normal Saline) 2,000 mls @ 999 mls/hr IV .BOLUS ONE Stop: 01/02/21 23:17 Last Admin: 01/02/21 22:20 Dose: 999 mls/hr Documented by: Insulin Aspart (Insulin Aspart 100 Units/Ml 3 Ml Pen) 7 unit SUBCUT NOW STA Stop: 01/02/21 21:31 Last Admin: 01/02/21 21:37 Dose: 7 units Documented by: Non-Formulary Medication (Subcutaneous Insulin Pump [Insulin Pump]) 1 dose SQ ASDIRECTED [facility] Ondansetron HCl (Ondansetron 4 Mg/2 Ml Sdv) 4 mg IVPUSH ONETIME ONE Stop: 01/02/21 14:55 Last Admin: 01/02/21 15:11 Dose: 4 mg Documented by: Ondansetron HCl (Ondansetron 4 Mg/2 Ml Sdv) 4 mg IVPUSH ONETIME ONE Stop: 01/02/21 16:37 Last Admin: 01/02/21 17:04 Dose: 4 mg Documented by: Ondansetron HCl (Ondansetron 4 Mg Tab.Dis) 4 mg PO Q4H PRN PRN Reason: nausea, able to take PO
== END 2021-01-03 15:40 | disposition home or self-care (01) ==
LOC: MW.ED 13:26 → MW.MS 16:55
PROVIDERS: ADMIT Hospitalist; ATTEND Hospitalist
DX: E10.65 Type 1 diabetes mellitus with hyperglycemia (principal); F32.A Depression, unspecified; E05.90 Thyrotoxicosis, unspecified without thyrotoxic crisis or storm; N39.0 Urinary tract infection, site not specified; E86.0 Dehydration; Z20.822 Contact with and (suspected) exposure to COVID-19; Z88.1 Allergy status to other antibiotic agents; Z79.899 Other long term (current) drug therapy
CPT/HCPCS: 36415; 80048; 80053; 81001; 81025; 82009; 82947; 85025; 87635; 87804; A9270; J0696; J1644; J1815; J2405; J7030; 96365; 96372; 96375; 96376; 99285-25; G0378; U0002

== ENCOUNTER 2021-04-14 21:09 | Inpatient (IN) | payer OTHER ==
[2021-04-14 22:22] LABS: CARBON DIOXIDE,CO2 24.1 mmol/L (21.0-32.0); ESTIMATED GFR 38.4 ml/min; POTASSIUM,K 4.9 mmol/L (3.5-5.1)
[2021-04-14] MEDS ORDERED: Sodium Chloride 0.9% 1,000 ML IV STA (22:28)
[2021-04-14] MEDS ORDERED: Sodium Chloride 0.9% 1,000 ML IV ONE ×2 (22:33)
[2021-04-14] MEDS ORDERED: Insulin Regular, Human 100 Units/ML 10 ML Vial IVPUSH ONE (22:34)
[2021-04-14] MEDS ORDERED: Glucagon,Human Recombinant 1 MG Vial IM PRN (22:34)
[2021-04-14] MEDS ORDERED: 50% Dextrose in Water 50 ML Syringe IVPUSH PRN (22:34)
[2021-04-14] MEDS ORDERED: Acetaminophen 325 MG Tab PO ONE (23:22)
[2021-04-15 00:24] LABS: CARBON DIOXIDE,CO2 23.5 mmol/L (21.0-32.0); ESTIMATED GFR 48.8 ml/min; POTASSIUM,K 4.5 mmol/L (3.5-5.1)
[2021-04-15] MEDS ORDERED: 50% Dextrose in Water 50 ML Syringe IVPUSH PRN ×2 (00:48→04:10)
[2021-04-15] MEDS ORDERED: Insulin Regular, Human 100 Units/ML 10 ML Vial IVPUSH ONE (00:48)
[2021-04-15] MEDS ORDERED: Glucagon,Human Recombinant 1 MG Vial IM PRN (00:48)
[2021-04-15] MEDS ORDERED: Albuterol/Ipratropium 3.0-0.5 MG/3 ML Neb Soln NEB PRN (04:10)
[2021-04-15] MEDS ORDERED: Heparin Sodium 5,000 Units/ML Vial IVPUSH ONE (04:10)
[2021-04-15] MEDS: Lactated Ringers 1,000 ML IV SCH ×2 (05:02→21:40)
[2021-04-15] MEDS: Acetaminophen 325 MG Tab PO PRN ×2 (05:03→21:39)
[2021-04-15] MEDS: Insulin Aspart 100 Units/ML 3 ML Pen SUBCUT SCH ×5 (05:15→17:15)
[2021-04-15 07:08] LABS: CARBON DIOXIDE,CO2 20.8 mmol/L (21.0-32.0); ESTIMATED GFR 59.1 ml/min; POTASSIUM,K 3.9 mmol/L (3.5-5.1)
[2021-04-15] MEDS ORDERED: Sodium Chloride 0.9% 10 ML Syringe FLUSH PRN (07:57)
[2021-04-15] MEDS ORDERED: Sodium Chloride 0.9% 2.5 ML Syringe FLUSH PRN (07:57)
[2021-04-15] MEDS: Pantoprazole 40 MG in Sodium Chloride 0.9% 10 ML IVPUSH SCH (08:15)
[2021-04-15] MEDS: Morphine 2 MG/ML SYRINGE IVPUSH PRN ×3 (08:45→23:32)
[2021-04-15] MEDS ORDERED: Heparin Sodium 5,000 Units/ML Vial SUBCUT SCH (09:00)
[2021-04-15] MEDS: Ondansetron 4 MG/2 ML SDV IVPUSH PRN ×2 (12:39→23:46)
[2021-04-15] MEDS ORDERED: Misoprostol 200 MCG Tab PO ONE (17:30)
[2021-04-16] MEDS: Morphine 2 MG/ML SYRINGE IVPUSH PRN ×4 (04:03→20:36)
[2021-04-16] MEDS: Lactated Ringers 1,000 ML IV SCH ×3 (05:21→20:58)
[2021-04-16] MEDS: Ondansetron 4 MG/2 ML SDV IVPUSH PRN ×2 (06:53→13:29)
[2021-04-16 07:06] LABS: BLOOD UREA NITROGEN,BUN 12 mg/dL (7.0-18.0); CARBON DIOXIDE,CO2 26.1 mmol/L (21.0-32.0); CHLORIDE,CL 99 mmol/L (98-107); ESTIMATED GFR > 60.0 ml/min; GLUCOSE RANDOM 298 mg/dL (74-106); POTASSIUM,K 4.2 mmol/L (3.5-5.1); SODIUM,NA 134 mmol/L (136-145)
[2021-04-16] MEDS: Acetaminophen 325 MG Tab PO PRN (07:32)
[2021-04-16] MEDS: Insulin Aspart 100 Units/ML 3 ML Pen SUBCUT SCH ×3 (07:39→17:30)
[2021-04-16] MEDS: Pantoprazole 40 MG in Sodium Chloride 0.9% 10 ML IVPUSH SCH (08:36)
[2021-04-16] MEDS: oxyCODONE 5 MG Tab PO PRN ×3 (10:55→22:29)
[2021-04-16] MEDS ORDERED: Insulin Aspart 100 Units/ML 3 ML Pen SUBCUT ONE (22:13)
[2021-04-17] MEDS ORDERED: Insulin Aspart 100 Units/ML 3 ML Pen SUBCUT ONE (00:30)
[2021-04-17] MEDS: Morphine 2 MG/ML SYRINGE IVPUSH PRN ×4 (00:54→17:16)
[2021-04-17] MEDS: oxyCODONE 5 MG Tab PO PRN ×5 (02:34→23:37)
[2021-04-17] MEDS: Lactated Ringers 1,000 ML IV SCH (03:59)
[2021-04-17 06:19] LABS: BLOOD UREA NITROGEN,BUN 14 mg/dL (7.0-18.0); CARBON DIOXIDE,CO2 29.7 mmol/L (21.0-32.0); CHLORIDE,CL 104 mmol/L (98-107); ESTIMATED GFR > 60.0 ml/min; GLUCOSE RANDOM 124 mg/dL (74-106); POTASSIUM,K 4.2 mmol/L (3.5-5.1); SODIUM,NA 140 mmol/L (136-145)
[2021-04-17] MEDS: Pantoprazole 40 MG in Sodium Chloride 0.9% 10 ML IVPUSH SCH (08:01)
[2021-04-17] MEDS: Insulin Aspart 100 Units/ML 3 ML Pen SUBCUT SCH ×3 (08:05→18:03)
[2021-04-17] MEDS: Ondansetron 4 MG/2 ML SDV IVPUSH PRN ×2 (12:04→17:16)
[2021-04-18] MEDS: Acetaminophen 325 MG Tab PO PRN ×2 (01:33→10:37)
[2021-04-18] MEDS: Morphine 2 MG/ML SYRINGE IVPUSH PRN (04:09)
[2021-04-18] MEDS: Ondansetron 4 MG/2 ML SDV IVPUSH PRN (04:10)
[2021-04-18] MEDS: Insulin Aspart 100 Units/ML 3 ML Pen SUBCUT SCH ×3 (06:58→12:39)
[2021-04-18 06:59] LABS: BLOOD UREA NITROGEN,BUN 15 mg/dL (7.0-18.0); CARBON DIOXIDE,CO2 28.7 mmol/L (21.0-32.0); CHLORIDE,CL 98 mmol/L (98-107); ESTIMATED GFR > 60.0 ml/min; GLUCOSE RANDOM 408 mg/dL (74-106); POTASSIUM,K 4.7 mmol/L (3.5-5.1); SODIUM,NA 134 mmol/L (136-145)
[2021-04-18] MEDS: oxyCODONE 5 MG Tab PO PRN ×2 (08:06→14:50)
[2021-04-18] MEDS: Pantoprazole 40 MG in Sodium Chloride 0.9% 10 ML IVPUSH SCH (08:06)
[2021-04-18 12:02] VITALS: BP 100/62; PULSE 80
== END 2021-04-18 15:10 | disposition home or self-care (01) | DRG 779 ==
LOC: MW.ED 21:09 → MW.MS 04-15 01:32
PROVIDERS: ADMIT Student in an Organized Health Care Education/Training Program; ATTEND Student in an Organized Health Care Education/Training Program
DX: O02.1 Missed abortion (principal); U07.1 COVID-19; O24.011 Pre-existing type 1 diabetes mellitus, in pregnancy, first trimester; O98.52 Other viral diseases complicating childbirth; Z3A.08 8 weeks gestation of pregnancy
CPT/HCPCS: 36415; 76801; 76801-26; 76817; 76817-26; 80048; 80053; 81001; 82803; 82947; 83036; 83735; 84702; 85025; 85027; 86900; 86901; 99222; 99232; 99238; 99285; 99285-25; A9270-GY; C9113; J1815-GY; J2270; J2405; J3490; J7030; J7120; U0002

== ENCOUNTER 2023-11-28 13:56 | Emergency (ER) | payer SELFPAY ==
[2023-11-28] MEDS: oxyCODONE 5 MG Tab PO STA (14:50)
[2023-11-28 14:52] VITALS: BP 125/64; PULSE 85
== END 2023-11-28 14:55 | disposition home or self-care (01) ==
LOC: MW.ED 13:56
DX: K02.9 Dental caries, unspecified (principal); J45.909 Unspecified asthma, uncomplicated; E10.8 Type 1 diabetes mellitus with unspecified complications; Z79.4 Long term (current) use of insulin; Z79.899 Other long term (current) drug therapy; Z88.0 Allergy status to penicillin; Z75.8 Other problems related to medical facilities and other health care
CPT/HCPCS: 99282; A9270; 99283

== ENCOUNTER 2024-03-15 09:46 | Emergency (ER) | payer SELFPAY ==
[2024-03-15] MEDS: oxyCODONE 5 MG Tab PO STA (11:02)
[2024-03-15] MEDS: Clindamycin HCl 150 MG Cap PO STA (11:02)
[2024-03-15 11:07] VITALS: BP 144/69; PULSE 90
== END 2024-03-15 11:07 | disposition home or self-care (01) ==
LOC: MW.ED 09:46
DX: K04.7 Periapical abscess without sinus (principal); J45.909 Unspecified asthma, uncomplicated; E10.9 Type 1 diabetes mellitus without complications; Z88.0 Allergy status to penicillin; Z79.4 Long term (current) use of insulin; Z79.899 Other long term (current) drug therapy; Z75.8 Other problems related to medical facilities and other health care
CPT/HCPCS: 99283; A9270

== ENCOUNTER 2024-04-21 16:30 | Observation (INO) | payer SELFPAY ==
[2024-04-21] MEDS ORDERED: Sodium Chloride 0.9% 2.5 ML Syringe FLUSH PRN (17:26)
[2024-04-21] MEDS ORDERED: Sodium Chloride 0.9% 10 ML Syringe FLUSH PRN (17:26)
[2024-04-21] MEDS: Sodium Chloride 0.9% 1,000 ML IV ONE (17:33)
[2024-04-21] MEDS: Ondansetron 4 MG/2 ML SDV IVPUSH ONE (17:36)
[2024-04-21] MEDS: Ketorolac 30 MG/ML SDV IVPUSH ONE (17:36)
[2024-04-21 17:58] LABS: BASOPHILS ABSOLUTE AUTO 0.05 K/uL (0.00-0.20); EOSINOPHILS ABSOLUTE AUTO 0.02 K/uL (0.00-0.45); EOSINOPHILS PERCENT AUTO 0.4 % (0.0-6.0); HEMATOCRIT 21.8 % (37.0-47.0); HEMOGLOBIN 5.9 g/dL (12.0-16.0); LYMPHOCYTES ABSOLUTE AUTO 3.06 K/uL (1.00-4.80); LYMPHOCYTES PERCENT AUTO 62.4 % (24.0-44.0); MEAN PLATELET VOLUME 9.7 fL (9.4-12.3); MONOCYTES PERCENT AUTO 8.2 % (0.0-8.0); NEUTROPHILS ABSOLUTE AUTO 1.37 K/uL (1.80-7.70); NRBC ABSOLUTE 0.11 K/uL (0.00-0.02); NRBC PERCENT 2.2 /100WBC (0.0-0.2); PLATELET COUNT,PLT 704 K/uL (150-400); RED BLOOD CELL COUNT 3.69 M/uL (4.10-5.30)
[2024-04-21 18:02] LABS: PH,VENOUS 7.37 (7.31-7.41)
[2024-04-21 18:24] LABS: MEAN CORPUSCULAR HGB CONC 27.1 g/dL (32.0-36.0)
[2024-04-21 18:25] LABS: MEAN CORPUSCULAR VOLUME 59.1 fL (83.0-99.0)
[2024-04-21 18:26] LABS: A/G RATIO 0.8 (0.9-1.6); ALBUMIN 3.1 g/dL (3.4-5.0); BILIRUBIN TOTAL 0.2 mg/dL (0.2-1.0); CALCIUM 8.3 mg/dL (8.5-10.1); CARBON DIOXIDE,CO2 28.6 mmol/L (21.0-32.0); CREATININE 1.2 mg/dL (0.6-1.0); EST CRCL DRUG DOSING (CG) 56.19 mL/min; POTASSIUM,K 3.7 mmol/L (3.5-5.1); PROTEIN TOTAL,TP 6.9 g/dL (6.4-8.2)
[2024-04-21 19:03] LABS: APPEARANCE,URINE SLT CLOUDY; BILIRUBIN,URINE NEGATIVE (NEGATIVE); COLOR,URINE YELLOW; GLUCOSE,URINE >=1000 mg/dL (NEGATIVE); KETONES,URINE NEGATIVE (NEGATIVE); LEUKOCYTE ESTERASE,URINE TRACE (NEGATIVE); NITRITE,URINE NEGATIVE (NEGATIVE); OCCULT BLOOD,URINE MODERATE (NEGATIVE); PROTEIN,URINE 30 mg/dL (NEGATIVE); UROBILINOGEN,URINE 0.2 EU/dL (<2.0)
[2024-04-21 19:04] LABS: PERCENT FE SATURATION 1.64 % (20-55)
[2024-04-21 19:32] LABS: BACTERIA,URINE FEW (NEGATIVE); EPITHELIAL CELLS,URINE MODERATE (NONE-FEW); RBC,URINE 0-5 (0-2/HPF); WBC,URINE 0-5 (0-5/HPF); YEAST,URINE FEW
[2024-04-21] MEDS: Benzonatate 100 MG Cap PO ONE (19:55)
[2024-04-21] MEDS: Oseltamivir 75 MG Cap PO ONE (19:55)
[2024-04-21] MEDS: Iopamidol 755 MG/ML 500 ML Multipack Bottle IVPUSH ONE (20:13)
[2024-04-21] MEDS ORDERED: Melatonin 3 MG Tab PO PRN (21:23)
[2024-04-21] MEDS ORDERED: 50% Dextrose in Water 50 ML Syringe IVPUSH PRN (21:23)
[2024-04-21] MEDS ORDERED: Acetaminophen 325 MG Tab PO PRN (21:23)
[2024-04-21] MEDS ORDERED: Glucagon,Human Recombinant 1 MG Vial IM PRN (21:23)
[2024-04-21] MEDS ORDERED: Ondansetron 4 MG/2 ML SDV IVPUSH PRN (21:23)
[2024-04-21 22:03] LABS: TSH ULTRASENSITIVE 2.48 uIU/mL (0.36-3.74)
[2024-04-21] MEDS: Pantoprazole 40 MG in Sodium Chloride 0.9% 10 ML IVPUSH SCH (22:37)
[2024-04-21 23:09] LABS: HEMOGLOBIN A1C 10.7 %
[2024-04-21] MEDS: Insulin Aspart 100 Units/ML 3 ML Pen SUBCUT SCH (23:23)
[2024-04-22 02:38] LABS: BASOPHILS ABSOLUTE AUTO 0.05 K/uL (0.00-0.20); BASOPHILS PERCENT AUTO 0.9 % (0.0-1.0); EOSINOPHILS ABSOLUTE AUTO 0.02 K/uL (0.00-0.45); EOSINOPHILS PERCENT AUTO 0.4 % (0.0-6.0); HEMATOCRIT 28.8 % (37.0-47.0); HEMOGLOBIN 8.6 g/dL (12.0-16.0); IMMATURE GRAN ABSOLUTE AUTO 0.01 K/uL (0.00-0.05); IMMATURE GRAN PERCENT AUTO 0.2 % (0.0-0.4); LYMPHOCYTES ABSOLUTE AUTO 2.79 K/uL (1.00-4.80); LYMPHOCYTES PERCENT AUTO 50.7 % (24.0-44.0); MEAN CORPUSCULAR HEMOGLOBIN 19.7 pg (28.0-32.0); MEAN CORPUSCULAR HGB CONC 29.9 g/dL (32.0-36.0); MEAN CORPUSCULAR VOLUME 66.1 fL (83.0-99.0); MEAN PLATELET VOLUME 9.7 fL (9.4-12.3); MONOCYTES ABSOLUTE AUTO 0.48 K/uL (0.00-0.80); MONOCYTES PERCENT AUTO 8.7 % (0.0-8.0); NEUTROPHILS ABSOLUTE AUTO 2.15 K/uL (1.80-7.70); NEUTROPHILS PERCENT AUTO 39.1 % (41.0-71.0); NRBC ABSOLUTE 0.15 K/uL (0.00-0.02); NRBC PERCENT 2.7 /100WBC (0.0-0.2); PLATELET COUNT,PLT 600 K/uL (150-400); RED BLOOD CELL COUNT 4.36 M/uL (4.10-5.30)
[2024-04-22 03:07] LABS: CALCIUM 8.1 mg/dL (8.5-10.1); CARBON DIOXIDE,CO2 19.4 mmol/L (21.0-32.0); CREATININE 1.3 mg/dL (0.6-1.0); EST CRCL DRUG DOSING (CG) 51.87 mL/min; MAGNESIUM 1.4 mg/dL (1.8-2.4)
[2024-04-22 03:55] LABS: POTASSIUM,K 4.6 mmol/L (3.5-5.1)
[2024-04-22] MEDS: Benzonatate 100 MG Cap PO PRN (08:25)
[2024-04-22] MEDS: guaiFENesin 600 MG Tab.ER PO PRN (08:25)
[2024-04-22] MEDS: Oseltamivir 75 MG Cap PO SCH (08:25)
[2024-04-22] MEDS: Magnesium Sulf/Wat 2 GM/50 mL 2 GM in Premix Bag 1 BAG IV ONE (09:36)
[2024-04-22] MEDS: Ondansetron 4 MG Tab.DIS PO PRN (10:16)
[2024-04-22] MEDS: Sodium Ferric Gluconate Cmplex 125 MG in Sodium Chloride 0.9% 100 ML IV ONE (10:17)
[2024-04-22 13:06] VITALS: BP 130/72; PULSE 70
== END 2024-04-22 13:00 | disposition home or self-care (01) ==
LOC: MW.ED 16:30 → MW.MS 21:04
PROVIDERS: ADMIT Family Medicine; ATTEND Family Medicine
DX: D50.9 Iron deficiency anemia, unspecified (principal); J10.1 Influenza due to other identified influenza virus with other respiratory manifestations; E10.65 Type 1 diabetes mellitus with hyperglycemia; J45.909 Unspecified asthma, uncomplicated; F32.A Depression, unspecified; Z79.899 Other long term (current) drug therapy; Z88.0 Allergy status to penicillin
CPT/HCPCS: 36415; 36430; 71046; 74177; 80048; 80053; 81001; 82009; 82803; 82947; 83036; 83550; 83735; 84443; 84703; 85025; 86850; 86900; 86901; 86920; 87086; 87428; 87651; A9270; J1885; J2405; J2470; J2916; J3475; J7030; P9016; Q9967; 99283

== ENCOUNTER 2025-01-07 20:46 | Emergency (ER) | payer OTHER ==
[2025-01-07] MEDS ORDERED: Sodium Chloride 0.9% 10 ML Syringe FLUSH PRN (21:07)
[2025-01-07] MEDS ORDERED: Sodium Chloride 0.9% 2.5 ML Syringe FLUSH PRN (21:07)
[2025-01-07 21:20] LABS: BASOPHILS ABSOLUTE AUTO 0.04 K/uL (0.00-0.20); BASOPHILS PERCENT AUTO 0.4 % (0.0-1.0); EOSINOPHILS ABSOLUTE AUTO 0.13 K/uL (0.00-0.45); EOSINOPHILS PERCENT AUTO 1.3 % (0.0-6.0); IMMATURE GRAN ABSOLUTE AUTO 0.02 K/uL (0.00-0.05); IMMATURE GRAN PERCENT AUTO 0.2 % (0.0-0.4); LYMPHOCYTES ABSOLUTE AUTO 0.46 K/uL (1.00-4.80); LYMPHOCYTES PERCENT AUTO 4.4 % (24.0-44.0); MEAN PLATELET VOLUME 9.8 fL (9.4-12.3); MONOCYTES ABSOLUTE AUTO 0.61 K/uL (0.00-0.80); MONOCYTES PERCENT AUTO 5.9 % (0.0-8.0); NEUTROPHILS ABSOLUTE AUTO 9.11 K/uL (1.80-7.70); NEUTROPHILS PERCENT AUTO 87.8 % (41.0-71.0); NRBC ABSOLUTE 0.00 K/uL (0.00-0.02); NRBC PERCENT 0.0 /100WBC (0.0-0.2); PLATELET COUNT,PLT 457 K/uL (150-400); RED BLOOD CELL COUNT 4.09 M/uL (4.10-5.30); WHITE BLOOD CELL COUNT,WBC 10.37 K/uL (3.9-11.3)
[2025-01-07 21:24] LABS: PH,VENOUS 7.37 (7.32-7.43)
[2025-01-07 21:25] LABS: BASE EXCESS VENOUS -3.4 (-2.0-3.0); BICARBONATE,VENOUS 21.0 mEq/L (22-29); PCO2 VENOUS 37.0 mmHG (41-51); PO2 VENOUS 33.0 mmHG (35-45)
[2025-01-07] MEDS: Ondansetron 4 MG/2 ML SDV IVPUSH ONE (21:26)
[2025-01-07 21:32] LABS: INR 1.04 (0.86-1.11)
[2025-01-07 21:51] LABS: A/G RATIO 0.9 (0.9-1.6); ALANINE AMINOTRANSFERASE,ALT 16 IU/L (14-63); ASPARTATE AMNIOTRANSFERASE,AST 15 IU/L (15-37); BILIRUBIN TOTAL 0.3 mg/dL (0.2-1.0); BLOOD UREA NITROGEN,BUN 15 mg/dL (7.0-18.0); CARBON DIOXIDE,CO2 20.7 mmol/L (21.0-32.0); CHLORIDE,CL 103 mmol/L (98-107); CREATININE 1.2 mg/dL (0.6-1.0); EST CRCL DRUG DOSING (CG) 55.68 mL/min; GLUCOSE RANDOM 273 mg/dL (74-106); POTASSIUM,K 3.7 mmol/L (3.5-5.1); PRO B-TYPE NATRIUR PEPT,BNPPRO 122 pg/mL (0-125); PROTEIN TOTAL,TP 7.8 g/dL (6.4-8.2); SODIUM,NA 134 mmol/L (136-145)
[2025-01-07 21:53] LABS: ESTIMATED GFR 62 mL/min (>60)
[2025-01-07] MEDS: Ketorolac 30 MG/ML SDV IVPUSH ONE (22:37)
[2025-01-07] MEDS: Magnesium Sulfate 2 GM/50 mL 2 GM in Premix Bag 1 BAG IV ONE (22:37)
[2025-01-07 23:08] LABS: APPEARANCE,URINE CLEAR; GLUCOSE,URINE 250 mg/dL (NEGATIVE); OCCULT BLOOD,URINE NEGATIVE (NEGATIVE)
[2025-01-07 23:17] LABS: AMPHETAMINES SCREEN, URINE NEGATIVE (CUTOFF=500); BUPRENORPHINE SCREEN,URINE NEGATIVE (CUTOFF=10); METHADONE SCREEN, URINE NEGATIVE (CUTOFF=200); METHAMPHETAMINES SCREEN, URINE NEGATIVE (CUTOFF=500); OXYCODONE SCREEN,URINE NEGATIVE (CUT0FF=100); PCP SCREEN,URINE NEGATIVE (CUTOFF=25); THC SCREEN,URINE 20 NG/ML PRESUMPTIVE POSITIVE (CUTOFF=50)
[2025-01-07 23:40] VITALS: BP 116/60; PULSE 90
== END 2025-01-07 23:39 | disposition home or self-care (01) ==
LOC: MW.ED 20:46
DX: J06.9 Acute upper respiratory infection, unspecified (principal); A08.4 Viral intestinal infection, unspecified; F12.90 Cannabis use, unspecified, uncomplicated; E83.42 Hypomagnesemia; E10.9 Type 1 diabetes mellitus without complications; Z79.4 Long term (current) use of insulin; Z88.0 Allergy status to penicillin; Z79.899 Other long term (current) drug therapy
CPT/HCPCS: 36415; 71045; 80053; 80305; 81003; 81025; 82009; 82803; 82947; 83690; 83735; 83880; 84484; 85025; 85610; 87428; 93005; 96361; 96365; 96375; 99284; A9270; J1885; J2405; J3475; J7030; 93010